=== PATIENT | female | born 1960 | race Caucasian/White ===

== ENCOUNTER → 2017-12-25 06:37 | Outpatient (CLI) | payer OTHER, SELFPAY ==
--- NOTE | 2017-12-25 06:41 | DI.MRI.S_ITS ---
PROCEDURE: MR SHOULDER LT WO CON INDICATIONS: LEFT SHOULDER PAIN TECHNIQUE: Noncontrast oblique coronal T2 fast spin echo with fat saturation, oblique sagittal T1 spin echo and T2 fast spin echo with fat saturation, axial T1 spin echo and T2 fast spin echo with fat saturation through the shoulder. COMPARISON: None. FINDINGS: Image quality: Excellent. Rotator cuff: There is tendinosis and moderate grade articular and bursal surface partial-thickness involving distal supraspinatus at its insertion the humeral head. Tendinosis high-grade bursal surface partial-thickness involving distal infraspinatus is seen at its insertion the humeral head extending to the musculotendinous junction. Subscapularis tendon is intact. Sagittal images demonstrate moderate supraspinatus muscle atrophy. Bones and bursae: No bone marrow contusions or fractures. There is moderate a.c. joint in the glenohumeral joint osteoarthritis. No fracture or dislocation. No acromioclavicular joint degeneration. The acromion demonstrates conventional anatomy, without an os acromiale. No pathologic subacromial-subdeltoid or subcoracoid bursal fluid is present. Capsule and soft tissues: In the absence of intra-articular contrast, there is suggestion of focal superior anterior labral tear at 1:00 to 2:00 position. Degenerative changes well inferior labrum is seen with possible inferior labral tear at 5 to 6:00 position. The long head of the biceps tendon demonstrates normal location and morphology. The rotator interval appears normal, without fibrosis. The coracohumeral ligament is normal in thickness. IMPRESSION: 1. Tendinosis and moderate grade articular and bursal surface partial-thickness involving distal supraspinatus at its insertion the humeral head. Moderate supraspinatus muscle atrophy. 2. Tendinosis and moderate to high-grade bursal surface partial-thickness involving distal infraspinatus extending to muscle or tendinous junction. 3. Suggestion of superior anterior labral tear at one to 2:00 position an anterior inferior labral tear at 5 to 6:00 position. 4. Moderate a.c. joint and glenohumeral joint osteoarthritis. Dictated by: Rob Mcdwoell M.D. on 12/25/2017 at 9:22 Approved by: Rob Mcdowell M.D. on 12/25/2017 at 9:52
== END ==
PROVIDERS: Visit Provider Orthopaedic Surgery
DX: M19.012 Primary osteoarthritis, left shoulder (principal); M62.512 Muscle wasting and atrophy, not elsewhere classified, left shoulder; M25.512 Pain in left shoulder
CPT/HCPCS: 73221

== ENCOUNTER → 2018-06-07 08:52 | Outpatient (CLI) | payer OTHER, SELFPAY ==
[2018-06-07 09:24] LABS: Add Manual Diff / Slide Review NO; Basophils Absolute Auto 100 /uL (0-100); Basophils Percent Auto 0.9 % (0-2); Eosinophils Absolute Auto 400 /uL (0-450); Eosinophils Percent Auto 6.7 % (2-4); Hematocrit 40.6 % (36-46); Hemoglobin 13.6 g/dL (12.0-16.0); Lymphocytes Absolute Auto 1500 /uL (1100-4500); Mean Corpuscular HGB Conc 33.4 % (30-36); Mean Corpuscular Hemoglobin 29.8 PG (26-34); Mean Corpuscular Volume 89.1 fL (80-100); Monocytes Absolute Auto 400 /uL (0-900); Monocytes Percent Auto 7.4 % (3-14); Neutrophils Absolute Auto 3400 /uL (1500-7000); Platelet Count 247 X10^3/uL (150-400); Red Blood Cell Count 4.56 X10^6/uL (4.0-5.2); Red Cell Distribution Width 14.4 % (11.6-14.8); White Blood Cell Count 5.7 X10^3/uL (4.5-11.0)
[2018-06-07 09:34] LABS: Alanine Aminotransferase 24 IU/L (9-52); Albumin 4.1 g/dL (3.5-5.0); Albumin Globulin Ratio 1.3 (1.0-2.8); Alkaline Phosphatase 70 U/L (38-126); Aspartate Aminotransferase 17 IU/L (14-36); BUN Creatinine Ratio 22.9 (6-22); Bilirubin Total 0.3 mg/dL (0.2-1.3); Blood Urea Nitrogen 16 mg/dL (7-17); Calcium 9.1 mg/dL (8.4-10.2); Carbon Dioxide 28 mmol/L (22-32); Chloride 108 mmol/L (98-107); Cholesterol 185 mg/dL (140-199); Estimated Glomerular Filt Rate > 60.0 mL/min (>60); Globulin 3.1 g/dL (1.7-4.1); Glucose 102 mg/dL (70-100); HDL Cholesterol 45 mg/dL (40-60); HEMOLYSIS < 15 (0-50); LDL Cholesterol Calculated 110 mg/dL (<100); Sodium 142 mmol/L (137-145); Total Protein 7.2 g/dL (6.3-8.2); Triglycerides 152 mg/dL (35-150)
[2018-06-07 10:04] LABS: Thyroid Stimulating Hormone 2.32 uIU/mL (0.47-4.68)
[2018-06-07 11:00] LABS: Appearance Urine UA CLEAR; Bilirubin Urine UA NEGATIVE (NEGATIVE); Color Urine UA YELLOW; Glucose Urine UA NEGATIVE (Negative); Ketones Urine UA NEGATIVE (NEGATIVE); Leukocyte Esterase Urine UA NEGATIVE (NEGATIVE); Nitrite Urine UA NEGATIVE (Negative); Occult Blood Urine UA 3+ (Negative); Protein Urine UA NEGATIVE (Negative); Specific Gravity Urine UA >=1.030 (1.000-1.035); Urobilinogen Urine UA 0.2 E.U./dL (0.2)
[2018-06-07 11:01] LABS: Bacteria Urine None Seen; WBC Urine None Seen (0-5/HPF)
[2018-06-07 11:06] LABS: Culture Indicated Urine Cult Not Indicated; RBC Urine 5-10/HPF (0-5/HPF)
== END ==
PROVIDERS: PCP Family Medicine; Visit Provider Family Medicine
DX: Z51.81 Encounter for therapeutic drug level monitoring (principal); Z13.220 Encounter for screening for lipoid disorders; Z13.29 Encounter for screening for other suspected endocrine disorder
CPT/HCPCS: 36415; 80053; 80061; 81003; 81015; 84443; 85025

== ENCOUNTER 2019-01-25 14:51 | Day surgery (SDC) | payer OTHER, SELFPAY ==
[2019-01-25] VITALS (7 sets, daily range): BP systolic 129–146; BP diastolic 80–89; PULSE 61–92; RESP 12–16; TEMP 36.2–36.9; O2SAT 97–100; BMI 21.3
--- NOTE | 2019-01-25 16:45 | PM.HP.1 ---
History of Present Illness History of Present Illness Date Patient Seen: 01/25/19 Time Patient Seen: 16:53 Chief complaint: [id number] Narrative: 58-year-old woman presents for 1st ever screening colonoscopy No family history of colon or rectal cancer, no family history of colon polyps No IBD No intestinal complaints Patient History Medical History (Updated 01/25/19 @ 15:20 by Kayla Johnson RN) Anxiety (Acute) Asthma (Acute) Pulmonary embolism (Acute) Surgical History Status post breast biopsy Social History household members: family Smoking Status: Former smoker (quit 1989) Tobacco: How many years used: 6 alcohol intake: never Family & Social History Social History: household members family Tobacco & Substance use: Smoking Status Former smoker alcohol intake never Meds Home Medications and Allergies Home Medications Medication Instructions Recorded Confirmed Type tizanidine 4 mg tablet 4 mg PO BID PRN #60 tab 05/31/18 01/25/19 Rx alprazolam 0.5 mg tablet 0.5 mg PO BID PRN #120 tab 12/08/18 01/25/19 Rx albuterol sulfate 90 mcg/actuation 2 puff INHALATION Q4HP PRN #1 inh 12/24/18 01/25/19 Rx aerosol inhaler Allergies Allergy/AdvReac Type Severity Reaction Status Date / Time clindamycin Allergy Severe SOB/THROAT Verified 07/07/18 10:23 SWELL levofloxacin Allergy Severe Difficulty Verified 01/25/19 15:16 Breathing moxifloxacin Allergy Severe Difficulty Verified 01/25/19 15:14 Breathing NSAIDS (Non-Steroidal Allergy Severe SOB/THROAT Verified 07/07/18 10:23 Anti-Inflamma SWELLS terbinafine Allergy Mild Nausea, Verified 09/03/18 12:48 diarrhea cefuroxime Allergy Unknown Verified 07/07/18 10:23 clarithromycin Allergy Unknown Verified 07/07/18 10:23 metronidazole Allergy Unknown Verified 07/07/18 10:23 nitrofurantoin Allergy Unknown Verified 07/07/18 10:23 omeprazole Allergy Unknown Verified 07/07/18 10:23 Quinolones Allergy Unknown Verified 07/07/18 10:23 Sulfa (Sulfonamide Allergy Unknown Verified 07/07/18 10:23 Antibiotics) tramadol Allergy Unknown Verified 07/07/18 10:23 sertraline AdvReac Mild DIZZY, Verified 07/07/18 10:23 FLOATING Review of Systems Constitutional Constitutional: Denies fever(s) Eyes Eyes: Denies bulging eyes ENT Ears, Nose, Mouth, and Throat: No lip swelling Cardiovascular Cardiovascular: Denies generalize swelling Respiratory Respiratory: Denies stridor Gastrointestinal Gastrointestinal: Denies coffee ground emesis Musculoskeletal Musculoskeletal: Denies loss of height Integumentary/Breasts Skin/Breast: Denies wounds Neurologic Neurologic: Denies abnormal speech and Denies confusion Psychiatric Psychiatric: Denies confusion and Denies tactile hallucinations Endocrine Endocrine: Denies deepening of the voice Hematologic/Lymphatic Hematologic/Lymphatic: Denies lymphadenopathy Allergic/Immunologic Allergic/Immunologic: Denies lip swelling Exam Vital Signs (past 8 hours): - 01/25/19 15:20 Temperature 98.5 F Pulse Rate 85 Respiratory Rate 14 Blood Pressure 133/86 Pulse Oximetry 97 Oxygen Delivery Method Room Air Const General: cooperative and healthy appearing Orientation: alert HENMT Head: normal to inspection Nose: nares normal Mouth: oral mucosae normal and lip normal Eyes Eyelids: eyelids normal Conjunctivae: conjunctivae normal Sclera: sclerae normal Neck Neck: supple and other (No thyromegally) Chest Chest: other (LCTAB , regular respiratory effort) Cardio Rhythm: regular rhythm Heart Sounds: S1 normal, S2 normal, no gallops, no murmurs and no rubs GI Other: Abdomen soft nontender nondistended Skin General: no rashes or lesions noted Neuro General: alert and awake Psych Appearance: grossly normal Affect: normal affect Assessment & Plan Assessment & Plan narrative: 58-year-old woman here for 1st ever screening colonoscopy Risks of procedure including bleeding, perforation, , hypoxia, missed lesions all discussed All questions answered Patient ready to proceed
--- NOTE | 2019-01-25 16:55 | PM.OP.ENDO ---
Operative Date/Time/Diagnoses Date of procedure: 01/25/19 Time of procedure: 17:43 Pre-op diagnosis: Colorectal cancer screening Post-op diagnosis: same Procedure & Clinicians Study performed: Screening colonoscopy - complete Same procedure as scheduled: Yes Indications: 58-year-old female presents for 1st ever screening colonoscopy Surgeon: Dewey Castellon Procedure Notes SCOAP/Timeout: COMPLETED Procedure in detail: Patient was brought to the endoscopy suite a time-out was completed, she was sedated with a total of 10 mg of midazolam and 225 micro g of fentanyl over the entire course of her procedure. A digital rectal exam was performed. This was without abnormality. The 160 cm colonoscope was then introduced into the anus and advanced through the folds of the rectum and colon to the cecum. The colorectal junction was quite tight requiring multiple maneuvers to negotiate past. Ultimately the cecum was identified via prominent ileocecal valve and Crows foot. There was a the near of adherent stool on much of the right colon and cecum that was cleared via irrigation. The scope was slowly withdrawn. There was transverse colon diverticula as well as substantial degree of sigmoid diverticula. Within the rectum the scope was retroflexed -there were sizable internal hemorrhoids. No additional lesions identified Prep was adequate Scope withdrawal time: 11 Sedation minutes: 41 Specimen(s): none sent Complications: none Impression: Significant diverticula of the sigmoid colon Mild amount of diverticula in the transverse colon Post-procedure Recommendations: Colonscopy in 10 years Plan for aftercare: As needed Follow up: as needed Disposition: PACU
[2019-01-25] MEDS: fentaNYL 250 MCG/5 ML INJ IV (17:42)
[2019-01-25] MEDS: MIDAZOLAM 5 MG/5 ML VIAL IV (17:45)
--- NOTE | 2019-01-25 18:09 | SUR.PHASEI ---
Assumed care at 1805. Pt dozing intermittently. Reported headache but denied abd pain. Abd soft.
== END 2019-01-25 18:43 | disposition home or self-care (01) ==
PROVIDERS: PCP Family Medicine; Visit Provider Surgery
PROC: 0DJD8ZZ Inspection of Lower Intestinal Tract, Via Natural or Artificial Opening Endoscopic (ICD-10-PCS; CPT 45378; principal; 2019-01-25 16:00)
DX: Z12.11 Encounter for screening for malignant neoplasm of colon (principal); K57.30 Diverticulosis of large intestine without perforation or abscess without bleeding; F41.9 Anxiety disorder, unspecified; J45.909 Unspecified asthma, uncomplicated; Z86.711 Personal history of pulmonary embolism
CPT/HCPCS: 45378; 99152; 99153; J2250; J3010

== ENCOUNTER → 2019-07-20 12:24 | Outpatient (CLI) | payer OTHER, SELFPAY ==
--- NOTE | 2019-07-20 12:25 | DI.MG.S_ITS ---
BILATERAL DIGITAL SCREENING MAMMOGRAM 3D/2D WITH CAD: 07/20/2019 CLINICAL: Routine screening. Family history of breast cancer. Comparison is made to exams dated: 05/08/2014 mammogram, 05/06/2013 mammogram, 05/05/2012 [facility], and 04/20/2012 stereotactic biopsy - [facility] [place] [place]. The tissue of both breasts is extremely dense, which lowers the sensitivity of mammography. Current study was also evaluated with a Computer Aided Detection (CAD) system. There is architectural distortion in the left breast at 12 o'clock middle depth. No other significant masses, calcifications, or other findings are seen in either breast. IMPRESSION: INCOMPLETE: NEEDS ADDITIONAL IMAGING EVALUATION The architectural distortion in the left breast is indeterminate. Additional views with possible ultrasound are recommended. This exam was interpreted at Station ID: [id number]. NOTE: For mammograms, a report in lay terms will be sent to the patient. Approximately 15% of breast malignancies will not be visualized mammographically. In the management of a palpable breast mass, a negative mammogram must not discourage biopsy of a clinically suspicious lesion. Electronically Signed By: Carie trivedi/:07/20/2019 17:07:46 letter sent: Additional Imaging Needed ACR BI-RADS Category 0: Incomplete [id number]
== END ==
PROVIDERS: PCP Internal Medicine; Referring Provider Internal Medicine; Visit Provider Family Medicine
DX: Z12.31 Encounter for screening mammogram for malignant neoplasm of breast (principal); Z80.3 Family history of malignant neoplasm of breast
CPT/HCPCS: 77063; 77067

== ENCOUNTER → 2019-08-04 14:08 | Outpatient (CLI) | payer OTHER, SELFPAY ==
--- NOTE | 2019-08-04 14:10 | DI.US.S_ITS ---
ULTRASOUND OF LEFT BREAST AND AXILLA: 08/04/2019 CLINICAL: Additional evaluation requested from prior study. Comparison is made to exams dated: 08/04/2019 mammogram, 07/20/2019 mammogram, 05/08/2014 mammogram, and 05/06/2013 mammogram - [facility]. Color flow and real-time ultrasound of the left breast axilla were performed. Bradford scale images of the real-time examination were reviewed. There is a 1 cm x 1.2 cm x 1 cm irregular mass with angular margins in the left breast at 2 o'clock middle depth 3 cm from the nipple. This irregular mass is hypoechoic with no posterior acoustic shadowing or enhancement. This correlates with mammography findings. Color flow imaging demonstrates that there is adjacent vascularity. No significant abnormalities were seen sonographically in the left axilla. IMPRESSION: HIGHLY SUGGESTIVE OF MALIGNANCY The 1 cm x 1.2 cm x 1 cm irregular mass in the left breast is highly suggestive of malignancy. An ultrasound guided biopsy is recommended. Findings and recommendations for biopsy were discussed with the patient by Dr. Nguyễn during today's visit. This exam was interpreted at Station ID: [id number]. Electronically Signed By: Leonid Villatoro M.D. aty/:08/04/2019 15:08:59 letter sent: Biopsy Required Ultrasound BI-RADS: 5 Highly suggestive of malignancy
--- NOTE | 2019-08-04 14:10 | DI.MG.S_ITS ---
UNILATERAL LEFT DIGITAL DIAGNOSTIC MAMMOGRAM 3D/2D WITH ADDITIONAL VIEWS: 08/04/2019 CLINICAL: Additional evaluation requested from prior study. Comparison is made to exams dated: 07/20/2019 mammogram, 05/08/2014 mammogram, and 05/06/2013 mammogram - [facility]. The tissue of left breast is extremely dense, which lowers the sensitivity of mammography. There is a 1.2 cm irregular equal density focal asymmetry in the left breast at 12 o'clock middle depth. There is architectural distortion associated with the focal asymmetry. No other significant masses or calcifications are seen in the breast. IMPRESSION: INCOMPLETE: NEEDS ADDITIONAL IMAGING EVALUATION The 1.2 cm irregular equal density focal asymmetry in the left breast is indeterminate. An ultrasound is recommended for further evaluation and is scheduled to immediately follow this study. This exam was interpreted at Station ID: [id number]. NOTE: For mammograms, a report in lay terms will be sent to the patient. Approximately 15% of breast malignancies will not be visualized mammographically. In the management of a palpable breast mass, a negative mammogram must not discourage biopsy of a clinically suspicious lesion. Electronically Signed By: Leonid Villatoro M.D. aty/:08/04/2019 14:51:47 ACR BI-RADS Category 0: Incomplete [id number]
== END ==
PROVIDERS: PCP Internal Medicine; Referring Provider Nurse Practitioner Family; Visit Provider Nurse Practitioner Family
DX: R92.8 Other abnormal and inconclusive findings on diagnostic imaging of breast (principal); N63.21 Unspecified lump in the left breast, upper outer quadrant
CPT/HCPCS: 76642; 77065; G0279

== ENCOUNTER → 2019-08-10 07:38 | Outpatient (CLI) | payer OTHER, SELFPAY ==
--- NOTE | 2019-08-10 | PATH_ITS ---
[facility] Accession Number: [id number] . 01 Material submitted: . breast - LEFT BREAST MASS . 01 Clinical history: . LEFT BREAST MASS . 01 Diagnosis: A. Left Breast, Mass, Biopsy: Invasive carcinoma, with ductal and lobular features, grade 2 of 3 ([place] combined histologic grade, total score 7/9) with the following features: 1. Tubular differentiation: Little or none. (3/3) 2. Nuclear pleomorphism: Intermediate. (2/3) 3. Mitotic rate: Intermediate. (2/3) 4. Size of invasive carcinoma: Present on multiple cores, single largest dimension of at least 13 mm in this sample. 5. Ductal carcinoma in situ and Lobular in situ neoplasia: Absent. 6. Calcifications: Absent. 7. Lymphatic space invasion: Multifocally present. 8. Prognostic markers: a. Estrogen receptor status: Positive (99%, Strong). b. Progesterone receptor status: Positive (More than 85%, Strong). c. HER2 status: Negative for protein overexpression by immunohistochemistry (0-1+). [facility] 08/12/2019 1244 Local . 01 Electronically signed: Bharathi Bardales MD, Pathologist NPI- [id number] . 01 Gross description: . Received one formalin-filled container, labeled with the patient's name and designated left breast mass. The specimen is received with a plastic filter in container, sample loose in container and consists of multiple yellow-rivas, rough, cylindrical-shaped portions of tissue which range in size from 1.2 x 0.2 x 0.2 cm to 1.7 x 0.3 x 0.2 cm. All fragments are entirely submitted in one cassette. Collection date: 3/25/20. Collection time per container: 8:42 a.m. Total fixation time: Approximately 12 hours. (DC:[id number]) /FRR 08/11/2019 0220 Local . 01 Microscopic: . D2-40 and p63 immunostains are performed on block A1 in order to assess areas suspicious for lymphovascular space invasion. The areas of interest demonstrate immunoreactivity for D2-40 and are negative for p63, in support of the diagnosis of lymphatic space invasion. Smooth muscle myosin is additionally negative in areas suspicious for in-situ neoplasia, in support of no evidence of in-situ neoplasia. . E-cadherin and beta-catenin immunostains are performed on block A1 in order to assess for lobular phenotype. For both markers, the invasive carcinoma has abnormal immunohistochemical staining pattern, with lost to attenuated membranous staining, focally punctate but also focally strong. These findings, along with the morphologic evidence of some glandular space formation, are best classified as invasive carcinoma with both ductal and lobular differentiation. . Poor preservation artifacts limit histologic assessment of this biopsy. . Predictive marker immunohistochemical studies are performed on block A1 with the invasive carcinoma showing the following results: . Estrogen receptor (SP1): Positive (99% of tumor cells staining, Staining intensity: Strong). Progesterone receptor (1E2): Positive (more than 85% of tumor cells staining, Staining intensity: Strong). Her2 (4B5): Negative for protein overexpression by immunohistochemistry (0-1+). . Internal controls for ER and MS are positive. Cold ischemic time is <5 minutes. The scoring criteria for breast biomarkers by immunohistochemistry is based on the ASCO/CAP guidelines (Toro AC et al, J Clin Oncol: 2017Nov 24;36(20):3289-4914 and Nithin CERVANTES et al, Arch Pathol Lab Med: 2009;134(6):907-22). Deparaffinized sections of formalin fixed tissue (along with appropriate positive controls) are incubated with the above antibody(s). Using the automated [place] stainer, tissue is incubated with the designated antibody which is then localized by a non-biotin, dual polymer detection system. The external controls are reviewed for appropriate reactivity and found to be adequate. Results on the target cell population are indicated above. These tests have not been validated on decalcified tissue. This test was developed and its performance characteristics determined by [facility]. It has not been cleared or approved by the U.S. Food and Drug Administration. The FDA has determined that such clearance or approval is not necessary. This test is used for clinical purposes. It should not be regarded as investigational or for research. . 01 Pathologist provided ICD-10: C50.912 . 01 CPT . 155710, F10713, U12078, 956342, 017746, 222580 Performed at: [address] [facility] [address], [place], [place] [id number] MD Magdi Verduzco MD Phone: [phone]
--- NOTE | 2019-08-10 | DI.MG.S_ITS ---
UNILATERAL LEFT DIGITAL DIAGNOSTIC MAMMOGRAM POST-NEEDLE BIOPSY: 08/10/2019 CLINICAL: Left breast mass. Comparison is made to exams dated: 08/04/2019 mammogram, 07/20/2019 mammogram, and 05/08/2014 mammogram - [facility]. The tissue of left breast is heterogeneously dense. This may lower the sensitivity of mammography. There is a marker clip in the appropriate position in the left breast at 1 o'clock middle depth. This marker clip placement is at the biopsy site. This correlates with ultrasound findings. IMPRESSION: POST PROCEDURE MAMMOGRAM FOR MARKER PLACEMENT There was a successful marker clip placement in the left breast middle depth. This exam was interpreted at Station ID: [id number]. NOTE: For mammograms, a report in lay terms will be sent to the patient. Approximately 15% of breast malignancies will not be visualized mammographically. In the management of a palpable breast mass, a negative mammogram must not discourage biopsy of a clinically suspicious lesion. Electronically Signed By: Clayton ortiz/corby:08/11/2019 14:54:41 ACR BI-RADS Category Post-procedure mammogram for marker placement
--- NOTE | 2019-08-10 07:40 | DI.US.S_ITS ---
ULTRASOUND GUIDED BIOPSY LEFT BREAST USING VACUUM DEVICE WITH MARKING DEVICE INSERTED AND POST MAMMOGRAPHIC IMAGIN08/10/2019 CLINICAL: Left breast mass. PATIENT CONSENT: Risks (minor bleeding, infection, vasovagal reaction and repeat procedure), benefits and alternatives were explained to the patient and written informed consent was obtained. Correlation is made to exams dated: 08/10/2019 mammogram, 08/04/2019 ultrasound, 08/04/2019 mammogram, 07/20/2019 mammogram, and 05/08/2014 mammogram - [facility]. An ultrasound guided biopsy using real-time ultrasound was performed for the concerning 0.8 cm x 0.7 cm x 0.8 cm indistinct irregular shaped solid mass located in the left breast at 1 o'clock middle depth. The skin was prepped in the usual manner. Local anesthetic was administered to the access site. A skin tito was made in the breast. The abnormality was approached from the lateral aspect. A 13 gauge biopsy needle was placed adjacent to the abnormality under ultrasound guidance. Once the needle was documented to be in the correct location, five specimens were obtained using the Mammotome biopsy system. The patient received additional local anesthetic during the procedure. A Vision marker clip was inserted into the biopsy cavity. A skin closure strip and a sterile dressing were applied to the access site. Post procedure mammographic imaging demonstrates the location device at the targeted area and partial removal of the abnormality. The specimens were sent to the laboratory for pathological analysis. IMPRESSION: ULTRASOUND GUIDED BIOPSY MALIGNANT Ultrasound guided biopsy of the 0.8 cm x 0.7 cm x 0.8 cm solid mass in the left breast at 1 o'clock middle depth was successful. 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 Pathology results are concordant with mammography and ultrasound findings. This exam was interpreted at Station ID: [id number]. Clayton Hinton M.D. [facility],ddp/:08/15/2019 11:04:09
--- NOTE | 2019-08-10 08:55 | DI.MG.S_ITS ---
Patient Name: CATHY PHILLIPS date: 1960 Sex: F Attending Physician: Gianfranco Indications: Date: 08/10/2019 08:09 At the request of: JUANA FLANNERY Procedure: MM diagnostic mammo [id number] UNILATERAL LEFT DIGITAL DIAGNOSTIC MAMMOGRAM POST-NEEDLE BIOPSY: 08/10/2019 CLINICAL: Left breast mass. Comparison is made to exams dated: 08/04/2019 mammogram, 07/20/2019 mammogram, and 05/08/2014 mammogram - [facility]. The tissue of left breast is heterogeneously dense. This may lower the sensitivity of mammography. There is a marker clip in the appropriate position in the left breast at 1 o'clock middle depth. This marker clip placement is at the biopsy site. This correlates with ultrasound findings. IMPRESSION: POST PROCEDURE MAMMOGRAM FOR MARKER PLACEMENT There was a successful marker clip placement in the left breast middle depth. This exam was interpreted at Station ID: [id number]. NOTE: For mammograms, a report in lay terms will be sent to the patient. Approximately 15% of breast malignancies will not be visualized mammographically. In the management of a palpable breast mass, a negative mammogram must not discourage biopsy of a clinically suspicious lesion. Electronically Signed By: Clayton ortiz/corby:08/11/2019 14:54:41 ACR BI-RADS Category Post-procedure mammogram for marker placement
--- NOTE | 2019-08-18 11:16 | ONC.MSW ---
Addendum entered and electronically signed by SHERRON Galeana 08/18/19 12:59: Called pt back and confirmed her initial appt. time for next , 08/22, 10:00am. Original Note: Description: T/C-Initial Referral Navigation Activity: Called pt to confirm that we've received her referral, and are waiting on the pending prior-auth from her insurance in order to get her scheduled. Discussed ongoing assistance, support and resources that are available here at [facility], as well as explained what to expect with her first visit/role of the Oncologist. 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 MANAGER SHOP will call her back to schedule once we've received the prior auth from insurance. No further immediate needs are identified at this time.
== END ==
PROVIDERS: PCP Internal Medicine; Referring Provider Nurse Practitioner Family; Visit Provider Nurse Practitioner Family
DX: C50.412 Malignant neoplasm of upper-outer quadrant of left female breast (principal); Z17.0 Estrogen receptor positive status [ER+]
CPT/HCPCS: 19083; 77065

== ENCOUNTER → 2019-08-29 11:48 | Outpatient (CLI) | payer OTHER, SELFPAY ==
[2019-08-29 19:49] LABS: COVID19 Sendout Not Detected
== END ==
PROVIDERS: PCP Internal Medicine; Visit Provider Registered Nurse
DX: Z20.828 Contact with and (suspected) exposure to other viral communicable diseases (principal)
CPT/HCPCS: 87635

== ENCOUNTER → 2019-09-12 08:55 | Outpatient (CLI) | payer OTHER, SELFPAY ==
--- NOTE | 2019-09-12 08:58 | DI.MRI.S_ITS ---
BREAST MRI OF BOTH BREASTS: 09/12/2019 CLINICAL: Left breast cancer. PROCEDURE: MR BREAST BI WO/W CON INDICATIONS: left breast cancer; surgical planning; eval lymph nodes TECHNIQUE: The patient was placed prone in a dedicated breast imaging coil. Precontrast axial STIR and 3D FLASH without fat saturation sequences were obtained. Both before and after bolus injection of contrast, sequential 1-minute axial 3D FLASH with fat saturation sequences for 3 time points, with subtraction images and maximum intensity projections (MIP's) generated. Delayed sagittal FLASH images with fat saturation were also obtained. Computer-aided detection, including computer algorithm analysis of MRI image data for lesion detection and characterization, pharmacokinetic analysis, with further physician review for interpretation, was performed. COMPARISON: None. FINDINGS: Image quality: Excellent. There is moderate background parenchymal enhancement. Right breast: Scattered foci of enhancement are present within the upper quadrants of the right breast. The largest region measures approximately 0.5 x 0.5 x 1.3 cm at 12:00 at a posterior depth (series 15/image 61 and series 6/image 82). This region demonstrates a combination of both rapid and medium initial kinetic analysis and predominantly persistent enhancement on the delayed phase kinetics. Similar subcentimeter lesions are present in this region (series 12/image 83). Left breast: There is a 1.2 x 1.7 x 1.9 cm spiculated mass in the left breast at 12:00 at a middle depth which corresponds with the ultrasound-guided, biopsy proven neoplasm. This region demonstrates a combination of both rapid and medium initial kinetic analysis and predominantly persistent enhancement on the delayed phase kinetics. This mass measured 1.0 x 1.2 x 1.0 cm on the comparison ultrasound dated 08/04/19. Surrounding this mass is a region of non-masslike enhancement which measures approximately 5.0 x 1.3 x 3.9 cm. This region of non-masslike enhancement is not characterized on the comparison ultrasound or mammogram. No other suspicious enhancement or mass lesions within the left breast. Miscellaneous: No axillary adenopathy. No intramammary adenopathy. Visualized portions of the mediastinum, lungs, and upper abdomen are unremarkable. IMPRESSION: INCOMPLETE: NEEDS ADDITIONAL IMAGING EVALUATION 1. Multiple small foci of enhancement at a posterior depth at 12:00 in the right breast. A second look ultrasound is recommended to further characterize these findings and evaluate for possible ultrasound-guided biopsy. Differential considerations include contralateral neoplasm versus enhancing fibroglandular tissue. 2. Spiculated mass in the left breast which corresponds with the biopsy proven neoplasm and is greater in size than on the comparison ultrasound dated 08/04/19. Additionally, there is a large region of non-masslike enhancement likely representing infiltrative tumor not characterized by ultrasound or mammogram. 3. No findings to suggest quinton metastasis. This exam was interpreted at Station ID: [id number]. Electronically Signed By: Carie Saleh M.D. lk/:09/12/2019 16:30:21 letter sent: Additional Imaging Needed ACR BI-RADS Category 0: Incomplete [id number]
== END ==
PROVIDERS: PCP Internal Medicine; Referring Provider Surgery; Visit Provider Surgery
DX: R92.8 Other abnormal and inconclusive findings on diagnostic imaging of breast (principal); C50.412 Malignant neoplasm of upper-outer quadrant of left female breast; N64.89 Other specified disorders of breast; Z17.0 Estrogen receptor positive status [ER+]
CPT/HCPCS: 77049; A9579

== ENCOUNTER → 2019-09-16 12:41 | Outpatient (CLI) | payer OTHER, SELFPAY ==
--- NOTE | 2019-09-16 12:42 | DI.US.S_ITS ---
ULTRASOUND OF RIGHT BREAST: 09/16/2019 CLINICAL: Additional evaluation requested from prior study. Comparison is made to exams dated: 09/12/2019 breast MRI, 07/20/2019 mammogram, and 05/08/2014 mammogram - [facility]. Real-time ultrasound of the right breast was performed on the areas of interest. Bradford scale images of the real-time examination were reviewed. IMPRESSION: SUSPICIOUS OF MALIGNANCY There is no abnormality seen in the right breast to correspond with the breast MRI finding at 12 o'clock. If further carachterization of the region of incresed enhancement in the right breast is warranted, MRI guided biopsy is recommended. This exam was interpreted at Station ID: [id number]. SUMMARY: This was discussed with the patient by the radiologist Dr. Hull at the time of the exam. This exam was interpreted at Station ID: [id number]. Electronically Signed By: Carie trivedi/:09/16/2019 16:13:57 letter sent: Biopsy Required Ultrasound BI-RADS: 4a Low suspicion for malignancy
== END ==
PROVIDERS: PCP Internal Medicine; Referring Provider Surgery; Visit Provider Surgery
DX: R92.8 Other abnormal and inconclusive findings on diagnostic imaging of breast (principal)
CPT/HCPCS: 76642

== ENCOUNTER → 2019-09-27 08:59 | Outpatient (CLI) | payer OTHER, SELFPAY ==
[2019-09-27 11:33] LABS: COVID19 -Nasal RAPID Negative (Negative)
== END ==
PROVIDERS: PCP Internal Medicine; Visit Provider Physician Assistant
DX: Z01.818 Encounter for other preprocedural examination (principal)
CPT/HCPCS: 87635

== ENCOUNTER → 2019-09-27 09:10 | Outpatient (CLI) | payer OTHER, SELFPAY ==
[2019-09-27 09:36] LABS: Add Manual Diff / Slide Review NO; Basophils Absolute Auto 100 /uL (0-100); Basophils Percent Auto 0.8 % (0-2); Eosinophils Absolute Auto 300 /uL (0-450); Eosinophils Percent Auto 4.4 % (2-4); Hemoglobin 13.9 g/dL (12.0-16.0); Lymphocytes Absolute Auto 1600 /uL (1100-4500); Lymphocytes Percent Auto 21.2 % (25-40); Mean Corpuscular Hemoglobin 31.1 PG (26-34); Mean Corpuscular Volume 91.4 fL (80-100); Monocytes Absolute Auto 600 /uL (0-900); Monocytes Percent Auto 7.4 % (3-14); Neutrophils Absolute Auto 5000 /uL (1500-7000); Neutrophils Percent Auto 66.2 % (50-75); Platelet Count 271 X10^3/uL (150-400); Red Blood Cell Count 4.49 X10^6/uL (4.0-5.2); Red Cell Distribution Width 14.4 % (11.6-14.8); White Blood Cell Count 7.6 X10^3/uL (4.5-11.0)
[2019-09-27 09:49] LABS: Alanine Aminotransferase 19 IU/L (<35); Albumin 4.2 g/dL (3.5-5.0); Albumin Globulin Ratio 1.4 (1.0-2.8); Alkaline Phosphatase 65 U/L (38-126); Aspartate Aminotransferase 25 IU/L (14-36); BUN Creatinine Ratio 34.4 (6-22); Bilirubin Total 0.4 mg/dL (0.2-1.3); Blood Urea Nitrogen 21 mg/dL (7-17); Calcium 9.4 mg/dL (8.4-10.2); Carbon Dioxide 25 mmol/L (22-32); Chloride 106 mmol/L (98-107); Estimated Glomerular Filt Rate > 60.0 mL/min (>60); Globulin 3.1 g/dL (1.7-4.1); Glucose 114 mg/dL (80-110); HEMOLYSIS 22 (0-50); Potassium 3.7 mmol/L (3.4-5.1); Sodium 140 mmol/L (137-145); Total Protein 7.3 g/dL (6.3-8.2)
== END ==
PROVIDERS: PCP Internal Medicine; Referring Provider Internal Medicine Hematology & Oncology; Visit Provider Internal Medicine Hematology & Oncology
DX: Z11.59 Encounter for screening for other viral diseases (principal); Z01.818 Encounter for other preprocedural examination; C50.412 Malignant neoplasm of upper-outer quadrant of left female breast; Z17.0 Estrogen receptor positive status [ER+]
CPT/HCPCS: 36415; 80053; 85025; 87635

== ENCOUNTER 2019-09-30 08:29 | Day surgery (SDC) | payer OTHER, SELFPAY ==
[2019-09-21 11:43] VITALS: BMI 22.3
[2019-09-30] VITALS (13 sets, daily range): BP systolic 92–123; BP diastolic 45–75; PULSE 67–102; RESP 11–21; TEMP 36.3–36.8; O2SAT 94–99; BMI 22.3
--- NOTE | 2019-09-30 | PATH_ITS ---
[facility] Accession Number: [id number] . 01 Material submitted: . PART A: lymph node - LEFT SENTINAL AXILLARY NODE PART B: breast - LEFT BREAST . 01 Clinical history: . LEFT BREAST MASTECTOMY AND LEFT SENT NODE BX . 02 Diagnosis: A. Left [place] Axillary Nodes, Excision: 2 of 5 sentinel nodes positive for micrometastatic carcionma. Please see CAP summary data below. . B. Left Breast, Mastectomy: Invasive carcinoma with mixed lobular and ductal features. Please see CAP summary data below. . SURGICAL PATHOLOGY CANCER CASE SUMMARY INVASIVE CARCINOMA OF THE BREAST . Procedure: Total mastectomy. Specimen Laterality: Left. Tumor site: Central. Tumor size: Size of largest invasive focus: 5.6 cm, see comment. Histologic type: Invasive carcinoma with mixed lobular and ductal features. Histologic grade (Anastacio Histologic Score): Glandular/Tubular differentiation: Score 3. Nuclear Pleomorphism: Score 2. Mitotic Rate: Score 3. Overall Grade: Grade 3. Tumor focality: Single focus of invasive carcinoma. Ductal carcinoma in situ: Not identified. Lobular carcinoma in situ: Present. Tumor Extension: Skin is present and uninvolved. Skeletal muscle: No skeletal muscle present. . Margins Invasive Carcinoma Margins: Positive at the posterior lateral margin (2 foci, 0.1 cm total extent). Distance from other margins: Anterior Superior: 6 mm. . Regional Lymph nodes: Involved by tumor cells. Lymph Node Examination: Number of lymph nodes with macrometastases (greater than 2 mm): 0. Number of lymph nodes with micrometastases (greater than 0.2 mm to 2 mm and/or greater than 200 cells): 2. Number of lymph nodes with isolated tumor cells: 0. Size of Largest Metastatic Deposit: 2 mm. Extranodal Extension: Not identified. Total Number of Lymph Nodes Examined: 5. Number of [place] Lymph Nodes Examined: 5. Treatment Effect in the Breast: No known presurgical therapy. Treatment Effect in the Lymph Nodes: Not applicable. . Lymphovascular invasion: Present and extensive. Dermal Lymphovascular Invasion: Not identified. . Pathologic Stage Classification (pTNM, AJCC 8th Edition) Primary Tumor: pT3. Regional Lymph Nodes: pN1mi(sn). Additional Pathologic Findings: Patchy adenosis and usual ductal hyperplasia. Fibrotic stroma also present; please see comment. . Breast Biomarker Testing Performed On Previous Biopsy ([id number]): Estrogen Receptor: Positive, 99%, strong. Progesterone Receptor: Positive, greater than 85%, strong. HER2 By Immunohistochemistry: Negative (score 1+). . Microcalcifications: Present in invasive carcinoma and in non-neoplastic tissue. . . [facility] 10/04/2019 1641 Local . 02 Comment: The main tumor mass as measured on a single slide (B36) is 21 mm. However, based on the presence of lobular carcinoma extending through 14 contiguous slices of breast, each measuring 0.4 cm in thickness, the final medial to lateral size of the carcinoma is 5.6 cm. In addition, there is extensive stromal fibrosis and amorphous stromal changes which may represent reactive changes or scar. However, a Congo red stain will be performed to evaluate for the possibility of amyloid, and the results reported as an addendum. . . . . . . 02 Electronically signed: . Kayla Dooley MD, Pathologist NPI- [id number] . 01 Gross description: . (A) Received in formalin, labeled left sentinel nodes (axillary), are multiple pieces of adipose tissue (6.3 x 3.0 x 1.0 cm in aggregate) containing multiple possible lymph nodes (0.2 x 0.2 x 0.1 cm to 1.2 x 1.0 x 0.8 cm). Section code: (A1) multiple intact lymph nodes; (A2, A3) one serially sectioned lymph node in each cassette. . (B) Received: In formalin, labeled left breast short stitch superior, long lateral. Specimen: Left skin sparing simple mastectomy. Weight: 192 grams. Measurement: 3.2 cm anterior to posterior, 11.2 cm medial to lateral, and 10.0 cm superior to inferior. Skin Ellipse: Present, paulson-white smooth and shiny, measuring 4.5 x 3.7 cm. Nipple/Areola: 1.0 x 0.9 cm diameter everted nipple within a 2.9 x 2.7 cm diameter areola. No obvious scar is identified. Axillary Tail: Absent. Margins: The specimen is oriented by surgeon with short superior and long lateral sutures. The posterior surface is smooth and covered by fascia and is inked black. The anterior soft tissue margins are unremarkable, adjacent to the skin, are inked blue for anterior superior and green for anterior inferior. Slices: Serially sectioned medial to lateral into 24 slices. Lesion: One definitive mass is identified located in slices 15-19. Description: Bradford-white, ill defined, firm, and contains a broad shaped biopsy marker within slice 17. Size: Approximately 1.8 x 1.6 x 1.5 cm. It is difficult to measure the exact extension of the mass due to the surrounding fibrous tissue. Slices Involved: Slices 14-18 within the upper outer quadrant. Distance To Margins: 0.6 cm from the posterior margin, 1.5 cm from the superior-anterior margin, and 2.8 cm from the inferior-anterior margin, 3.5 cm from the skin, and 3.8 cm from the nipple and areolar complex. Other: The remaining parenchyma is diffusely fibrous with dispersed irregularly firm areas. No other definitive lesions are identified. Fixation: The specimen was placed in formalin on 09/30/2019 with no time given. The approximate total fixation time is calculated to be 46 hours 30 minutes. Sections: B1: Nipple, bisected and entirely submitted. B2: Skin, energy conservation representative. B3: Slice 4, fibrous tissue, energy conservation representative. B4: Slice 5, fibrous tissue, energy conservation representative. B5, B6: Slice 6, fibrous tissue, energy conservation representative. B7, B8: Slice 7, fibrous tissue, energy conservation representative. B9, B10: Slice 8, fibrous tissue, energy conservation representative. B11, B12: Slice 9, fibrous tissue, energy conservation representative. B13, B14: Slice 10, fibrous tissue, energy conservation representative. B15, B16: Slice 11, fibrous tissue, energy conservation representative. B17-B19: Slice 12, fibrous tissue, energy conservation representative adjacent tissue, submitted superior to inferior. B20-B22: Slice 13, fibrous tissue, energy conservation representative adjacent tissue submitted superior to inferior. B23-B24, B25: Slice 14, slice directly medially adjacent to mass, fibrous tissue is identified, no definitive mass is identified within this tissue and is not included in the mass measurement. B26-B31: Slice 15, mass identified, energy conservation representative submitted superior to inferior and anterior to posterior. B32-B35: Slice 16, mass identified, energy conservation representative submitted superior to inferior and anterior to posterior. B36, B37, B38: Slice 17, mass identified, location of biopsy clip. B39-B42: Slice 18, mass identified, energy conservation representative submitted superior to inferior and anterior to posterior. B43-B44: Slice 19, mass identified, energy conservation representative submitted superior to inferior. B45-B47: Slice 20, slice directly lateral to mass, densely fibrous tissue, no definitive mass is identified and is not included in the measurement of the mass, submitted superior to inferior and anterior to posterior. B48-B49: Slice 21, fibrous tissue, energy conservation representative submitted superior to inferior. B50: Slice 22, fibrous tissue, energy conservation representative. ([id number]) B51-52: Slice 23, energy conservation representative sections. B53-55: Slice 25, perpendicularly sectioned, energy conservation representative. /MRV 10/04/2019 1641 Local . 02 Microscopic: . A. Immunohistochemical stains for cytokeratin LEVI were performed on blocks A1 through A3 to evaluate for metastatic carcinoma. Groups of cells in 2 of 4 lymph nodes in block A1 are positive. The control stain showed appropriate reactivity. . B. An immunohistochemical stain for D240 was performed on block B7 in order to evaluate for lymphovascular invasion. D240 highlights endothelial cells around the areas of interest consistent with lymphovascular invasion. The control stain showed appropriate reactivity. . * This test was developed and its performance characteristics determined by [employer]. It has not been cleared or approved by the U.S. Food and Drug Administration. The FDA has determined that such clearance or approval is not necessary. This test is used for clinical purposes. It should not be regarded as investigational or for research. . 02 Pathologist provided ICD-10: C50.912 . 02 CPT . 025818, 842719, [id number] Performed at: 01 [facility] [address] [facility] [place], [place], [place] [id number] MD Magdi Verduzco MD Phone: [phone] Performed at: 02 [facility] [address] [facility] [place], [place] [id number] MD Kayla Dooley MD Phone: [phone]
--- NOTE | 2019-09-30 09:05 | DI.NM.S_ITS ---
PROCEDURE: NM SENTINEL NODE W IMAGING RADIOPHARMACEUTICAL: 1.0 mCi Millipore filtered Tc-99m sulfur colloid. INDICATIONS: left breast cancer, Tech-99 subareaolar injection + mapping TECHNIQUE: The area around the nipple was prepped and draped in a sterile fashion. Tc-99m sulfur colloid was injected intra-dermally in the outer edge of the areola in the left breast. Images were obtained subsequently. A body contour outline was obtained. FINDINGS: There is a single lymph node in the ipsilateral axilla, which is marked on the skin and the images for referring physician. IMPRESSION: Administration of radiotracer into the left breast periareolar region for intra-operative sentinel lymph node localization. Single sentinel lymph node identified and discussed with the breast surgeon specialist prior to surgery. Dictated by: Clayton Cruz M.D. on 09/30/2019 at 10:25 Approved by: Clayton Cruz M.D. on 09/30/2019 at 10:27
[2019-09-30] MEDS: LACTATED RINGERS 1,000 ML 42 ML IV ×3 (10:32→14:20)
[2019-09-30] MEDS: VANCOMYCIN 1,000 MG/200 ML PIGGYBACK 200 MG IV (10:40)
--- NOTE | 2019-09-30 10:49 | PM.PREOP ---
Pre-operative Note COVID-19 COVID-19 status: Negative Result date/Date tested (Pos, Neg/Pending): 09/27/19 Interval Note History & Physical reviewed/Exam performed by Physician: Yes Changes to H&P: No
[2019-09-30] MEDS: BUPIVACAINE 0.25% W/ EPI 30 ML VIAL INJ (11:27)
--- NOTE | 2019-09-30 11:29 | SUR.OPER ---
Supine on padded OR bed, head on pillow, arms secured on padded arm boards at <90 degrees abduction, legs uncrossed, safety belt at thigh, tape over blanket over lower legs.
[2019-09-30] MEDS: BUPIVACAINE LIPOSOME 266 MG/20 ML VIAL INJ (11:44)
[2019-09-30] MEDS: fentaNYL 100 MCG/2 ML INJ IV ×2 (13:26→13:39)
[2019-09-30] MEDS: MEPERIDINE 50 MG/ML INJ 25 MG IV (13:27)
--- NOTE | 2019-09-30 13:44 | PM.OP.1 ---
Operative Date/Time/Diagnoses Date of procedure: 09/30/19 Time of procedure: 13:44 Pre-op diagnosis: left breast cancer Post-op diagnosis: same Procedure & Clinicians Procedure: Left skin sparing mastectomy; left axillary sentinel node biopsy Same procedure as scheduled: Yes Indications: Left breast cancer, invasive with ductal and lobular features; 5cm in size on breast MRI Surgeon: Maryse Turner Yes if Unassisted: Yes Anesthesia Type: General Operative Notes Findings: Large left breast mass; hot sentinel nodes with appropriate gamma counts Closure Type: primary Specimen(s): other (Left breast, left axillary hot sentinel lymp nodes) Applied: drain(s) (ALEXANDR drain) Estimated Blood Loss (mL): 5 Blood products transfused: none Procedure in detail: The patient was brought into the OR and placed supine on the OR table. Sequential compression devices were placed on both legs and turned on. General anesthesia was induced and the patient was intubated with an LMA. Appropriate perioperative antibiotics were given. The left chest and axilla were prepped and draped in sterile fashion. Surgical time out was performed. The gamma probe was then used to identify a hot spot in the axilla. Local anesthetic was infiltrated in the skin in an appropriate skin crease at the border of the axilla. A 15 blade was then used to make a 4cm curvilinear incision in the skin at this site. Dissection was carried down to through subcutaneous fat using cautery. The clavipectoral fascia was identified and opened. A small lymph node was identified using the gamma probe, and was removed. Gamma count was 772 in this node. Gamma count of the axilla after removal of the node was 216. Dissection was undertaken again in the direction of the count. A group of two nodes was found. These nodes were dissected free and removed from the axilla. Count in these nodes was 776. The nodes were passed off the table for pathology. The remaining count in the axilla was then 72. Hemostasis was achieved in the axilla with cautery. I then tucked a Raytec in the axilla and attention was then turned to the breast. Local anesthetic was infiltrated into the skin in the area of the planned periareaolar modified eliptical incision. A 10 cm transverse modified eliptical incision was made at that site for skin sparing mastectomy. Dissection was carried along the junction of the breast tissue and the subcutaneous fat up to the clavical superiorly, the inframammary fold inferiorly, the sternal midline medially. I then dissected the breast tissue off of the pectoral muscle, taking the pectoral fascia from medial to lateral. Once we reached the lateral border of the pectoral muscle, the tail of José Luis was dissected superiorly until the entire breast was free. It was then delivered from the wound and marked with short stitch superior and long stitch lateral. The nipple areolar complex identifies the anterior surface, and the pectoral fascia identifies the deep surface. Hemostasis was achieved using cautery. There was no active bleeding and the wound was clean. Local anesthetic was infiltrated in both wounds using the remaining 0.25% Marcaine with epi for a total of 60mL, and Exparel for a total of 20 mL. A 10French flat drain was placed in the wound across the pectoral muscle, exiting the left lateral border of the wound at the inframammary fold. The drain was secured in place with a 3-0 Nylon suture in the skin. 2-0 Vicryl was used to close the deep subcutaneous and dermis. Then 3-0Vicryl was used to close the dermis of the breast incision and the axillary incision after removing the Raytec from the axilla. 4-0 Monocryl was used to close the skin with a subcuticular running suture. The skin of the axilla was then sealed with dermabond. The breast incision was covered with steri strips, and a 10cm Telfa secured in place with two Tegaderms. The ALEXANDR drain was dressed with 4x4 gauze and secured with Tegaderm. A surgical support was placed on the patient. The patient was then awakened from anesthesia and extubated. Needle sponge and instrument counts were correct x 2. The patient was transferred to the PACU in stable condition. Complications: none Post-operative Condition: stable Disposition: PACU
--- NOTE | 2019-09-30 14:45 | SUR.PHASEII ---
Discharged patient in stable condition via wheelchair to meet family member, Malik. All instructions given to patient and explained to family member. Patient ambulated to bathroom to void without difficulty prior to d/c.
== END 2019-09-30 14:47 | disposition home or self-care (01) ==
PROVIDERS: PCP Internal Medicine; Referring Provider Surgery; Visit Provider Surgery
PROC: 0HTU0ZZ Resection of Left Breast, Open Approach (ICD-10-PCS; CPT 19303; principal; 2019-09-30 10:45)
DX: C50.912 Malignant neoplasm of unspecified site of left female breast (principal); Z17.0 Estrogen receptor positive status [ER+]; F17.210 Nicotine dependence, cigarettes, uncomplicated; Z86.711 Personal history of pulmonary embolism; F41.9 Anxiety disorder, unspecified; C77.3 Secondary and unspecified malignant neoplasm of axilla and upper limb lymph nodes
CPT/HCPCS: 19303; 38525; 78195; A9541; C9290; J1100; J2175; J2405; J2704; J3010

== ENCOUNTER → 2019-10-30 09:28 | Outpatient (CLI) | payer OTHER, SELFPAY ==
[2019-10-31 02:45] LABS: COVID19 Sendout Not Detected (Not Detect)
== END ==
PROVIDERS: PCP Internal Medicine; Visit Provider Physician Assistant
DX: Z01.812 Encounter for preprocedural laboratory examination (principal)
CPT/HCPCS: 87635

== ENCOUNTER 2019-11-03 07:53 | Observation (INO) | payer OTHER, SELFPAY ==
[2019-10-26 14:36] VITALS: BMI 22.3
[2019-11-02] VITALS (16 sets, daily range): BP systolic 106–150; BP diastolic 60–85; PULSE 75–96; RESP 12–20; TEMP 35.8–37.2; O2SAT 94–99; BMI 20.8; BMI 21.4
--- NOTE | 2019-11-02 | DI.RAD.S_ITS ---
PROCEDURE: XR CHEST 1V INDICATIONS: PORT A CATH PLACEMENT TECHNIQUE: One view of the chest was acquired. COMPARISON: [facility], , CHEST 2 VIEW, 01/15/2015, 18:15. FINDINGS: Surgical changes and devices: Right-sided port with the catheter tip at the cavoatrial junction. Surgical drain overlying the right chest. Left axillary and left breast clips. Lungs and pleura: Lungs are clear. No pleural effusions or pneumothorax. Mediastinum: Mediastinal contours appear normal. Heart size is normal. Bones and chest wall: No suspicious bony lesions. Overlying soft tissues appear unremarkable. IMPRESSION: Right Port-A-Cath with the tip at the cavoatrial junction. No pneumothorax. Dictated by: Mariusz Fong M.D. on 11/02/2019 at 14:20 Approved by: Mariusz Fong M.D. on 11/02/2019 at 14:22
--- NOTE | 2019-11-02 | PATH_ITS ---
[facility] Accession Number: [id number] . 01 Material submitted: . PART A: chest - LEFT CHEST WALL MARGIN PART B: lymph node - RIGHT AXILLARY SENTINEL NODE PART C: breast - RIGHT BREAST . 01 Clinical history: . C. SHORT STITCH SUPERIOR, LONG STITCH LATERAL . 02 Diagnosis: A. Left Chest Wall Margin: Fibroadipose tissue and scant skeletal muscle; negative for malignancy. . B. Right Axillary Pioneer Node: Three lymph nodes negative for metastatic carcinoma by histomorphology (0/3). Immunohistochemistry studies pending; results will be reported as an addendum. . C. Right Breast, Skin Sparing Mastectomy (Weight 172 grams): Benign breast parenchyma with fibroadenomatous and fibrocystic change including cystic dilatation of terminal ductules, ductal hyperplasia without atypia, stromal fibrosis, adenosis, and apocrine metaplasia, and a 4 mm focus of papillomatosis with associated micro- calcifications. Changes consistent with previous instrumentation/biopsy site are present. No epithelial atypia or tumor identified. Skin and nipple with no significant histomorphologic abnormality. [facility] 11/07/2019 1626 Local . 02 Electronically signed: . Elke Pizano MD, Pathologist NPI- [id number] . 01 Gross description: . Specimen A is received in formalin, labeled with patient identification and left chest wall margin. It consists of an unoriented yellow-paulson and lobulated fibroadipose tissue piece measuring 2.5 x 1.2 x 0.6 cm. Sectioning reveals homogenously yellow-paulson cut surfaces without any grossly identified discrete masses or lesions. The entire specimen is submitted in three cassettes. . Summary of Sections: A1 - #1, perpendicular, four pieces. A2 - Sections of the specimen, four pieces. A3 - #2, perpendicular, three pieces. . Specimen B is received in formalin, labeled with patient identification and right axillary sentinel node. It consists of brown to yellow-paulson tissue pieces measuring 5.0 x 1.8 x 0.7 cm. There are two lymph node candidates ranging from 0.3 to 4.0 cm in greatest dimension. The entire specimen is submitted in four cassettes. . Summary of Sections: B1-B2 - One sectioned lymph node candidate, together, four pieces each. B3 - One intact lymph node candidate, one piece. B4 - The remaining adipose tissue, one piece. . Specimen C is received in formalin, labeled with patient identification and right breast and long stitch lateral, short stitch superior. . Specimen: Skin bearing mastectomy. Weight: 172.0 grams. Measurement: 4.2 cm anterior to posterior, 7.7 cm from lateral to medial, and 10.5 cm from superior to inferior. Skin Ellipse: Present with nipple; the everted nipple is 1.2 cm in diameter, the areola is 2.7 cm in diameter, the skin is 5.2 x 2.7 cm without any grossly identified skin lesion. Wire: Absent. Margins: Oriented with short superior suture, long lateral suture, and inked as follows: posterior = black; superior/anterior = blue; inferior/anterior = green; medial = yellow; lateral = orange. The posterior margin has a glistening surface without any attached muscle. Axillary Tail: Absent. Slices: Serial coronal sectioning of the specimen is consecutively numbered #1 to #15, from superior to inferior. Lesions: Description: Uncapsulated white-paulson enduration with associated hemorrhagic biopsy cavity. Size: 2.2 cm from superior to inferior, 1.8 cm from lateral to medial, 1.0 cm from anterior to posterior. Slice Involved: Slice 3 through slice 6, outer upper quadrant. Distance to Margins: 0.2 cm to posterior, 0.2 cm to lateral, 1.0 cm to the superior anterior, 2.3 cm to the inferior anterior, and 3.0 cm to the nipple/skin. Other: The uninvolved breast parenchyma has a fatty to fibrous tissue ratio of approximately 50:50. No additional lesions are present. . Placement Director sections are submitted as follows: Sample Cassette Code: C1 - Entirely trisected nipple and sales representative wire rope sections of skin, four pieces. C2 - Placement Director sections of areolar complex, perpendicular, four pieces. C3 - Slice 2, sales representative wire rope, no tumor, superior to lesion, one piece. C4 - Slice 3, lesion to close posterior, lateral and superior/anterior margins, one piece. C5 - Slice 4, lesion to close posterior and lateral margins, one piece. C6 - Slice 5, lesion to the closest posterior and lateral margins, one piece. C7 - Slice 6, lesion to the close superior/anterior margin, one piece. C8 - Slice 6, lesion to the close posterior margin, mirror image of slice in cassette C7, one piece. C9 - Slice 7, sales representative wire rope, no tumor, inferior to lesion, one piece. C10 - Lower outer quadrant, two pieces. C11 - Lower inner quadrant, two pieces. C12 - Upper inner quadrant, two pieces. . Fixation time: The specimen was placed in formalin at 2:30 p.m. on 11/02/2019 for a total fixation time of 33 hours and 30 minutes. ([id number]) ([id number]) /[facility] 11/04/2019 1705 Local . 02 Microscopic: . . . 02 Pathologist provided ICD-10: C50.912 . 02 CPT . 456221, 178235, [id number], [id number] Performed at: 01 [facility] [address] [facility], [place], [place] [id number] MD Magdi Verduzco MD Phone: [phone] Performed at: 02 [facility] [place] [facility] [address] [place] [id number] MD Kayla Dooley MD Phone: [phone]
--- NOTE | 2019-11-02 07:55 | DI.NM.S_ITS ---
PROCEDURE: NM SENTINEL NODE W IMAGING RADIOPHARMACEUTICAL: 0.5-1.0 mCi Millipore filtered Tc-99m sulfur colloid. INDICATIONS: right breast/axilla sentinel node mapping TECHNIQUE: The area around the nipple was prepped and draped in a sterile fashion. Tc-99m sulfur colloid was injected intra-dermally in the outer edge of the areola in the right breast. Images were obtained subsequently. A body contour outline was obtained. FINDINGS: There is a single sentinel lymph node in the ipsilateral axilla is identified. IMPRESSION: Administration of radiotracer into the right breast periareolar region for intra-operative sentinel lymph node localization. Dictated by: Mariusz Fong M.D. on 11/02/2019 at 10:24 Approved by: Mariusz Fong M.D. on 11/02/2019 at 10:29
[2019-11-02] MEDS: LACTATED RINGERS 1,000 ML 42 ML IV ×2 (08:33→12:08)
--- NOTE | 2019-11-02 10:07 | PM.PREOP ---
Pre-operative Note COVID-19 COVID-19 status: Negative Result date/Date tested (Pos, Neg/Pending): 10/30/19 Interval Note History & Physical reviewed/Exam performed by Physician: Yes Changes to H&P: No
[2019-11-02] MEDS: VANCOMYCIN 1,500 MG/300 ML FROZ.PIGGY 200 MG IV (10:25)
--- NOTE | 2019-11-02 10:57 | SUR.OPER ---
Supine on padded OR bed, head on pillow, arms secured on padded arm boards at <90 degrees abduction, legs uncrossed, safety belt at thigh, tape over blanket over lower legs.
[2019-11-02] MEDS: BUPIVACAINE 0.25% W/ EPI 30 ML VIAL INJ (11:22)
[2019-11-02] MEDS: HEPARIN 5,000 UNIT, SODIUM CHLORIDE 0.9% 50 ML IV (11:23)
[2019-11-02] MEDS: BUPIVACAINE LIPOSOME 266 MG/20 ML VIAL INJ (12:38)
--- NOTE | 2019-11-02 13:42 | P.OP_ITS ---
Operative Date/Time/Diagnoses Date of procedure: 11/02/19 Time of procedure: 13:42 Pre-op diagnosis: left breast cancer s/p mastectomy, right breast ductal hyperplasia Post-op diagnosis: same Procedure & Clinicians Procedure: Left breast re-excision of mastectomy for margin; right skin sparing mastectomy, right axillary sentinel node biopsy, Right portacath IJ approach Same procedure as scheduled: Yes Surgeon: Maryse Sarah Anesthesia Type: General (with LMA) Operative Notes Findings: Normal appearing fat tissue in left lateral chest wall. Normal appearing breast tissue in right breast. Elongated abnormal appearing lymph node from right axilla. Good position of portacath at cavoatrial junction with good blood return. Specimen(s): other (left chest wall mastectomy margin, right mastectomy, right axillary sentinel node ) Prosthetic devices, grafts, tissues, transplants, or devices: ALEXANDR drain right breast Estimated Blood Loss (mL): 5 Blood products transfused: none Procedure in detail: The patient was brought into the OR and placed supine on the OR table. Sequential compression devices were placed on both legs and turned on. General anesthesia was induced and the patient was intubated with an LMA. Appropriate perioperative antibiotics were given. The left and right chest and axilla were prepped and draped in sterile fashion. Surgical time out was performed. Local anesthetic was infiltrated into the skin in the area of the prior left mastectomy incision. A 4 cm transverse incision was made in the prior mastectomy incisional scar. Dissection was carried down to the posterior lateral aspect of the mastectomy wound. A 1cm x 2cm section of fat tissue was dissected out of the posterior lateral margin of the prior mastectomy site. The specimen was passed off the field and labeled as posterior lateral margin. Hemostasis was achieved using cautery. There was no active bleeding and the wound was clean. The skin and subcutnaeous tissue were closed with 3-0 Vicryl and 4-0 Monocryl, and sealed with dermabond. Attention was then turned to the right chest and axilla. The gamma probe was then used to identify a hot spot in the right axilla. Local anesthetic was infiltrated in the skin in an appropriate skin crease at the border of the axilla. A 15 blade was then used to make a 4cm curvilinear incision in the skin at this site. Dissection was carried down to through subcutaneous fat using cautery. The clavipectoral fascia was identified and opened. A small lymph node was identified using the gamma probe, and was removed. Gamma count for the node was 1708. Gamma count of the axilla after removal of the node was 125. It appeared abnormal and elongated. The removed node was bilvalved on the new effington stand to confirm it was a lymph node. The appearance of the specimen was consistent with lymph node tissue. The specimen was passed off the table for pathology. Hemostasis was achieved in the axilla with cautery. I then tucked a Raytec in the axilla and attention was then turned to the breast. Local anesthetic was infiltrated into the skin of the right breast in the area of the planned periareaolar modified eliptical incision. A 10 cm transverse modified eliptical incision was made at that site for skin sparing mastectomy. Dissection was carried along the junction of the breast tissue and the subcutaneous fat up to the clavical superiorly, the inframammary fold inferiorly, the sternal midline medially. I then dissected the breast tissue off of the pectoral muscle, taking the pectoral fascia from medial to lateral. Once we reached the lateral border of the pectoral muscle, the tail of Ordonez was dissected superiorly until the entire breast was free. It was then delivered from the wound and marked with short stitch superior and long stitch lateral. The nipple areolar complex identifies the anterior surface, and the pectoral fascia identifies the deep surface. Hemostasis was achieved using cautery. There was no active bleeding and the wound was clean. A 10French flat drain was placed in the wound across the pectoral muscle, exiting the left lateral border of the wound at the inframammary fold. Local anesthetic was infiltrated in both wounds using the remaining 0.25% Marcaine with epi for a total of 60mL, and Exparel for a total of 20 mL. The drain was secured in place with a 3-0 Nylon suture in the skin. 3-0 Vicryl suture was used to close the dermis of the breast incision and the axillary incision after removing the Raytec from the axilla. 4-0 Monocryl was used to close the skin with a subcuticular running suture. The skin of the axilla was then sealed with dermabond. The breast incision was covered with steri strips, and a 10cm Telfa secured in place with two Tegaderms. The ALEXANDR drain was dressed with 4x4 gauze and secured with Tegaderm. The patient was then positioned for portacath placement. The arms were tucked at his sides. A roll was placed between her shoulders. The neck and chest were prepped and draped in the usual fashion. The patient was positioned in Trendelenburg, and local anesthetic was infiltrated beneath the skin overlying the right IJ. The right neck was examined with ultrasound, and an appropriate position on the internal jugular vein was identified. The right IJ was accessed with a large-bore needle and syringe using simultaneous ultrasound guidance. Dark blood returned indicating venous access, and the guidewire was passed through the needle. Fluoroscopy was used to identify the position of the guidewire, which appeared appropriate. A 3 cm transverse incision was then made in the skin on the right chest wall and a 2 cm x 2 cm pocket was created inferior to the incision. The port was put together and flushed with heparinized saline. It was positioned in the pocket, and the tunneler was used to tunnel the catheter up to the jugular vein. A skin incision was made over top of the guide wire, and the dilator and introducer sheath were passed over the wire using fluoro guidance. The wire and dilator were then removed and the sheath was left in place. The catheter was cut to the appropriate length after evaluating its length using fluoro with the catheter position on the patient's chest. Once it was tapered to appropriate length the catheter was passed through the introducer and then the sheath was peeled away. Again using fluoro guidance, the catheter tip appeared to be in good position within the superior vena cava at the cavoatrial junction. The port was fixed to the chest wall using 3 0 vicryl suture. The skin was closed with 3 0 Vicryl and 4 0 Monocryl, and the skin incisions were sealed with Dermabond. The Port-A-Cath was accessed through the skin using a Saini needle and was found to flush well and draw back blood. It was flushed with 5cc of heparinized saline. This concluded the procedure and the patient was awakened from anesthesia and transferred to the postanesthesia care unit in stable condition. Needle sponge and instrument counts were correct x2 at the end of the case. The patient tolerated the procedure well and was transferred to the PACU in stable condition. In the PACU a follow-up chest x-ray was done which showed no pneumothorax and good positioning of the catheter. Complications: none Post-operative Condition: stable Disposition: PACU Plan for aftercare: Transfer to acute care for observation and pain management after post op recovery.
[2019-11-02] MEDS: fentaNYL 100 MCG/2 ML INJ IV ×3 (14:01→14:20)
--- NOTE | 2019-11-02 15:18 | PC.NURSE ---
Postop Note Pt arrived to rm 226 at 1505. Pt alert and oriented x3. Reports pain to right chest 5/10, ice pack in place. Oriented to room and to call light/bed/tv controls. 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 Skin glue to left chest is intact, dressing to right chest C/D/I, ALEXANDR drain compressed and patent. Skin glue to upper right chest intact. Up to BSC to void, 1 person assist, slightly unsteady on feet, mild dizziness reported with standing. Call light within reach, bed alarm on.
[2019-11-02] MEDS: HYDROMORPHONE 0.5 MG INJ IV ×2 (15:36→20:02)
[2019-11-02] MEDS: DOCUSATE 100 MG CAPSULE PO (21:14)
[2019-11-02] MEDS: HYDROCODONE/ACET 10/325 TABLET 1 TAB PO (21:14)
[2019-11-03] VITALS: BP 103/55; PULSE 76; RESP 16; TEMP 36.3; O2SAT 93
[2019-11-03] MEDS: HYDROCODONE/ACET 10/325 TABLET 1 TAB PO ×2 (02:54→09:19)
[2019-11-03 04:49] VITALS: BP 108/60; PULSE 76; RESP 16; TEMP 37; O2SAT 95
[2019-11-03 07:25] VITALS: BP 112/58; PULSE 66; RESP 16; TEMP 36.5; O2SAT 96
--- NOTE | 2019-11-03 10:57 | PC.NURSE ---
Pt dc'd to home per MD order. Pt given d/c packet and educational material. Coordinator RN performed d/c teaching with pt. Pt requested to shower before leaving. Incision was covered and pt was able to perform her own hygiene and dress herself. PIV was removed by coordinator with cath tip intact. Pt states she feels comfortably with her ALEXANDR drain as she has prior experience after a left mastectomy. Pt reports pain being well controlled with rx. Pt stood, walked to w/c independently with all belongings for d/c home. TUBE KNITTER escorted pt at 1055 to exit in no distress.
--- NOTE | 2019-11-03 14:03 | CM.IDA ---
Initial DCP Assessment Note: Patient is a 58 yo female, resident of [place]. Patient was post operative day one from a left masectomy, discharged home w/friends and family today No SW needs identified, cleared by Dr Sarah and RN for safe DC home w/close outpt f/u JW
== END 2019-11-03 10:55 | disposition home or self-care (01) ==
LOC: OR 12:13 → ICU 12:13
PROVIDERS: Admitting Provider Surgery; PCP Internal Medicine; Referring Provider Surgery; Visit Provider Surgery
PROC: (CPT 19303; principal; 2019-11-02 10:45)
PROC: (CPT 19303; 2019-11-02 10:45)
DX: C50.412 Malignant neoplasm of upper-outer quadrant of left female breast (principal); Z17.0 Estrogen receptor positive status [ER+]; Z45.2 Encounter for adjustment and management of vascular access device; F17.210 Nicotine dependence, cigarettes, uncomplicated
CPT/HCPCS: 19303; 36561; 38525; 19301; 71045; 76000; 78195; 87797; A9541; C1788; G0378; C9290; J1100; J1170; J1644; J2405; J2704; J3010

== ENCOUNTER → 2019-11-28 15:10 | Outpatient (CLI) | payer OTHER, SELFPAY ==
[2019-11-02 15:09] VITALS: BMI 21.4
== END ==
PROVIDERS: PCP Internal Medicine; Referring Provider Internal Medicine; Visit Provider Internal Medicine
DX: M81.0 Age-related osteoporosis without current pathological fracture (principal); C50.412 Malignant neoplasm of upper-outer quadrant of left female breast; Z17.0 Estrogen receptor positive status [ER+]
CPT/HCPCS: 77080

== ENCOUNTER → 2020-05-15 08:57 | Outpatient (CLI) | payer OTHER, MEDICAID, SELFPAY ==
[2019-11-02 15:09] VITALS: BMI 21.4
[2020-05-15 10:55] LABS: COVID19 -Nasal RAPID Negative (Negative)
== END ==
PROVIDERS: PCP Internal Medicine; Visit Provider Surgery
DX: Z20.828 Contact with and (suspected) exposure to other viral communicable diseases (principal)
CPT/HCPCS: 87635; C9803

== ENCOUNTER 2020-05-15 10:30 | Outpatient (RCR) | payer OTHER, MEDICAID, SELFPAY ==
[2019-11-02 15:09] VITALS: BMI 21.4
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
--- NOTE | 2020-04-18 13:17 | PT.OPPOC ---
Physical, Occupational & Speech Therapy At [facility] Current Diagnoses Malignant neoplasm of upper-outer quadrant of left female breast (04/18/20) Estrogen receptor positive status [ER+] (04/18/20) Visit Care Team Role Provider Type Jose Ann MD Primary Care Provider Physician Specialty: Internal Medicine Address: [address] [place] [address], [address], [place], [address] Email: [email or web address] Dae Rojas MD Attending Provider Physician Referring Provider Specialty: Oncology Address: [facility] [place] [address], [place], [address] Email: Plan Of Care PT-OP-T Assessment and Plan Start: 04/17/20 12:50 Freq: Status: Active Protocol: Document 04/18/20 08:11 [facility] (Rec: 04/18/20 10:57 [facility] [id number]) Physical Therapy Assessment Rehab Potential Rehabilitation Potential Good Evaluation Complexity Number of Personal Factors/Comorbidities 1-2 Number of Body Systems Impaired 3 Clinical Presentation at Evaluation Evolving Impairments Impairments Functional Activities,Posture, ROM,Strength Goals Three Impairment postural dysfunction, signs and symptoms of impingment right shoulder Short Term Goal (STG) educate in neutral postural alignment and postural correction exercises STG Duration 05/16/20 Eastern Philosophy Professor Goal (LTG) Patient able to demonstrate neutral postural alignment and negative impingment tests and no impingment with usual UE tasks. LTG Duration 07/18/19 Two Impairment weakness bilateral UE's Short Term Goal (STG) Patient will tolerate gently progressive strengthening program for bilateral UE's STG Duration 05/16/20 Prison Goal (LTG) Patient will demonstrate 5/5 muscle strength bilateral UE's and be able to perform all usual activities in the home and at work. LTG Duration 07/18/19 One Impairment decreased shoulder ROM Short Term Goal (STG) Patient will be instructed in HEP for ROM bilateral shoulders STG Duration 05/16/20 Prison Goal (LTG) Patient will improve bilateral shoulder ROM to allow her to reach fully overhead and behind her back for purposes of ADL's and all usual activities in the home and at work. LTG Duration 3/2/20 Assessment Summary Assessment Patient presents to PT with function-limiting pain, soft tissue tightness and weakness bilateral shoulders. She is right-hand dominant and her right shoulder has signs and symptoms consistent with impingement with rotator cuff irritation with significant strength limitations right. She has soft tissue tightness throughout her left subaxillary area and lateral thorax. No signs or symptoms of lymphedema but she was educated in precautions and issued educational information regarding lymphedema prevention and precautions. She was also instructed in a gentle therapeutic exercise program and issued written instructions. 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 Physical Therapy Plan Frequency and Duration Frequency of Treatment 2x/Week Duration of Treatment 12 weeks Plan of Care Start Date 04/18/20 Plan of Care End Date 07/17/20 Therapeutic Interventions Therapeutic Interventions Home Exercise Program,Manual Therapy,Patient/Caregiver Education,Self-Care/Home Management,Soft Tissue Mobilization,Taping, Therapeutic Activities, Therapeutic Exercises Next Visit Focus/Plan Next Note Type Treatment Note Next Visit Plan Review HEP, gentle ther ex progression as tolerated for UE flexibility and strengthening, postural correction, deep breathing. Plan of Care Dates Plan of Care Start Date 04/18/20 Plan of Care End Date 07/17/20 Electronically Signed by: Rose Christian, PT 04/18/20 9054 Please Sign and Return: I have reviewed this Plan of Care and certify that the skilled therapy services above are required to meet the patient?s needs. Physician Signature Date Printed Name and Credentials Clinical Instructor Signature Printed Name and Credentials
--- NOTE | 2020-04-24 15:12 | PT.OTN ---
Current Diagnoses Malignant neoplasm of upper-outer quadrant of left female breast (04/24/20) Estrogen receptor positive status [ER+] (04/24/20) Physical Therapy Treatment Note PT-OP-A Visit Information Start: 04/17/20 12:50 Freq: Status: Active Protocol: Document 04/24/20 08:14 [facility] (Rec: 04/24/20 08:42 [facility] [id number]) Out-Patient Physical Therapy Visit Information Visit Information Visit Type Treatment Note Visit Note Rough day yesterday due to medications, better today. Compliant to HEP. Visit Start Time 08:15 Visit Stop Time 09:00 Total Visit Minutes 45 Visit Number 2 Number of RETAIL AND RESTAURANT ASSOCIATE Visits 0 PT-OP-B Current Condition Start: 04/17/20 12:50 Freq: Status: Active Protocol: Document 04/18/20 08:11 [facility]AK (Rec: 04/18/20 08:39 [facility] [id number]) Current Condition History of Current Condition Onset Date 09/30/19 Current Complaints pain and weakness History of Current Condition On 09/30/2019,she underwent bilateral skin sparing mastectomy and left axillary sentinel node biopsy due to diagnosis of breast cancer, followed by chemotherapy, 30 treatments of radiation. She received adjuvant radiation therapy from 02/14/2020 to 03/26. At this time is c/o pain bilateral pain bilateral shoulders right greater than left and chest left greater than right. Also c/o stiffness and weakness throughout especially in bilateral UE's. Continues with oral medication, Hydrocodone for pain. 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 Wants to improve ROM and strength, return to prior level of function. Trying to walk 1 mile per day when possible. Energy level low but some improved. Has plans for reconstruction 1 year out from radiation. 5 lymph nodes removed left, 2 right. Unable to reach overhead, and behind her back without pain. Future Testing and Treatments Planned Next appointment with Dr. Hull July 12. 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 Functional Limitations- Work/School unable to work PT-OP-C Subjective Start: 04/17/20 12:50 Freq: Status: Active Protocol: Document 04/18/20 08:11 [facility] (Rec: 04/18/20 10:28 [facility] [id number]) OP-PT Pain Assessment Pain Assessment Grid Paper Pain Assessment Grid Completed Yes Location bilateral shoulders Pain Location Details RC insertion right shoulder, subaxillary region left shoulder Intensity 4 Description Aching,Pressure,Stabbing Frequency Frequent Pain Aggravating Factors Activity Pain Alleviating Factors Inactivity,Lying Supine PT-OP-J Posture/Palpation/Skin Start: 04/17/20 12:50 Freq: Status: Active Protocol: Document 04/18/20 08:11 [facility] (Rec: 04/18/20 10:28 [facility] [id number]) Posture Evaluation Position Sitting Head/C-Spine Posture C-Spine Flattened T-Spine Posture Increased Kyphosis Shoulder Posture (L) Rounded,(R) Rounded Scapula Posture (L) Protracted,(R) Protracted Palpation Assessment Location subaxillary Palpation Details no palpable axillary cording Skin Assessment Incisional Assessment Incision Appearance/Comments well healed incisions, no warmth Other Assessments Skin Assessment Comments No edema noted. Mild skin changes from radiation left lateral chest and breast, skin dry and with decreased mobility. PT-OP-K Range of Motion Start: 04/17/20 12:50 Freq: Status: Active Protocol: Document 04/18/20 08:11 [facility] (Rec: 04/18/20 10:28 [facility] [id number]) Cervical Spine Range of Motion Cervical Spine Active ROM Limitations Soft Tissue Tightness Comments mild decrease all motions. Shoulder Goniometric Range of Motion Shoulder Left Flexion 150 Extension 30 Abduction 140 Internal Rotation Behind Back (text) L4 Right Flexion 150 Extension 25 Abduction 145 Internal Rotation Behind Back (text) superior buttock Shoulder ROM Limitations Shoulder ROM Limitations Soft Tissue Tightness,Pain PT-OP-L Special Tests Start: 04/17/20 12:50 Freq: Status: Active Protocol: Document 04/18/20 08:11 [facility] (Rec: 04/18/20 10:28 [facility] [id number]) Special Tests Shoulder Special Tests Elevation Impingement Test Results positive right PT-OP-M Strength Start: 04/17/20 12:50 Freq: Status: Active Protocol: Document 04/18/20 08:11 [facility] (Rec: 04/18/20 10:28 [facility] [id number]) Shoulder Strength Shoulder Manual Muscle Testing Right Flexion 3+ Fair+ Extension 4- Good- Abduction (C5) 3+ Fair+ External Rotation 3 Fair Internal Rotation 3+ Fair+ Left Flexion 4- Good- Extension 4- Good- Abduction (C5) 4- Good- External Rotation 4- Good- Internal Rotation 4- Good- PT-OP-N Lymphedema Start: 04/17/20 12:50 Freq: Status: Active Protocol: Document 04/18/20 08:11 [facility] (Rec: 04/18/20 10:28 [facility] [id number]) Lymphedema Measurements Upper Extremity Circumference Measurements left UE - no signs or symptoms of lymphedema right UE - no signs or symptoms of lymphedema PT-OP-Q Treatments Start: 04/17/20 12:50 Freq: Status: Active Protocol: Document 04/24/20 08:14 [facility] (Rec: 04/24/20 08:42 [facility] [id number]) Therapeutic Exercises Supine Exercises abdominal breathing Reps/Minutes 5x pec stretch Reps/Minutes 2x30 shoulder flfex Reps/Minutes 10x Comments end-range stretch chest press Reps/Minutes 10x Sidelying Exercises shoulder abduction Reps/Minutes 5x Comments end range stretch with deep breath open book Reps/Minutes 5x Comments gentle, segmental, end-range stretch with deep breath Sitting Exercises pulleys Sitting Exercise Name flex and abduction Reps/Minutes 10 ea Comments end range stretches with deep breathing Standing Exercises row Resistance L1 TB Reps/Minutes 10x Manual Therapy Treatment Soft Tissue Mobilization 1 Body Location upper traps, levator scap Mobilization Type Myofascial Release,Strumming Intensity/Depth gentle Body Position Supine Comments also rhomboids sidelying Joint Mobilizations scapular mob Direction med, lat, sup, inf Grade II Self-Care/Home Management Treatment Education Patient Education Home Exercise Program Other Education updaged HEP PT-OP-T Assessment and Plan Start: 04/17/20 12:50 Freq: Status: Active Protocol: Document 04/24/20 08:14 [facility] (Rec: 04/24/20 08:42 [facility] [id number]) Physical Therapy Assessment Goals Three Impairment postural dysfunction, signs and symptoms of impingment right shoulder Short Term Goal (STG) educate in neutral postural alignment and postural correction exercises STG Duration 05/16/20 Care Home Goal (LTG) Patient able to demonstrate neutral postural alignment and negative impingment tests and no impingment with usual UE tasks. LTG Duration 07/18/19 Two Impairment weakness bilateral UE's Short Term Goal (STG) Patient will tolerate gently progressive strengthening program for bilateral UE's STG Duration 05/16/20 Care Home Goal (LTG) Patient will demonstrate 5/5 muscle strength bilateral UE's and be able to perform all usual activities in the home and at work. LTG Duration 07/18/19 One Impairment decreased shoulder ROM Short Term Goal (STG) Patient will be instructed in HEP for ROM bilateral shoulders STG Duration 05/16/20 Progressive Care Unit Registered Nurse Goal (LTG) Patient will improve bilateral shoulder ROM to allow her to reach fully overhead and behind her back for purposes of ADL's and all usual activities in the home and at work. LTG Duration 07/18/19 Assessment Summary Assessment verbal and manual cues required for all ther ex to slow down, perform deep breaths at end-range of stretches, perform open book segmentally. Tolerated all well without c/o pain, only stretch. Demonstrated good understanding of HEP. Able to add row with L1 TB. Physical Therapy Plan Frequency and Duration Frequency of Treatment 2x/Week Duration of Treatment 12 weeks Plan of Care Start Date 04/18/20 Plan of Care End Date 07/17/20 Therapeutic Interventions Therapeutic Interventions Home Exercise Program,Manual Therapy,Patient/Caregiver Education,Self-Care/Home Management,Soft Tissue Mobilization,Taping, Therapeutic Activities, Therapeutic Exercises Next Visit Focus/Plan Next Note Type Treatment Note Next Visit Plan Continue gentle ther ex progression as tolerated for UE flexibility and strengthening, postural correction, deep breathing.
--- NOTE | 2020-04-26 13:08 | PT-OP ANOTE ---
cancelled due to adverse drug reaction
--- NOTE | 2020-04-30 14:00 | PT-OP ANOTE ---
cancelled due to inability to leave her mother alone (is mother's caregiver). Brother not feeling well enough to spell her.
--- NOTE | 2020-05-02 15:25 | PT.OTN ---
Current Diagnoses Malignant neoplasm of upper-outer quadrant of left female breast (05/02/20) Estrogen receptor positive status [ER+] (05/02/20) Physical Therapy Treatment Note PT-OP-A Visit Information Start: 04/17/20 12:50 Freq: Status: Active Protocol: Document 05/02/20 14:31 SAK (Rec: 05/02/20 15:25 SAK [id number]) Out-Patient Physical Therapy Visit Information Visit Information Visit Type Treatment Note Visit Start Time 14:30 Visit Stop Time 15:13 Total Visit Minutes 43 Visit Number 3 Number of WILDLIFE CONSERVATION OFFICER Visits 0 Evaluation Information Evaluation Date 04/18/20 PT-OP-B Current Condition Start: 04/17/20 12:50 Freq: Status: Active Protocol: Document 04/18/20 08:11 SAK (Rec: 04/18/20 08:39 SAK [id number]) Current Condition History of Current Condition Onset Date 09/30/19 Current Complaints pain and weakness History of Current Condition On 09/30/2019,she underwent bilateral skin sparing mastectomy and left axillary sentinel node biopsy due to diagnosis of breast cancer, followed by chemotherapy, 30 treatments of radiation. She received adjuvant radiation therapy from 02/14/2020 to 03/26. At this time is c/o pain bilateral pain bilateral shoulders right greater than left and chest left greater than right. Also c/o stiffness and weakness throughout especially in bilateral UE's. Continues with oral medication, Hydrocodone for pain. 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 Wants to improve ROM and strength, return to prior level of function. Trying to walk 1 mile per day when possible. Energy level low but some improved. Has plans for reconstruction 1 year out from radiation. 5 lymph nodes removed left, 2 right. Unable to reach overhead, and behind her back without pain. Future Testing and Treatments Planned Next appointment with Dr. Hull July 12. 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 Functional Limitations- Work/School unable to work PT-OP-C Subjective Start: 04/17/20 12:50 Freq: Status: Active Protocol: Document 05/02/20 14:31 SAK (Rec: 05/02/20 15:25 [facility] [id number]) OP-PT Subjective Patient Comments Patient Comments Some soreness with exercises: I can't believe how tight I am. Having port removed . PT-OP-J Posture/Palpation/Skin Start: 04/17/20 12:50 Freq: Status: Active Protocol: Document 04/18/20 08:11 [facility] (Rec: 04/18/20 10:28 [facility] [id number]) Posture Evaluation Position Sitting Head/C-Spine Posture C-Spine Flattened T-Spine Posture Increased Kyphosis Shoulder Posture (L) Rounded,(R) Rounded Scapula Posture (L) Protracted,(R) Protracted Palpation Assessment Location subaxillary Palpation Details no palpable axillary cording Skin Assessment Incisional Assessment Incision Appearance/Comments well healed incisions, no warmth Other Assessments Skin Assessment Comments No edema noted. Mild skin changes from radiation left lateral chest and breast, skin dry and with decreased mobility. PT-OP-K Range of Motion Start: 04/17/20 12:50 Freq: Status: Active Protocol: Document 04/18/20 08:11 [facility] (Rec: 04/18/20 10:28 [facility] [id number]) Cervical Spine Range of Motion Cervical Spine Active ROM Limitations Soft Tissue Tightness Comments mild decrease all motions. Shoulder Goniometric Range of Motion Shoulder Left Flexion 150 Extension 30 Abduction 140 Internal Rotation Behind Back (text) L4 Right Flexion 150 Extension 25 Abduction 145 Internal Rotation Behind Back (text) superior buttock Shoulder ROM Limitations Shoulder ROM Limitations Soft Tissue Tightness,Pain PT-OP-L Special Tests Start: 04/17/20 12:50 Freq: Status: Active Protocol: Document 04/18/20 08:11 SAK (Rec: 04/18/20 10:28 [facility] [id number]) Special Tests Shoulder Special Tests Elevation Impingement Test Results positive right PT-OP-M Strength Start: 04/17/20 12:50 Freq: Status: Active Protocol: Document 04/18/20 08:11 SAK (Rec: 04/18/20 10:28 [facility] [id number]) Shoulder Strength Shoulder Manual Muscle Testing Right Flexion 3+ Fair+ Extension 4- Good- Abduction (C5) 3+ Fair+ External Rotation 3 Fair Internal Rotation 3+ Fair+ Left Flexion 4- Good- Extension 4- Good- Abduction (C5) 4- Good- External Rotation 4- Good- Internal Rotation 4- Good- PT-OP-N Lymphedema Start: 04/17/20 12:50 Freq: Status: Active Protocol: Document 04/18/20 08:11 SAK (Rec: 04/18/20 10:28 [facility] [id number]) Lymphedema Measurements Upper Extremity Circumference Measurements left UE - no signs or symptoms of lymphedema right UE - no signs or symptoms of lymphedema PT-OP-Q Treatments Start: 04/17/20 12:50 Freq: Status: Active Protocol: Document 05/02/20 14:31 [facility] (Rec: 05/02/20 15:25 [facility] [id number]) Therapeutic Exercises Supine Exercises pec stretch Reps/Minutes 2x30 Comments passive Sidelying Exercises shoulder abduction Reps/Minutes 5x Comments upward rotation open book Reps/Minutes 5x Comments gentle, segmental, end-range stretch with deep breath Sitting Exercises UT stretch Sitting Exercise Name 2x30 Comments hand under bottom pulleys Sitting Exercise Name flex and abduction Reps/Minutes 10 ea Comments end range stretches with deep breathing Standing Exercises ER Resistance L1 Reps/Minutes 10x shoulder ext Resistance L1 Reps/Minutes 10x row Resistance L1 TB Reps/Minutes 10x Manual Therapy Treatment Soft Tissue Mobilization 1 Body Location upper traps, levator scap, pec Mobilization Type Myofascial Release,Strumming Intensity/Depth gentle Body Position Supine Comments also rhomboids sidelying Joint Mobilizations scapular mob Direction med, lat, sup, inf Grade II Self-Care/Home Management Treatment Education Other Education avoid impingement symtoms PT-OP-T Assessment and Plan Start: 04/17/20 12:50 Freq: Status: Active Protocol: Document 05/02/20 14:31 [facility] (Rec: 05/02/20 15:25 [facility] [id number]) Physical Therapy Assessment Goals Three Impairment postural dysfunction, signs and symptoms of impingment right shoulder Short Term Goal (STG) educate in neutral postural alignment and postural correction exercises STG Duration 05/16/20 Mcfp Goal (LTG) Patient able to demonstrate neutral postural alignment and negative impingment tests and no impingment with usual UE tasks. LTG Duration 07/18/19 Two Impairment weakness bilateral UE's Short Term Goal (STG) Patient will tolerate gently progressive strengthening program for bilateral UE's STG Duration 05/16/20 Mcfp Goal (LTG) Patient will demonstrate 5/5 muscle strength bilateral UE's and be able to perform all usual activities in the home and at work. LTG Duration 07/18/19 One Impairment decreased shoulder ROM Short Term Goal (STG) Patient will be instructed in HEP for ROM bilateral shoulders STG Duration 05/16/20 Erosion Control Coordinator Goal (LTG) Patient will improve bilateral shoulder ROM to allow her to reach fully overhead and behind her back for purposes of ADL's and all usual activities in the home and at work. LTG Duration 07/18/19 Assessment Summary Assessment Patient ROM improving, compliant to HEP. Cautioned to not push too hard, avoid impingement symptoms. Patient had prior RCR surgery so demonstrated good understanding of need to avoid impingment. Physical Therapy Plan Frequency and Duration Frequency of Treatment 2x/Week Duration of Treatment 12 weeks Plan of Care Start Date 04/18/20 Plan of Care End Date 07/17/20 Therapeutic Interventions Therapeutic Interventions Home Exercise Program,Manual Therapy,Patient/Caregiver Education,Self-Care/Home Management,Soft Tissue Mobilization,Taping, Therapeutic Activities, Therapeutic Exercises Next Visit Focus/Plan Next Note Type Treatment Note Next Visit Plan Continue gentle ther ex progression as tolerated for UE flexibility and strengthening, postural correction, deep breathing. Continue gentle MFR. Avoid signs or symptoms of impingement.
--- NOTE | 2020-05-08 16:35 | PT.OTN ---
Current Diagnoses Malignant neoplasm of upper-outer quadrant of left female breast (05/08/20) Estrogen receptor positive status [ER+] (05/08/20) Physical Therapy Treatment Note PT-OP-A Visit Information Start: 04/17/20 12:50 Freq: Status: Active Protocol: Document 05/08/20 14:33 SAK (Rec: 05/08/20 15:16 SAK [id number]) Out-Patient Physical Therapy Visit Information Visit Information Visit Type Treatment Note Visit Start Time 14:32 Visit Stop Time 15:15 Total Visit Minutes 43 Visit Number 4 Number of FIELD ASSISTANT Visits 0 PT-OP-B Current Condition Start: 04/17/20 12:50 Freq: Status: Active Protocol: Document 04/18/20 08:11 SAK (Rec: 04/18/20 08:39 SAK [id number]) Current Condition History of Current Condition Onset Date 09/30/19 Current Complaints pain and weakness History of Current Condition On 09/30/2019,she underwent bilateral skin sparing mastectomy and left axillary sentinel node biopsy due to diagnosis of breast cancer, followed by chemotherapy, 30 treatments of radiation. She received adjuvant radiation therapy from 02/14/2020 to 03/26. At this time is c/o pain bilateral pain bilateral shoulders right greater than left and chest left greater than right. Also c/o stiffness and weakness throughout especially in bilateral UE's. Continues with oral medication, Hydrocodone for pain. 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 Wants to improve ROM and strength, return to prior level of function. Trying to walk 1 mile per day when possible. Energy level low but some improved. Has plans for reconstruction 1 year out from radiation. 5 lymph nodes removed left, 2 right. Unable to reach overhead, and behind her back without pain. Future Testing and Treatments Planned Next appointment with Dr. Hull July 12. 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 Functional Limitations- Work/School unable to work PT-OP-C Subjective Start: 04/17/20 12:50 Freq: Status: Active Protocol: Document 05/08/20 14:33 [facility] (Rec: 05/08/20 15:16 SAK [id number]) OP-PT Subjective Patient Comments Patient Comments Worst pain is 6/10. Compliant to HEP. PT-OP-J Posture/Palpation/Skin Start: 04/17/20 12:50 Freq: Status: Active Protocol: Document 04/18/20 08:11 [facility] (Rec: 04/18/20 10:28 [facility] [id number]) Posture Evaluation Position Sitting Head/C-Spine Posture C-Spine Flattened T-Spine Posture Increased Kyphosis Shoulder Posture (L) Rounded,(R) Rounded Scapula Posture (L) Protracted,(R) Protracted Palpation Assessment Location subaxillary Palpation Details no palpable axillary cording Skin Assessment Incisional Assessment Incision Appearance/Comments well healed incisions, no warmth Other Assessments Skin Assessment Comments No edema noted. Mild skin changes from radiation left lateral chest and breast, skin dry and with decreased mobility. PT-OP-K Range of Motion Start: 04/17/20 12:50 Freq: Status: Active Protocol: Document 04/18/20 08:11 [facility] (Rec: 04/18/20 10:28 [facility] [id number]) Cervical Spine Range of Motion Cervical Spine Active ROM Limitations Soft Tissue Tightness Comments mild decrease all motions. Shoulder Goniometric Range of Motion Shoulder Left Flexion 150 Extension 30 Abduction 140 Internal Rotation Behind Back (text) L4 Right Flexion 150 Extension 25 Abduction 145 Internal Rotation Behind Back (text) superior buttock Shoulder ROM Limitations Shoulder ROM Limitations Soft Tissue Tightness,Pain PT-OP-L Special Tests Start: 04/17/20 12:50 Freq: Status: Active Protocol: Document 04/18/20 08:11 [facility] (Rec: 04/18/20 10:28 [facility] [id number]) Special Tests Shoulder Special Tests Elevation Impingement Test Results positive right PT-OP-M Strength Start: 04/17/20 12:50 Freq: Status: Active Protocol: Document 04/18/20 08:11 [facility] (Rec: 04/18/20 10:28 [facility] [id number]) Shoulder Strength Shoulder Manual Muscle Testing Right Flexion 3+ Fair+ Extension 4- Good- Abduction (C5) 3+ Fair+ External Rotation 3 Fair Internal Rotation 3+ Fair+ Left Flexion 4- Good- Extension 4- Good- Abduction (C5) 4- Good- External Rotation 4- Good- Internal Rotation 4- Good- PT-OP-N Lymphedema Start: 04/17/20 12:50 Freq: Status: Active Protocol: Document 04/18/20 08:11 SAK (Rec: 04/18/20 10:28 SAK [id number]) Lymphedema Measurements Upper Extremity Circumference Measurements left UE - no signs or symptoms of lymphedema right UE - no signs or symptoms of lymphedema PT-OP-Q Treatments Start: 04/17/20 12:50 Freq: Status: Active Protocol: Document 05/08/20 14:33 SAK (Rec: 05/08/20 15:16 SAK [id number]) Therapeutic Exercises Supine Exercises serratus punch Resistance 2# Reps/Minutes 10x pec stretch Reps/Minutes 2x30 Comments passive shoulder flfex Resistance 2# Reps/Minutes 10x Comments end-range stretch chest press Resistance 2# Reps/Minutes 10x Sidelying Exercises shoulder abduction Reps/Minutes 5x Comments upward rotation open book Reps/Minutes 5x Comments gentle, segmental, end-range stretch with deep breath Sitting Exercises UT stretch Sitting Exercise Name 2x30 Comments hand under bottom pulleys Sitting Exercise Name flex and abduction Reps/Minutes 10 ea Comments end range stretches with deep breathing Standing Exercises ER Resistance L1 Reps/Minutes 10x shoulder ext Resistance L1 Reps/Minutes 10x row Resistance L1 TB Reps/Minutes 10x Manual Therapy Treatment Soft Tissue Mobilization 1 Body Location upper traps, levator scap, pec Mobilization Type Myofascial Release,Strumming Intensity/Depth gentle Body Position Supine Comments also rhomboids sidelying Joint Mobilizations scapular mob Direction med, lat, sup, inf Grade II Self-Care/Home Management Treatment Education Other Education avoid impingement symtoms PT-OP-T Assessment and Plan Start: 04/17/20 12:50 Freq: Status: Active Protocol: Document 05/08/20 14:33 [facility] (Rec: 05/08/20 15:16 SAK [id number]) Physical Therapy Assessment Goals Three Impairment postural dysfunction, signs and symptoms of impingment right shoulder Short Term Goal (STG) educate in neutral postural alignment and postural correction exercises STG Duration 05/16/20 Starch And Prosize Mixer Goal (LTG) Patient able to demonstrate neutral postural alignment and negative impingment tests and no impingment with usual UE tasks. LTG Duration 07/18/19 Two Impairment weakness bilateral UE's Short Term Goal (STG) Patient will tolerate gently progressive strengthening program for bilateral UE's STG Duration 05/16/20 Senior Care Goal (LTG) Patient will demonstrate 5/5 muscle strength bilateral UE's and be able to perform all usual activities in the home and at work. LTG Duration 07/18/19 One Impairment decreased shoulder ROM Short Term Goal (STG) Patient will be instructed in HEP for ROM bilateral shoulders STG Duration 05/16/20 Senior Care Goal (LTG) Patient will improve bilateral shoulder ROM to allow her to reach fully overhead and behind her back for purposes of ADL's and all usual activities in the home and at work. LTG Duration 07/18/19 Assessment Summary Assessment Continues to improve with improvement in ROM, better recognizing impingment symptoms. Complian to HEP. Cues for neutral postural alignment and correct form with ther ex for preveneting impingment symptoms with her exercises and activities. Physical Therapy Plan Frequency and Duration Frequency of Treatment 2x/Week Duration of Treatment 12 weeks Plan of Care Start Date 04/18/20 Plan of Care End Date 07/17/20 Therapeutic Interventions Therapeutic Interventions Home Exercise Program,Manual Therapy,Patient/Caregiver Education,Self-Care/Home Management,Soft Tissue Mobilization,Taping, Therapeutic Activities, Therapeutic Exercises Next Visit Focus/Plan Next Note Type Treatment Note Next Visit Plan Continue gentle ther ex progression as tolerated for UE flexibility and strengthening, postural correction, deep breathing. Continue gentle MFR. Avoid signs or symptoms of impingement.
--- NOTE | 2020-05-15 16:22 | PT.OTN ---
Current Diagnoses Malignant neoplasm of upper-outer quadrant of left female breast (05/15/20) Estrogen receptor positive status [ER+] (05/15/20) Physical Therapy Treatment Note PT-OP-A Visit Information Start: 04/17/20 12:50 Freq: Status: Active Protocol: Document 05/15/20 10:33 SAK (Rec: 05/15/20 10:56 SAK [id number]) Out-Patient Physical Therapy Visit Information Visit Information Visit Type Treatment Note Visit Start Time 10:35 Visit Stop Time 11:20 Total Visit Minutes 45 Visit Number 5 PT-OP-B Current Condition Start: 04/17/20 12:50 Freq: Status: Active Protocol: Document 04/18/20 08:11 SAK (Rec: 04/18/20 08:39 SAK [id number]) Current Condition History of Current Condition Onset Date 09/30/19 Current Complaints pain and weakness History of Current Condition On 09/30/2019,she underwent bilateral skin sparing mastectomy and left axillary sentinel node biopsy due to diagnosis of breast cancer, followed by chemotherapy, 30 treatments of radiation. She received adjuvant radiation therapy from 02/14/2020 to 03/26. At this time is c/o pain bilateral pain bilateral shoulders right greater than left and chest left greater than right. Also c/o stiffness and weakness throughout especially in bilateral UE's. Continues with oral medication, Hydrocodone for pain. 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 Wants to improve ROM and strength, return to prior level of function. Trying to walk 1 mile per day when possible. Energy level low but some improved. Has plans for reconstruction 1 year out from radiation. 5 lymph nodes removed left, 2 right. Unable to reach overhead, and behind her back without pain. Future Testing and Treatments Planned Next appointment with Dr. Hull July 12. Port out on 05/16/20 Treatment Goals Patient/Caregiver Goals Improve ROM and strength and return to prior level of function Prior Functional Status Baseline Function- ADL's Independent Baseline Function- Work/School [employer] at [employer] Baseline Function- Recreation/Hobbies no limitations Current Functional Impairments (Reported) Functional Limitations- ADL's difficulty reaching overhead and behind her back. Functional Limitations- Work/School unable to work PT-OP-C Subjective Start: 04/17/20 12:50 Freq: Status: Active Protocol: Document 05/15/20 10:33 [facility] (Rec: 05/15/20 10:56 [facility] [id number]) OP-PT Subjective Patient Comments Patient Comments Increased pain and spasms on left side over the past few days, no known reason. Hannah was low-bey, minimal stress. Having port removed tomorrow. PT-OP-J Posture/Palpation/Skin Start: 04/17/20 12:50 Freq: Status: Active Protocol: Document 04/18/20 08:11 [facility] (Rec: 04/18/20 10:28 [facility] [id number]) Posture Evaluation Position Sitting Head/C-Spine Posture C-Spine Flattened T-Spine Posture Increased Kyphosis Shoulder Posture (L) Rounded,(R) Rounded Scapula Posture (L) Protracted,(R) Protracted Palpation Assessment Location subaxillary Palpation Details no palpable axillary cording Skin Assessment Incisional Assessment Incision Appearance/Comments well healed incisions, no warmth Other Assessments Skin Assessment Comments No edema noted. Mild skin changes from radiation left lateral chest and breast, skin dry and with decreased mobility. PT-OP-K Range of Motion Start: 04/17/20 12:50 Freq: Status: Active Protocol: Document 04/18/20 08:11 [facility] (Rec: 04/18/20 10:28 [facility] [id number]) Cervical Spine Range of Motion Cervical Spine Active ROM Limitations Soft Tissue Tightness Comments mild decrease all motions. Shoulder Goniometric Range of Motion Shoulder Left Flexion 150 Extension 30 Abduction 140 Internal Rotation Behind Back (text) L4 Right Flexion 150 Extension 25 Abduction 145 Internal Rotation Behind Back (text) superior buttock Shoulder ROM Limitations Shoulder ROM Limitations Soft Tissue Tightness,Pain PT-OP-L Special Tests Start: 04/17/20 12:50 Freq: Status: Active Protocol: Document 04/18/20 08:11 [facility] (Rec: 04/18/20 10:28 [facility] [id number]) Special Tests Shoulder Special Tests Elevation Impingement Test Results positive right PT-OP-M Strength Start: 04/17/20 12:50 Freq: Status: Active Protocol: Document 04/18/20 08:11 [facility]AK (Rec: 04/18/20 10:28 [facility] [id number]) Shoulder Strength Shoulder Manual Muscle Testing Right Flexion 3+ Fair+ Extension 4- Good- Abduction (C5) 3+ Fair+ External Rotation 3 Fair Internal Rotation 3+ Fair+ Left Flexion 4- Good- Extension 4- Good- Abduction (C5) 4- Good- External Rotation 4- Good- Internal Rotation 4- Good- PT-OP-N Lymphedema Start: 04/17/20 12:50 Freq: Status: Active Protocol: Document 04/18/20 08:11 SAK (Rec: 04/18/20 10:28 SAK [id number]) Lymphedema Measurements Upper Extremity Circumference Measurements left UE - no signs or symptoms of lymphedema right UE - no signs or symptoms of lymphedema PT-OP-Q Treatments Start: 04/17/20 12:50 Freq: Status: Active Protocol: Document 05/15/20 10:33 SAK (Rec: 05/15/20 16:22 SAK [id number]) Therapeutic Exercises Supine Exercises UT stretch Reps/Minutes 2x30 Comments passive pec stretch Reps/Minutes 2x30 Comments passive Sitting Exercises UT stretch Sitting Exercise Name 2x30 Comments hand under bottom pulleys Sitting Exercise Name flex and abduction Reps/Minutes 10 ea Comments end range stretches with deep breathing Standing Exercises shoulder extension Equipment Used wand Reps/Minutes 10x5 Manual Therapy Treatment Soft Tissue Mobilization suboccipital release Intensity/Depth Moderate Body Position Hooklying 1 Body Location upper traps, levator scap, pec Mobilization Type Myofascial Release,Strumming Intensity/Depth gentle Body Position Supine Comments also rhomboids sidelying PT-OP-T Assessment and Plan Start: 04/17/20 12:50 Freq: Status: Active Protocol: Document 05/15/20 10:33 [facility] (Rec: 05/15/20 10:56 SAK [id number]) Physical Therapy Assessment Goals Three Impairment postural dysfunction, signs and symptoms of impingment right shoulder Short Term Goal (STG) educate in neutral postural alignment and postural correction exercises STG Duration 05/16/20 Jail Goal (LTG) Patient able to demonstrate neutral postural alignment and negative impingment tests and no impingment with usual UE tasks. LTG Duration 07/18/19 Two Impairment weakness bilateral UE's Short Term Goal (STG) Patient will tolerate gently progressive strengthening program for bilateral UE's STG Duration 05/16/20 Jail Goal (LTG) Patient will demonstrate 5/5 muscle strength bilateral UE's and be able to perform all usual activities in the home and at work. LTG Duration 07/18/19 One Impairment decreased shoulder ROM Short Term Goal (STG) Patient will be instructed in HEP for ROM bilateral shoulders STG Duration 05/16/20 Jail Goal (LTG) Patient will improve bilateral shoulder ROM to allow her to reach fully overhead and behind her back for purposes of ADL's and all usual activities in the home and at work. LTG Duration 07/18/19 Assessment Summary Assessment Increased time spent on manual treatment due to increased pain, some muscle spasms. Patient having port removed tomorrow. Physical Therapy Plan Frequency and Duration Frequency of Treatment 2x/Week Duration of Treatment 12 weeks Plan of Care Start Date 04/18/20 Plan of Care End Date 07/17/20 Therapeutic Interventions Therapeutic Interventions Home Exercise Program,Manual Therapy,Patient/Caregiver Education,Self-Care/Home Management,Soft Tissue Mobilization,Taping, Therapeutic Activities, Therapeutic Exercises Next Visit Focus/Plan Next Note Type Treatment Note Next Visit Plan ASsess response to last treatment as well as port removal. Continue gentle ther ex progression as tolerated for UE flexibility and strengthening, postural correction, deep breathing. Continue gentle MFR. Avoid signs or symptoms of impingement.
--- NOTE | 2020-07-09 10:42 | PT.OPDS ---
Current Diagnoses Malignant neoplasm of upper-outer quadrant of left female breast (05/15/20) Estrogen receptor positive status [ER+] (05/15/20) Visit Care Team Role Provider Type Jose Ann MD Primary Care Provider Physician Specialty: Internal Medicine Address: [address] [place] [address], [address], [address] Email: [email or web address] Rojas MD Attending Provider Physician Referring Provider Specialty: Oncology Address: [address] [place] [address], [id number] Email: Visit Number Visit Number 5 Discharge Summary PT-OP-B Current Condition Start: 04/17/20 12:50 Freq: Status: Active Protocol: Document 04/18/20 08:11 SAK (Rec: 04/18/20 08:39 SAK [id number]) Current Condition History of Current Condition Onset Date 09/30/19 Current Complaints pain and weakness History of Current Condition On 09/30/2019,she underwent bilateral skin sparing mastectomy and left axillary sentinel node biopsy due to diagnosis of breast cancer, followed by chemotherapy, 30 treatments of radiation. She received adjuvant radiation therapy from 02/14/2020 to 03/26. At this time is c/o pain bilateral pain bilateral shoulders right greater than left and chest left greater than right. Also c/o stiffness and weakness throughout especially in bilateral UE's. Continues with oral medication, Hydrocodone for pain. 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 Wants to improve ROM and strength, return to prior level of function. Trying to walk 1 mile per day when possible. Energy level low but some improved. Has plans for reconstruction 1 year out from radiation. 5 lymph nodes removed left, 2 right. Unable to reach overhead, and behind her back without pain. Future Testing and Treatments Planned Next appointment with Dr. Hull July 12. 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 Functional Limitations- Work/School unable to work PT-OP-C Subjective Start: 04/17/20 12:50 Freq: Status: Active Protocol: Document 05/15/20 10:33 SAK (Rec: 05/15/20 10:56 SAK [id number]) OP-PT Subjective Patient Comments Patient Comments Increased pain and spasms on left side over the past few days, no known reason. Anthony was low-bey, minimal stress. Having port removed tomorrow. PT-OP-J Posture/Palpation/Skin Start: 04/17/20 12:50 Freq: Status: Active Protocol: Document 04/18/20 08:11 SAK (Rec: 04/18/20 10:28 [facility] [id number]) Posture Evaluation Position Sitting Head/C-Spine Posture C-Spine Flattened T-Spine Posture Increased Kyphosis Shoulder Posture (L) Rounded,(R) Rounded Scapula Posture (L) Protracted,(R) Protracted Palpation Assessment Location subaxillary Palpation Details no palpable axillary cording Skin Assessment Incisional Assessment Incision Appearance/Comments well healed incisions, no warmth Other Assessments Skin Assessment Comments No edema noted. Mild skin changes from radiation left lateral chest and breast, skin dry and with decreased mobility. PT-OP-K Range of Motion Start: 04/17/20 12:50 Freq: Status: Active Protocol: Document 04/18/20 08:11 SAK (Rec: 04/18/20 10:28 [facility] [id number]) Cervical Spine Range of Motion Cervical Spine Active ROM Limitations Soft Tissue Tightness Comments mild decrease all motions. Shoulder Goniometric Range of Motion Shoulder Left Flexion 150 Extension 30 Abduction 140 Internal Rotation Behind Back (text) L4 Right Flexion 150 Extension 25 Abduction 145 Internal Rotation Behind Back (text) superior buttock Shoulder ROM Limitations Shoulder ROM Limitations Soft Tissue Tightness,Pain PT-OP-L Special Tests Start: 04/17/20 12:50 Freq: Status: Active Protocol: Document 04/18/20 08:11 SAK (Rec: 04/18/20 10:28 [facility] [id number]) Special Tests Shoulder Special Tests Elevation Impingement Test Results positive right PT-OP-M Strength Start: 04/17/20 12:50 Freq: Status: Active Protocol: Document 04/18/20 08:11 SAK (Rec: 04/18/20 10:28 [facility] [id number]) Shoulder Strength Shoulder Manual Muscle Testing Right Flexion 3+ Fair+ Extension 4- Good- Abduction (C5) 3+ Fair+ External Rotation 3 Fair Internal Rotation 3+ Fair+ Left Flexion 4- Good- Extension 4- Good- Abduction (C5) 4- Good- External Rotation 4- Good- Internal Rotation 4- Good- PT-OP-N Lymphedema Start: 04/17/20 12:50 Freq: Status: Active Protocol: Document 04/18/20 08:11 [facility] (Rec: 04/18/20 10:28 [facility] [id number]) Lymphedema Measurements Upper Extremity Circumference Measurements left UE - no signs or symptoms of lymphedema right UE - no signs or symptoms of lymphedema PT-OP-T Assessment and Plan Start: 04/17/20 12:50 Freq: Status: Active Protocol: Document 07/09/20 10:41 [facility] (Rec: 07/09/20 10:42 [facility] [id number]) Physical Therapy Plan Discharge Physical Therapy Discharge Reasons Patient Request Discharge Comments Patient discontinued treatment after 05/15/20 visit duet to pandemic. Spoke with her by phone, states she is doing ok, requests discharge from PT.
== END 2020-07-11 08:19 ==
LOC: PHYS 10:30
PROVIDERS: PCP Internal Medicine; Referring Provider Internal Medicine Hematology & Oncology; Visit Provider Internal Medicine Hematology & Oncology
DX: C50.412 Malignant neoplasm of upper-outer quadrant of left female breast (principal); Z17.0 Estrogen receptor positive status [ER+]
CPT/HCPCS: 97110; 97140; 97162; 97535

== ENCOUNTER 2020-05-16 08:38 | Day surgery (SDC) | payer OTHER, MEDICAID, SELFPAY ==
[2019-11-02 15:09] VITALS: BMI 21.4
--- NOTE | 2020-05-16 | PATH_ITS ---
[facility] Accession Number: [id number] . 01 Material submitted: . OTHER - PORTACATH FOR GROSS EXAMINATION . 01 Clinical history: . PORTACATH FOR GROSS EXAMINATION . 02 Diagnosis: Port-A-Cath, Removal: Catheter; see Gross Description. Benign fibroadipose tissue. No evidence of neoplasm. MRV 05/21/2020 1454 Local . 02 Electronically signed: . Cash Huang MD, PhD, Pathologist NPI- [id number] . 01 Gross description: . Received fresh, labeled Port-A-Cath consists of a 2.7 x 2.1 x 1.2 cm white plastic Port-A-Cath device with the inscription BARD [id number] and attached plastic white tubing measuring 33 cm in length by 0.2 cm in diameter. There is a 2.5 x 1.0 x 0.3 cm aggregate of attached paulson-pink soft tissue. The soft tissue is entirely submitted in cassette A1. (EA:[id number]) /MRV 05/17/2020 0954 Local . 02 Pathologist provided ICD-10: Z45.2, Z85.3 . 02 CPT . 161436 Performed at: 01 [facility] [address], [place], [place] [id number] MD Magdi Verduzco MD Phone: [phone] Performed at: 02 [facility] [address] [place], [place] [id number] MD Kayla Dooley MD Phone: [phone]
[2020-05-16 09:03] VITALS: BP 133/76; PULSE 87; RESP 16; TEMP 36.4; O2SAT 97; BMI 22.8
[2020-05-16] MEDS: LACTATED RINGERS 1,000 ML 100 ML IV (09:13)
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
[2020-05-16] MEDS: VANCOMYCIN 1,000 MG/200 ML PIGGYBACK 200 MG IV (11:00)
--- NOTE | 2020-05-16 11:17 | SUR.OPER ---
Supine on padded OR bed, head on pillow, arms secured on padded arm boards at <90 degrees abduction, legs uncrossed, safety belt at thigh, tape over blanket over lower legs.
[2020-05-16] MEDS: BUPIVACAINE 0.25% W/ EPI (PF) 10 ML VIAL 20 ML INJ (11:20)
[2020-05-16 11:36] VITALS: BP 85/47; PULSE 83; RESP 12; TEMP 36.4; O2SAT 96
[2020-05-16 11:40] VITALS: BP 95/49; PULSE 80; RESP 14; O2SAT 97
[2020-05-16 11:46] VITALS: BP 105/61; PULSE 78; RESP 16; O2SAT 98
[2020-05-16 11:47] VITALS: BP 129/76; PULSE 80; RESP 14; TEMP 36.8; O2SAT 97
--- NOTE | 2020-05-16 11:47 | PM.OP.1 ---
Operative Date/Time/Diagnoses Date of procedure: 05/16/20 Time of procedure: 11:47 Pre-op diagnosis: Breast cancer patient. Portacath in place, no longer needed. Post-op diagnosis: same Procedure & Clinicians Procedure: Portacath removal Same procedure as scheduled: Yes Indications: Breast cancer patient who has completed adjuvant therapy and would like to have port removed. Surgeon: Maryse Sarah Click Yes if Unassisted: Yes Anesthesia Type: General Operative Notes Findings: Intact port and catheter removed without complication Closure Type: primary Specimen(s): other (port and catheter intact for gross only) Estimated Blood Loss (mL): 1 Procedure in detail: Patient was placed supine on the operating room table and underwent general LMA anesthesia. Sequential compression devices were placed on the patient and turned on. The neck and chest were prepped and draped in the usual fashion. Appropriate pre operative antibiotic was given. Surgical time out was conducted. The patient was positioned in Trendelenburg, and local anesthetic was infiltrated beneath the skin at the site of the patient's portacath. A 3 cm transverse incision was then made in the skin at the site of the prior skin incision. Dissection was carried down through the subcutaneous tissue until the portacath was encountered. With the patient in Trendelenberg position, the catheter was withdrawn from the IJ into the wound, while gentle pressure was held on the IJ. The entire catheter came out whole and intact, without any difficulty. Pressure was held on the IJ for five minutes. The port was then dissected out, and the scar tissue surrounding it was dissected out and removed to reduce seroma formation. The skin was then closed with 3 0 Vicryl and 4 0 Monocryl, and the skin incisions were sealed with Dermabond. The port and catheter were passed off the table for gross pathology. This concluded the procedure and the patient was awakened from anesthesia and transferred to the postanesthesia care unit in stable condition. Needle sponge and instrument counts were correct x2 at the end of the case. The patient tolerated the procedure well and was transferred to the PACU in stable condition. Complications: none Post-operative Condition: stable Disposition: PACU
--- NOTE | 2020-05-16 11:57 | SUR.PHASEII ---
Patient brought to OPD, desires to rest before being discharged. Warm blankets and hot chocolate given. Surgical site CDI. Pt oriented and comfortable.
[2020-05-16 12:10] VITALS: BP 102/65; PULSE 72; RESP 16; TEMP 36.8; O2SAT 96
== END 2020-05-16 12:24 | disposition home or self-care (01) ==
LOC: OR 08:41
PROVIDERS: PCP Internal Medicine; Referring Provider Internal Medicine; Visit Provider Surgery
PROC: (CPT 36590; principal; 2020-05-16 10:15)
DX: Z45.2 Encounter for adjustment and management of vascular access device (principal); Z85.3 Personal history of malignant neoplasm of breast
CPT/HCPCS: 36590; J1100; J2250; J2405; J2704; J3010

== ENCOUNTER → 2020-07-12 09:05 | Outpatient (CLI) | payer OTHER, MEDICAID, SELFPAY ==
[2019-11-02 15:09] VITALS: BMI 21.4
[2020-07-12 09:49] LABS: Add Manual Diff / Slide Review NO; Basophils Absolute Auto 100 /uL (0-100); Eosinophils Absolute Auto 600 /uL (0-450); Eosinophils Percent Auto 10.6 % (2-4); Hematocrit 40.8 % (36-46); Hemoglobin 13.4 g/dL (12.0-16.0); Lymphocytes Absolute Auto 1400 /uL (1100-4500); Lymphocytes Percent Auto 24.9 % (25-40); Mean Corpuscular HGB Conc 32.9 % (30-36); Mean Corpuscular Hemoglobin 30.1 PG (26-34); Mean Corpuscular Volume 91.6 fL (80-100); Monocytes Absolute Auto 500 /uL (0-900); Monocytes Percent Auto 8.4 % (3-14); Neutrophils Absolute Auto 3200 /uL (1500-7000); Neutrophils Percent Auto 55.1 % (50-75); Platelet Count 221 X10^3/uL (150-400); Red Blood Cell Count 4.45 X10^6/uL (4.0-5.2); Red Cell Distribution Width 14.1 % (11.6-14.8); White Blood Cell Count 5.8 X10^3/uL (4.5-11.0)
[2020-07-12 09:56] LABS: Alanine Aminotransferase 16 IU/L (<35); Albumin 3.9 g/dL (3.5-5.0); Albumin Globulin Ratio 1.4 (1.0-2.8); Alkaline Phosphatase 78 U/L (38-126); Aspartate Aminotransferase 19 IU/L (14-36); Bilirubin Total 0.1 mg/dL (0.2-1.3); Blood Urea Nitrogen 18 mg/dL (7-17); Calcium 9.3 mg/dL (8.4-10.2); Carbon Dioxide 26 mmol/L (22-32); Chloride 106 mmol/L (98-107); Estimated Glomerular Filt Rate > 60.0 mL/min (>60); Globulin 2.8 g/dL (1.7-4.1); Glucose 142 mg/dL (80-110); HEMOLYSIS < 15 (0-50); Potassium 3.6 mmol/L (3.4-5.1); Sodium 138 mmol/L (137-145); Total Protein 6.7 g/dL (6.3-8.2)
== END ==
PROVIDERS: PCP Internal Medicine; Referring Provider Internal Medicine; Visit Provider Internal Medicine Hematology & Oncology
DX: C50.412 Malignant neoplasm of upper-outer quadrant of left female breast (principal); Z17.0 Estrogen receptor positive status [ER+]
CPT/HCPCS: 36415; 80053; 85025

== ENCOUNTER → 2020-09-26 14:53 | Outpatient (CLI) | payer OTHER, MEDICAID, SELFPAY ==
[2019-11-02 15:09] VITALS: BMI 21.4
[2020-09-26 16:50] LABS: Alanine Aminotransferase 17 IU/L (<35); Albumin 3.9 g/dL (3.5-5.0); Albumin Globulin Ratio 1.4 (1.0-2.8); Alkaline Phosphatase 85 U/L (38-126); Aspartate Aminotransferase 22 IU/L (14-36); BUN Creatinine Ratio 21.9 (6-22); Blood Urea Nitrogen 14 mg/dL (7-17); Calcium 9.2 mg/dL (8.4-10.2); Carbon Dioxide 27 mmol/L (22-32); Chloride 105 mmol/L (98-107); Estimated Glomerular Filt Rate > 60.0 mL/min (>60); Globulin 2.7 g/dL (1.7-4.1); Glucose 141 mg/dL (80-110); HEMOLYSIS < 15 (0-50); Potassium 3.4 mmol/L (3.4-5.1); Sodium 140 mmol/L (137-145); Total Protein 6.6 g/dL (6.3-8.2)
[2020-09-26 16:51] LABS: Bilirubin Total < 0.1 mg/dL (0.2-1.3)
== END ==
PROVIDERS: PCP Internal Medicine
DX: Z42.1 Encounter for breast reconstruction following mastectomy (principal); Z01.810 Encounter for preprocedural cardiovascular examination; Z85.3 Personal history of malignant neoplasm of breast
CPT/HCPCS: 36415; 80053; 93005; 93010

== ENCOUNTER → 2022-01-24 10:17 | Outpatient (CLI) | payer OTHER, MEDICAID, SELFPAY ==
[2019-11-02 15:09] VITALS: BMI 21.4
== END ==
PROVIDERS: PCP Internal Medicine; Referring Provider Internal Medicine Hematology & Oncology; Visit Provider Internal Medicine Hematology & Oncology
DX: M81.0 Age-related osteoporosis without current pathological fracture (principal); C50.912 Malignant neoplasm of unspecified site of left female breast; M85.89 Other specified disorders of bone density and structure, multiple sites
CPT/HCPCS: 77080

== ENCOUNTER → 2022-07-29 13:50 | Outpatient (CLI) | payer OTHER, MEDICAID, SELFPAY ==
[2019-11-02 15:09] VITALS: BMI 21.4
[2022-07-29 14:04] LABS: Add Manual Diff / Slide Review NO; Basophils Absolute Auto 0 /uL (0-100); Basophils Percent Auto 0.6 % (0-2); Eosinophils Absolute Auto 200 /uL (0-450); Eosinophils Percent Auto 2.3 % (2-4); Hematocrit 39.4 % (36-46); Hemoglobin 13.3 g/dL (12.0-16.0); Lymphocytes Absolute Auto 1400 /uL (1100-4500); Lymphocytes Percent Auto 20.6 % (25-40); Mean Corpuscular HGB Conc 33.6 % (30-36); Mean Corpuscular Volume 89.3 fL (80-100); Monocytes Absolute Auto 900 /uL (0-900); Monocytes Percent Auto 13.1 % (3-14); Neutrophils Absolute Auto 4200 /uL (1500-7000); Neutrophils Percent Auto 63.4 % (50-75); Platelet Count 224 X10^3/uL (150-400); Red Blood Cell Count 4.41 X10^6/uL (4.0-5.2); Red Cell Distribution Width 14.5 % (11.6-14.8); White Blood Cell Count 6.7 X10^3/uL (4.5-11.0)
[2022-07-29 14:20] LABS: Alanine Aminotransferase 21 IU/L (<35); Albumin 3.9 g/dL (3.5-5.0); Albumin Globulin Ratio 1.1 (1.0-2.8); Alkaline Phosphatase 87 U/L (38-126); Aspartate Aminotransferase 24 IU/L (14-36); BUN Creatinine Ratio 21.5 (6-22); Bilirubin Total 0.3 mg/dL (0.2-1.3); Blood Urea Nitrogen 23 mg/dL (7-17); Calcium 8.9 mg/dL (8.4-10.2); Carbon Dioxide 31 mmol/L (22-32); Chloride 103 mmol/L (98-107); Estimated Glomerular Filt Rate 58 mL/min (>60); Globulin 3.4 g/dL (1.7-4.1); Glucose 99 mg/dL (80-110); HEMOLYSIS < 15 (0-50); Potassium 3.7 mmol/L (3.4-5.1); Sodium 140 mmol/L (137-145); Total Protein 7.3 g/dL (6.3-8.2)
== END ==
PROVIDERS: Internal Medicine Hematology & Oncology; PCP Internal Medicine; Referring Provider Internal Medicine; Visit Provider Internal Medicine
DX: C50.912 Malignant neoplasm of unspecified site of left female breast (principal)
CPT/HCPCS: 36415; 80053; 85025

== ENCOUNTER 2023-02-03 16:00 | Outpatient (RCR) | payer OTHER, MEDICAID, SELFPAY ==
[2019-11-02 15:09] VITALS: BMI 21.4
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
--- NOTE | 2022-10-07 15:19 | PT.OPPOC ---
Physical, Occupational & Speech Therapy At [facility] Current Diagnoses Other chronic pain (10/07/22) Pain in right shoulder (10/07/22) Visit Care Team Role Provider Type Dae Rojas MD Other Providers Physician Specialty: Oncology Address: [address] [place] [address], [address] Email: [email or web address] Jose Ann MD Attending Provider Physician Family Provider Primary Care Provider Referring Provider Specialty: Internal Medicine Address: [address] [place] [address], [address], [place], [address] Email: [email or web address] Plan Of Care PT-OP-T Assessment and Plan Start: 10/07/22 13:25 Freq: Status: Active Protocol: Document 10/07/22 13:26 ES (Rec: 10/07/22 15:17 ES [id number]) Physical Therapy Assessment Rehab Potential Rehabilitation Potential Good Evaluation Complexity Number of Personal Factors/Comorbidities 1-2 Number of Body Systems Impaired 1-2 Clinical Presentation at Evaluation Stable Impairments Impairments Functional Activities,Pain,ROM ,Soft Tissue Mobility,Strength Goals Four Impairment ROM/strength/function [facility] Goal (LTG) Patient will be independent with HEP for ROM and strength. LTG Duration 8 weeks (12/02/22) Three Impairment Function Meeting Manager Goal (LTG) Patient will have a reduction in QuickDASH score to 38.5 or less indicating clinically significant improvement in function. LTG Duration 8 weeks (12/02/22) Two Impairment Weakness Short Term Goal (STG) Patient will demonstrate increased R shoulder IR/ER strength to 4+/5 without increased pain to improve ability to use dominant RUE for ADL's. STG Duration 4 weeks (11/04/22) One Impairment ROM Short Term Goal (STG) Patient will demonstrate increased R shoulder functional ER ROM to T3 and functional IR ROM to L3 to improve ability to get dressed and bathe. STG Duration 4 weeks (11/04/22) Assessment Summary Assessment Patient is a 61 year old female with a hx of multiple R upper quarter surgeries including RCR who presents now with 1.5 year duration of R shoulder pain. She demonstrated decreased ROM R vs L with pain at end ranges, decreased R shoulder strength specifically in RC, and had positive tests for GHJ impingement. She is functionally limited in her ability to use her R dominant arm for ADL's, especially ones that involve reaching overhead, out to the side, and lifting/carrying. She will benefit from skilled PT to address these problems in order to improve functional use of RUE with decreased pain . Physical Therapy Plan Frequency and Duration Frequency of Treatment 1-2x/week Duration of treatment (weeks) 8 Plan of Care Start Date 10/07/22 Plan of Care End Date 12/02/22 Therapeutic Interventions Therapeutic Interventions Home Exercise Program,Joint Mobilizations,Manual Therapy, Neuromuscular Re-education, Patient/Caregiver Education, Self-Care/Home Management,Soft Tissue Mobilization,Taping, Therapeutic Activities, Therapeutic Exercises Modalities Cold Pack/Ice Massage,Electric Stimulation,Hot Packs, Ultrasound Next Visit Focus/Plan Next Note Type Treatment Note Next Visit Plan Manual therapy for inferior glide, assess lat length and consider stretching, progress RC strengthening as indicated. Consider kinesiotaping, US. Plan of Care Dates Plan of Care Start Date 10/07/22 Plan of Care End Date 12/02/22 Electronically Signed by: Cathie Shah, PT 10/07/22 [id number] If you are in agreement with this Plan of Care, please return a signed and dated copy. I have reviewed this Plan of Care and certify that the skilled therapy services above are required to meet the patient?s needs. Physician Signature Date Printed Name and Credentials Clinical Instructor Signature Printed Name and Credentials
--- NOTE | 2022-10-21 10:30 | PT.OTN ---
Current Diagnoses Other chronic pain (10/21/22) Pain in right shoulder (10/21/22) Physical Therapy Treatment Note PT-OP-A Visit Information Start: 10/07/22 13:25 Freq: Status: Active Protocol: Document 10/21/22 09:36 ES (Rec: 10/21/22 10:06 ES [id number]) Out-Patient Physical Therapy Visit Information Visit Information Visit Type Treatment Note Visit Note Patient arrived late; thought her appt was at 9:30 Visit Start Time 09:37 Visit Stop Time 10:00 Total Visit Minutes 23 Visit Number 07/11 PT-OP-B Current Condition Start: 10/07/22 13:25 Freq: Status: Active Protocol: Document 10/07/22 13:26 ES (Rec: 10/07/22 15:17 ES [id number]) Current Condition History of Current Condition Onset Date April 2021 Current Complaints R shoulder and arm pain History of Current Condition Patient has a hx of multiple surgeries in the past 3 years, including axillary lymph node removal B, B mastectomy and reconstruction surgery. Ever since having her portacath removed from R chest, she has been having pain in the R shoulder. Has had x-ray and her surgeon has done some tests and has been told that her RC is fine. Patient has a hx of RCR R side several years ago. 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 Prior Treatments and Tests X-rays were negative. Has had some short massage sessions which helped temporarily. Treatment Goals Patient/Caregiver Goals To be able to do her ADL's with less pain. PT-OP-C Subjective Start: 10/07/22 13:25 Freq: Status: Active Protocol: Document 10/21/22 09:36 ES (Rec: 10/21/22 10:06 ES [id number]) OP-PT Subjective Patient Comments Patient Comments Patient reported that she did the isometric exercises and had pain with pushing out (ER) but not with pushing in. Shoulder feels overall about the same. Pain at start of tx 09/24. PT-OP-F Manual Assessment Start: 10/07/22 13:25 Freq: Status: Active Protocol: Document 10/07/22 13:26 ES (Rec: 10/07/22 15:17 ES [id number]) Manual Assessments Soft Tissue Assessment Soft Tissue Mobility Assessment Scarring noted in chest, axilla, top of shoulder all with good mobility, non-tender . Increased muscle tension noted in R upper trap, pec major. Joint Mobility Assessment Joint Mobility Assessment Decreased inferior glide R GHJ . PT-OP-J Posture/Palpation/Skin Start: 10/07/22 13:25 Freq: Status: Active Protocol: Document 10/07/22 13:26 ES (Rec: 10/07/22 15:17 ES [id number]) Posture Evaluation Position Standing Head/C-Spine Posture Side Bent Left Shoulder Posture Neutral Scapula Posture (R) Depressed Arm Posture (L) Neutral,(R) Neutral PT-OP-K Range of Motion Start: 10/07/22 13:25 Freq: Status: Active Protocol: Document 10/07/22 13:26 ES (Rec: 10/07/22 15:17 ES [id number]) Shoulder Goniometric Range of Motion Shoulder Left Active Shoulder ROM WFL Yes Testing Position Standing Internal Rotation Behind Back (text) L1 Comments ER behind head to T3 Right Active Testing Position Standing Internal Rotation Behind Back (text) L5 Comments ER hand behind head to T1 Flexion and abduction AROM = 90% of R L side other than IR Pain with flexion, abduction, ER, and IR; decreased pain with flexion and abduction with manual GHJ caudal glide applied. PT-OP-L Special Tests Start: 10/07/22 13:25 Freq: Status: Active Protocol: Document 10/07/22 13:26 ES (Rec: 10/07/22 15:17 ES [id number]) Special Tests Shoulder Special Tests Neer Impingement Test Results Positive R Rivera Dominguez Impingement Test Results Positive R Empty Can Test Results Positive R Drop Arm Rotator Cuff Test Results Positive for pain R PT-OP-M Strength Start: 10/07/22 13:25 Freq: Status: Active Protocol: Document 10/07/22 13:26 ES (Rec: 10/07/22 15:17 ES [id number]) Shoulder Strength Shoulder Manual Muscle Testing Left External Rotation 5 Normal Internal Rotation 5 Normal Right External Rotation 4- Good- Internal Rotation 4- Good- Comments Pain with RC strength testing; decreased pain when GHJ caudal glide applied manually. PT-OP-Q Treatments Start: 10/07/22 13:25 Freq: Status: Active Protocol: Document 10/21/22 09:36 ES (Rec: 10/21/22 10:06 ES [id number]) Therapeutic Exercises Standing Exercises 2 Standing Exercise Name Cross body stretch Side right Reps/Minutes 3x30s Comments Instructed for home 1 Standing Exercise Name Isometric ER/IR Side right Resistance Light/moderate Reps/Minutes [id number] Comments Instructed to use towel between elbow and side at home Manual Therapy Treatment Soft Tissue Mobilization 1 Body Location R pec major, lat, scap-hum mm' s, UT Mobilization Type Myofascial Release,Trigger Point Release Intensity/Depth Light to moderate Body Position Supine Joint Mobilizations 1 Joint GHJ Direction Caudal Grade III Body Position Supine Comments at 90 degrees abduction, 90 degrees flexion PT-OP-T Assessment and Plan Start: 10/07/22 13:25 Freq: Status: Active Protocol: Document 10/21/22 09:36 ES (Rec: 10/21/22 10:06 ES [id number]) Physical Therapy Assessment Assessment Summary Assessment Patient had decreased pain with shoulder flexion following today's treatment. She had tightness and tenderness in scapulohumeral mm's and had decreased length R posterior capsule vs L with associated early scapular abduction. Physical Therapy Plan Next Visit Focus/Plan Next Note Type Treatment Note Next Visit Plan ASsess response to manual therapy, review new stretch. Progress scapular and RC strengthening. Consider kinesiotaping.
--- NOTE | 2022-11-11 17:00 | PT.OTN ---
Current Diagnoses Other chronic pain (11/11/22) Pain in right shoulder (11/11/22) Physical Therapy Treatment Note PT-OP-A Visit Information Start: 10/07/22 13:25 Freq: Status: Active Protocol: Document 11/11/22 13:05 ES (Rec: 11/11/22 13:50 ES [id number]) Out-Patient Physical Therapy Visit Information Visit Information Visit Type Treatment Note Visit Start Time 13:07 Visit Stop Time 13:50 Total Visit Minutes 43 Visit Number 08/08 Evaluation Information Evaluation Date 10/07/22 PT-OP-B Current Condition Start: 10/07/22 13:25 Freq: Status: Active Protocol: Document 10/07/22 13:26 ES (Rec: 10/07/22 15:17 ES [id number]) Current Condition History of Current Condition Onset Date April 2021 Current Complaints R shoulder and arm pain History of Current Condition Patient has a hx of multiple surgeries in the past 3 years, including axillary lymph node removal B, B mastectomy and reconstruction surgery. Ever since having her portacath removed from R chest, she has been having pain in the R shoulder. Has had x-ray and her surgeon has done some tests and has been told that her RC is fine. Patient has a hx of RCR R side several years ago. 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 Prior Treatments and Tests X-rays were negative. Has had some short massage sessions which helped temporarily. Treatment Goals Patient/Caregiver Goals To be able to do her ADL's with less pain. PT-OP-C Subjective Start: 10/07/22 13:25 Freq: Status: Active Protocol: Document 11/11/22 13:05 ES (Rec: 11/11/22 13:50 ES [id number]) OP-PT Subjective Patient Comments Patient Comments Patient reported that her shoulder has been sore, thinks it might be because of the exercises. Has been using the L arm more for helping her mom . Some days are better than others. Seems to change with the weather. Reported that she had some relief after the last visit for a couple days. Has been having some soreness into her neck. PT-OP-F Manual Assessment Start: 10/07/22 13:25 Freq: Status: Active Protocol: Document 10/07/22 13:26 ES (Rec: 10/07/22 15:17 ES [id number]) Manual Assessments Soft Tissue Assessment Soft Tissue Mobility Assessment Scarring noted in chest, axilla, top of shoulder all with good mobility, non-tender . Increased muscle tension noted in R upper trap, pec major. Joint Mobility Assessment Joint Mobility Assessment Decreased inferior glide R GHJ . PT-OP-J Posture/Palpation/Skin Start: 10/07/22 13:25 Freq: Status: Active Protocol: Document 10/07/22 13:26 ES (Rec: 10/07/22 15:17 ES [id number]) Posture Evaluation Position Standing Head/C-Spine Posture Side Bent Left Shoulder Posture Neutral Scapula Posture (R) Depressed Arm Posture (L) Neutral,(R) Neutral PT-OP-K Range of Motion Start: 10/07/22 13:25 Freq: Status: Active Protocol: Document 10/07/22 13:26 ES (Rec: 10/07/22 15:17 ES [id number]) Shoulder Goniometric Range of Motion Shoulder Left Active Shoulder ROM WFL Yes Testing Position Standing Internal Rotation Behind Back (text) L1 Comments ER behind head to T3 Right Active Testing Position Standing Internal Rotation Behind Back (text) L5 Comments ER hand behind head to T1 Flexion and abduction AROM = 90% of R L side other than IR Pain with flexion, abduction, ER, and IR; decreased pain with flexion and abduction with manual GHJ caudal glide applied. PT-OP-L Special Tests Start: 10/07/22 13:25 Freq: Status: Active Protocol: Document 10/07/22 13:26 ES (Rec: 10/07/22 15:17 ES [id number]) Special Tests Shoulder Special Tests Neer Impingement Test Results Positive R Rivera Dominguez Impingement Test Results Positive R Empty Can Test Results Positive R Drop Arm Rotator Cuff Test Results Positive for pain R PT-OP-M Strength Start: 10/07/22 13:25 Freq: Status: Active Protocol: Document 10/07/22 13:26 ES (Rec: 10/07/22 15:17 ES [id number]) Shoulder Strength Shoulder Manual Muscle Testing Left External Rotation 5 Normal Internal Rotation 5 Normal Right External Rotation 4- Good- Internal Rotation 4- Good- Comments Pain with RC strength testing; decreased pain when GHJ caudal glide applied manually. PT-OP-Q Treatments Start: 10/07/22 13:25 Freq: Status: Active Protocol: Document 11/11/22 13:05 ES (Rec: 11/11/22 16:56 ES [id number]) Therapeutic Exercises Supine Exercises Shoulder IR/ER Side right Reps/Minutes 2x10 Comments AROM, then RROM 1lb weight, cued for scap/hum control, in 45 degrees abd Standing Exercises SA push-ups Side bilateral Reps/Minutes 2x10 Comments Modified at wall (HEP) Manual Therapy Treatment Soft Tissue Mobilization 1 Body Location R pec major, lat, scap-hum mm' s, UT Mobilization Type Myofascial Release,Trigger Point Release Intensity/Depth Light to moderate Body Position Supine Joint Mobilizations 1 Joint GHJ Direction Posterior, inferior Grade III Body Position Supine Comments In 90 degrees abduction. Sustained posterior glide during manual IR stretch in 90 degrees abduction. PT-OP-T Assessment and Plan Start: 10/07/22 13:25 Freq: Status: Active Protocol: Document 11/11/22 13:05 ES (Rec: 11/11/22 13:50 ES [id number]) Physical Therapy Assessment Goals Four Impairment ROM/strength/function Group Home Goal (LTG) Patient will be independent with [facility] for ROM and strength. LTG Duration 8 weeks (12/02/22) Three Impairment Function [employer] Buyer Goal (LTG) Patient will have a reduction in QuickDASH score to 38.5 or less indicating clinically significant improvement in function. LTG Duration 8 weeks (12/02/22) Two Impairment Weakness Short Term Goal (STG) Patient will demonstrate increased R shoulder IR/ER strength to 4+/5 without increased pain to improve ability to use dominant RUE for ADL's. STG Duration 4 weeks (11/04/22) One Impairment ROM Short Term Goal (STG) Patient will demonstrate increased R shoulder functional ER ROM to T3 and functional IR ROM to L3 to improve ability to get dressed and bathe. STG Duration 4 weeks (11/04/22) Assessment Summary Assessment Patient able to tolerate RC strengthening in supine without increased pain in limited range. She demonstrated scapular winging with attempt at wall slides, able to do SA push-up modified at wall without increased pain. Instructed her to stop with cross-body stretch as this produced increased pain when she demonstrated during session. Physical Therapy Plan Frequency and Duration Frequency of Treatment 1-2x/week Duration of treatment (weeks) 8 Plan of Care Start Date 10/07/22 Plan of Care End Date 12/02/22 Therapeutic Interventions Therapeutic Interventions Home Exercise Program,Joint Mobilizations,Manual Therapy, Neuromuscular Re-education, Patient/Caregiver Education, Self-Care/Home Management,Soft Tissue Mobilization,Taping, Therapeutic Activities, Therapeutic Exercises Modalities Cold Pack/Ice Massage,Electric Stimulation,Hot Packs, Ultrasound Next Visit Focus/Plan Next Note Type Treatment Note Next Visit Plan Progress RC strength, continue working on IR ROM/posterior capsule length.
--- NOTE | 2022-11-25 16:52 | PT.OTN ---
Current Diagnoses Other chronic pain (11/25/22) Pain in right shoulder (11/25/22) Physical Therapy Treatment Note PT-OP-A Visit Information Start: 10/07/22 13:25 Freq: Status: Active Protocol: Document 11/25/22 14:48 ES (Rec: 11/25/22 16:52 ES [id number]) Out-Patient Physical Therapy Visit Information Visit Information Visit Type Treatment Note Visit Start Time 14:49 Visit Stop Time 15:40 Total Visit Minutes 51 Visit Number 09/08 Evaluation Information Evaluation Date 10/07/22 PT-OP-B Current Condition Start: 10/07/22 13:25 Freq: Status: Active Protocol: Document 10/07/22 13:26 ES (Rec: 10/07/22 15:17 ES [id number]) Current Condition History of Current Condition Onset Date April 2021 Current Complaints R shoulder and arm pain History of Current Condition Patient has a hx of multiple surgeries in the past 3 years, including axillary lymph node removal B, B mastectomy and reconstruction surgery. Ever since having her portacath removed from R chest, she has been having pain in the R shoulder. Has had x-ray and her surgeon has done some tests and has been told that her RC is fine. Patient has a hx of RCR R side several years ago. 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 Prior Treatments and Tests X-rays were negative. Has had some short massage sessions which helped temporarily. Treatment Goals Patient/Caregiver Goals To be able to do her ADL's with less pain. PT-OP-C Subjective Start: 10/07/22 13:25 Freq: Status: Active Protocol: Document 11/25/22 14:48 ES (Rec: 11/25/22 16:52 ES [id number]) OP-PT Subjective Patient Comments Patient Comments Patient reported sometimes she feels like she's doing better , sometimes not. Has been keeping up with exercises daily, not having any problems with them. Throws the ball to her dog multiple times a day, doesn't have problems doing that. PT-OP-F Manual Assessment Start: 10/07/22 13:25 Freq: Status: Active Protocol: Document 10/07/22 13:26 ES (Rec: 10/07/22 15:17 ES [id number]) Manual Assessments Soft Tissue Assessment Soft Tissue Mobility Assessment Scarring noted in chest, axilla, top of shoulder all with good mobility, non-tender . Increased muscle tension noted in R upper trap, pec major. Joint Mobility Assessment Joint Mobility Assessment Decreased inferior glide R GHJ . PT-OP-J Posture/Palpation/Skin Start: 10/07/22 13:25 Freq: Status: Active Protocol: Document 10/07/22 13:26 ES (Rec: 10/07/22 15:17 ES [id number]) Posture Evaluation Position Standing Head/C-Spine Posture Side Bent Left Shoulder Posture Neutral Scapula Posture (R) Depressed Arm Posture (L) Neutral,(R) Neutral PT-OP-K Range of Motion Start: 10/07/22 13:25 Freq: Status: Active Protocol: Document 10/07/22 13:26 ES (Rec: 10/07/22 15:17 ES [id number]) Shoulder Goniometric Range of Motion Shoulder Left Active Shoulder ROM WFL Yes Testing Position Standing Internal Rotation Behind Back (text) L1 Comments ER behind head to T3 Right Active Testing Position Standing Internal Rotation Behind Back (text) L5 Comments ER hand behind head to T1 Flexion and abduction AROM = 90% of R L side other than IR Pain with flexion, abduction, ER, and IR; decreased pain with flexion and abduction with manual GHJ caudal glide applied. PT-OP-L Special Tests Start: 10/07/22 13:25 Freq: Status: Active Protocol: Document 10/07/22 13:26 ES (Rec: 10/07/22 15:17 ES [id number]) Special Tests Shoulder Special Tests Neer Impingement Test Results Positive R Rivera Dominguez Impingement Test Results Positive R Empty Can Test Results Positive R Drop Arm Rotator Cuff Test Results Positive for pain R PT-OP-M Strength Start: 10/07/22 13:25 Freq: Status: Active Protocol: Document 10/07/22 13:26 ES (Rec: 10/07/22 15:17 ES [id number]) Shoulder Strength Shoulder Manual Muscle Testing Left External Rotation 5 Normal Internal Rotation 5 Normal Right External Rotation 4- Good- Internal Rotation 4- Good- Comments Pain with RC strength testing; decreased pain when GHJ caudal glide applied manually. PT-OP-Q Treatments Start: 10/07/22 13:25 Freq: Status: Active Protocol: Document 11/25/22 14:48 ES (Rec: 11/25/22 16:52 ES [id number]) Therapeutic Exercises Sitting Exercises Shoulder IR Side right Resistance L1 band Reps/Minutes 2x15 Comments 90 degrees humeral elevation, elbow supported on pillows Shoulder ER Side right Resistance 2lb Reps/Minutes 2x15 Comments 90 degrees humeral elevation, supported on pillows Standing Exercises Towel IR stretch Side right Reps/Minutes 3x30s Horiz abd Standing Exercise Name (bent over chicken wing) Side right Reps/Minutes 2x15 SA hug Side right Resistance L3 band Reps/Minutes 2x15 Manual Therapy Treatment Soft Tissue Mobilization 1 Body Location R scap-hum mm's, post deltoid Mobilization Type Myofascial Release,Strumming, Sustained Pressure,Trigger Point Release Intensity/Depth Moderate Body Position Supine, sidelying Joint Mobilizations 1 Joint GHJ Direction Posterior, inferior Grade III Body Position Supine Comments In 90 degrees abduction. Sustained posterior glide during manual IR stretch in 90 degrees abduction. PT-OP-T Assessment and Plan Start: 10/07/22 13:25 Freq: Status: Active Protocol: Document 11/25/22 14:48 ES (Rec: 11/25/22 16:52 ES [id number]) Physical Therapy Assessment Goals Four Impairment ROM/strength/function [employer] Maker Goal (LTG) Patient will be independent with [facility] for ROM and strength. LTG Duration 8 weeks (12/02/22) Three Impairment Function [facility] Goal (LTG) Patient will have a reduction in QuickDASH score to 38.5 or less indicating clinically significant improvement in function. LTG Duration 8 weeks (12/02/22) Two Impairment Weakness Short Term Goal (STG) Patient will demonstrate increased R shoulder IR/ER strength to 4+/5 without increased pain to improve ability to use dominant RUE for ADL's. STG Duration 4 weeks (11/04/22) One Impairment ROM Short Term Goal (STG) Patient will demonstrate increased R shoulder functional ER ROM to T3 and functional IR ROM to L3 to improve ability to get dressed and bathe. STG Duration 4 weeks (11/04/22) Assessment Summary Assessment Patient demonstrated improved R shoulder IR behind back following today's treatment. Still having pain with forward flexion, also improved with today's ex's. She will benefit from further therapy to improve ROM and strength to reduce pain with functional use of RUE. Physical Therapy Plan Frequency and Duration Frequency of Treatment 1-2x/week Duration of treatment (weeks) 8 Plan of Care Start Date 10/07/22 Plan of Care End Date 12/02/22 Therapeutic Interventions Therapeutic Interventions Home Exercise Program,Joint Mobilizations,Manual Therapy, Neuromuscular Re-education, Patient/Caregiver Education, Self-Care/Home Management,Soft Tissue Mobilization,Taping, Therapeutic Activities, Therapeutic Exercises Modalities Cold Pack/Ice Massage,Electric Stimulation,Hot Packs, Ultrasound Next Visit Focus/Plan Next Note Type Progress Note Next Visit Plan [facility] next visit. Assess response to new ex's.
--- NOTE | 2022-12-02 14:00 | PT.OTN ---
Current Diagnoses Other chronic pain (12/02/22) Pain in right shoulder (12/02/22) Physical Therapy Treatment Note PT-OP-A Visit Information Start: 10/07/22 13:25 Freq: Status: Active Protocol: Document 12/02/22 14:48 AMB (Rec: 12/02/22 16:16 AMB [id number]) Out-Patient Physical Therapy Visit Information Visit Information Visit Type Treatment Note Visit Note pt arrived 15 min late Visit Start Time 14:45 Visit Stop Time 15:15 Total Visit Minutes 30 Visit Number 10/08 PT-OP-B Current Condition Start: 10/07/22 13:25 Freq: Status: Active Protocol: Document 10/07/22 13:26 ES (Rec: 10/07/22 15:17 ES [id number]) Current Condition History of Current Condition Onset Date April 2021 Current Complaints R shoulder and arm pain History of Current Condition Patient has a hx of multiple surgeries in the past 3 years, including axillary lymph node removal B, B mastectomy and reconstruction surgery. Ever since having her portacath removed from R chest, she has been having pain in the R shoulder. Has had x-ray and her surgeon has done some tests and has been told that her RC is fine. Patient has a hx of RCR R side several years ago. 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 Prior Treatments and Tests X-rays were negative. Has had some short massage sessions which helped temporarily. Treatment Goals Patient/Caregiver Goals To be able to do her ADL's with less pain. PT-OP-C Subjective Start: 10/07/22 13:25 Freq: Status: Active Protocol: Document 12/02/22 14:48 AMB (Rec: 12/02/22 16:16 AMB [id number]) OP-PT Subjective Patient Comments Patient Comments Patient reports continued pain with hair care, is doing exercises, IR stretch painful. PT-OP-F Manual Assessment Start: 10/07/22 13:25 Freq: Status: Active Protocol: Document 10/07/22 13:26 ES (Rec: 10/07/22 15:17 ES [id number]) Manual Assessments Soft Tissue Assessment Soft Tissue Mobility Assessment Scarring noted in chest, axilla, top of shoulder all with good mobility, non-tender . Increased muscle tension noted in R upper trap, pec major. Joint Mobility Assessment Joint Mobility Assessment Decreased inferior glide R GHJ . PT-OP-J Posture/Palpation/Skin Start: 10/07/22 13:25 Freq: Status: Active Protocol: Document 10/07/22 13:26 ES (Rec: 10/07/22 15:17 ES [id number]) Posture Evaluation Position Standing Head/C-Spine Posture Side Bent Left Shoulder Posture Neutral Scapula Posture (R) Depressed Arm Posture (L) Neutral,(R) Neutral PT-OP-K Range of Motion Start: 10/07/22 13:25 Freq: Status: Active Protocol: Document 10/07/22 13:26 ES (Rec: 10/07/22 15:17 ES [id number]) Shoulder Goniometric Range of Motion Shoulder Left Active Shoulder ROM WFL Yes Testing Position Standing Internal Rotation Behind Back (text) L1 Comments ER behind head to T3 Right Active Testing Position Standing Internal Rotation Behind Back (text) L5 Comments ER hand behind head to T1 Flexion and abduction AROM = 90% of R L side other than IR Pain with flexion, abduction, ER, and IR; decreased pain with flexion and abduction with manual GHJ caudal glide applied. PT-OP-L Special Tests Start: 10/07/22 13:25 Freq: Status: Active Protocol: Document 10/07/22 13:26 ES (Rec: 10/07/22 15:17 ES [id number]) Special Tests Shoulder Special Tests Neer Impingement Test Results Positive R Rivera Dominguez Impingement Test Results Positive R Empty Can Test Results Positive R Drop Arm Rotator Cuff Test Results Positive for pain R PT-OP-M Strength Start: 10/07/22 13:25 Freq: Status: Active Protocol: Document 10/07/22 13:26 ES (Rec: 10/07/22 15:17 ES [id number]) Shoulder Strength Shoulder Manual Muscle Testing Left External Rotation 5 Normal Internal Rotation 5 Normal Right External Rotation 4- Good- Internal Rotation 4- Good- Comments Pain with RC strength testing; decreased pain when GHJ caudal glide applied manually. PT-OP-Q Treatments Start: 10/07/22 13:25 Freq: Status: Active Protocol: Document 12/02/22 14:48 AMB (Rec: 12/02/22 16:16 AMB [id number]) Therapeutic Exercises Standing Exercises Towel IR stretch Side right Reps/Minutes 3x30s Comments encouraged pt not not force into pain, ease into stretch 1 Standing Exercise Name pec stretch Reps/Minutes 30x2 Comments gentle Manual Therapy Treatment Soft Tissue Mobilization 1 Body Location R scap-hum mm's, post deltoid Mobilization Type Myofascial Release,Strumming, Sustained Pressure,Trigger Point Release Intensity/Depth Moderate Body Position Supine, sidelying PT-OP-R Modalities Start: 10/07/22 13:25 Freq: Status: Active Protocol: Document 12/02/22 16:25 AMB (Rec: 12/02/22 16:25 AMB [id number]) Ultrasound Therapy Treatment R shoulder Treatment Duration (minutes) 8 Patient Position Supine Coupling Medium Ultrasound Gel PT-OP-T Assessment and Plan Start: 10/07/22 13:25 Freq: Status: Active Protocol: Document 12/02/22 14:48 AMB (Rec: 12/02/22 16:16 AMB [id number]) Physical Therapy Assessment Goals Four Impairment ROM/strength/function [employer] Goal (LTG) Patient will be independent with HEP for ROM and strength. LTG Duration 8 weeks 01/20 Three Impairment Function Jail Goal (LTG) Patient will have a reduction in QuickDASH score to 38.5 or less indicating clinically significant improvement in function. LTG Duration 8 weeks 01/20 Two Impairment Weakness Short Term Goal (STG) Patient will demonstrate increased R shoulder IR/ER strength to 4+/5 without increased pain to improve ability to use dominant RUE for ADL's. 7:18: pain with hair care, walking the dog, STG Duration 4 weeks 12/23 One Impairment ROM Short Term Goal (STG) Patient will demonstrate increased R shoulder functional ER ROM to T3 and functional IR ROM to L3 to improve ability to get dressed and bathe. Progressing: pain with hair care, bathing improving STG Duration 4 weeks Assessment Summary Assessment Bharati has completed 5 visits of physical therapy, ROM is improving, but continues to have pain wiht ADLs including hair care. 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 Does report mother needs help with transfers, but pt is unable to assist when mother falls, needs to call paramedics. Discussed continuing with HEP, will need to continue to progress strengthening, would recommend re-evaluating stretching exercises at next visit, but due to pt being late and meeting new therapist , not done at this session. Would benefit from continued physical therapy for progression of exercises and strengthening. Physical Therapy Plan Frequency and Duration Frequency of Treatment 1x/Week Duration of treatment (weeks) 8 Plan of Care Start Date 12/02/22 Plan of Care End Date 01/27/23 Therapeutic Interventions Therapeutic Interventions Home Exercise Program,Joint Mobilizations,Manual Therapy, Neuromuscular Re-education, Patient/Caregiver Education, Self-Care/Home Management,Soft Tissue Mobilization,Taping, Therapeutic Activities, Therapeutic Exercises Modalities Cold Pack/Ice Massage,Electric Stimulation,Hot Packs, Ultrasound Next Visit Focus/Plan Next Note Type Treatment Note Next Visit Plan Progress RC strength, continue working on IR ROM/posterior capsule length.
--- NOTE | 2022-12-02 14:00 | PT.OPPOC ---
Physical, Occupational & Speech Therapy At [facility] Current Diagnoses Other chronic pain (12/02/22) Pain in right shoulder (12/02/22) Visit Care Team Role Provider Type Dae Rojas MD Other Providers Physician Specialty: Oncology Address: [address] [place] [address], [id number] Email: [email or web address] Jose Ann MD Attending Provider Physician Family Provider Primary Care Provider Referring Provider Specialty: Internal Medicine Address: [address] [place] [address], [address], [place], [address] Email: [email or web address] Plan Of Care PT-OP-T Assessment and Plan Start: 10/07/22 13:25 Freq: Status: Active Protocol: Document 12/02/22 14:48 AMB (Rec: 12/02/22 16:16 AMB [id number]) Physical Therapy Assessment Goals Four Impairment ROM/strength/function Education Manager Goal (LTG) Patient will be independent with HEP for ROM and strength. LTG Duration 8 weeks 01/20 Three Impairment Function Education Manager Goal (LTG) Patient will have a reduction in QuickDASH score to 38.5 or less indicating clinically significant improvement in function. LTG Duration 8 weeks 01/20 Two Impairment Weakness Short Term Goal (STG) Patient will demonstrate increased R shoulder IR/ER strength to 4+/5 without increased pain to improve ability to use dominant RUE for ADL's. 7:18: pain with hair care, walking the dog, STG Duration 4 weeks 12/23 One Impairment ROM Short Term Goal (STG) Patient will demonstrate increased R shoulder functional ER ROM to T3 and functional IR ROM to L3 to improve ability to get dressed and bathe. Progressing: pain with hair care, bathing improving STG Duration 4 weeks Assessment Summary Assessment Bharati has completed 5 visits of physical therapy, ROM is improving, but continues to have pain wiht ADLs including hair care. 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 Does report mother needs help with transfers, but pt is unable to assist when mother falls, needs to call paramedics. Discussed continuing with HEP, will need to continue to progress strengthening, would recommend re-evaluating stretching exercises at next visit, but due to pt being late and meeting new therapist , not done at this session. Would benefit from continued physical therapy for progression of exercises and strengthening. Physical Therapy Plan Frequency and Duration Frequency of Treatment 1x/Week Duration of treatment (weeks) 8 Plan of Care Start Date 12/02/22 Plan of Care End Date 01/27/23 Therapeutic Interventions Therapeutic Interventions Home Exercise Program,Joint Mobilizations,Manual Therapy, Neuromuscular Re-education, Patient/Caregiver Education, Self-Care/Home Management,Soft Tissue Mobilization,Taping, Therapeutic Activities, Therapeutic Exercises Modalities Cold Pack/Ice Massage,Electric Stimulation,Hot Packs, Ultrasound Next Visit Focus/Plan Next Note Type Treatment Note Next Visit Plan Progress RC strength, continue working on IR ROM/posterior capsule length. Plan of Care Dates Plan of Care Start Date 12/02/22 Plan of Care End Date 01/27/23 Electronically Signed by: Barbara Lino, PT 12/08/22 0738 If you are in agreement with this Plan of Care, please return a signed and dated copy. I have reviewed this Plan of Care and certify that the skilled therapy services above are required to meet the patient?s needs. Physician Signature Date Printed Name and Credentials Clinical Instructor Signature Printed Name and Credentials
--- NOTE | 2022-12-02 14:53 | PT.OTN ---
Current Diagnoses Other chronic pain (12/02/22) Pain in right shoulder (12/02/22) Physical Therapy Treatment Note PT-OP-A Visit Information Start: 10/07/22 13:25 Freq: Status: Active Protocol: Document 12/02/22 14:48 AMB (Rec: 12/02/22 16:16 AMB [id number]) Out-Patient Physical Therapy Visit Information Visit Information Visit Type Treatment Note Visit Note pt arrived 15 min late Visit Start Time 14:45 Visit Stop Time 15:15 Total Visit Minutes 30 Visit Number 10/08 PT-OP-B Current Condition Start: 10/07/22 13:25 Freq: Status: Active Protocol: Document 10/07/22 13:26 ES (Rec: 10/07/22 15:17 ES [id number]) Current Condition History of Current Condition Onset Date April 2021 Current Complaints R shoulder and arm pain History of Current Condition Patient has a hx of multiple surgeries in the past 3 years, including axillary lymph node removal B, B mastectomy and reconstruction surgery. Ever since having her portacath removed from R chest, she has been having pain in the R shoulder. Has had x-ray and her surgeon has done some tests and has been told that her RC is fine. Patient has a hx of RCR R side several years ago. 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 Prior Treatments and Tests X-rays were negative. Has had some short massage sessions which helped temporarily. Treatment Goals Patient/Caregiver Goals To be able to do her ADL's with less pain. PT-OP-C Subjective Start: 10/07/22 13:25 Freq: Status: Active Protocol: Document 12/02/22 14:48 AMB (Rec: 12/02/22 16:16 AMB [id number]) OP-PT Subjective Patient Comments Patient Comments Patient reports continued pain with hair care, is doing exercises, IR stretch painful. PT-OP-F Manual Assessment Start: 10/07/22 13:25 Freq: Status: Active Protocol: Document 10/07/22 13:26 ES (Rec: 10/07/22 15:17 ES [id number]) Manual Assessments Soft Tissue Assessment Soft Tissue Mobility Assessment Scarring noted in chest, axilla, top of shoulder all with good mobility, non-tender . Increased muscle tension noted in R upper trap, pec major. Joint Mobility Assessment Joint Mobility Assessment Decreased inferior glide R GHJ . PT-OP-J Posture/Palpation/Skin Start: 10/07/22 13:25 Freq: Status: Active Protocol: Document 10/07/22 13:26 ES (Rec: 10/07/22 15:17 ES [id number]) Posture Evaluation Position Standing Head/C-Spine Posture Side Bent Left Shoulder Posture Neutral Scapula Posture (R) Depressed Arm Posture (L) Neutral,(R) Neutral PT-OP-K Range of Motion Start: 10/07/22 13:25 Freq: Status: Active Protocol: Document 10/07/22 13:26 ES (Rec: 10/07/22 15:17 ES [id number]) Shoulder Goniometric Range of Motion Shoulder Left Active Shoulder ROM WFL Yes Testing Position Standing Internal Rotation Behind Back (text) L1 Comments ER behind head to T3 Right Active Testing Position Standing Internal Rotation Behind Back (text) L5 Comments ER hand behind head to T1 Flexion and abduction AROM = 90% of R L side other than IR Pain with flexion, abduction, ER, and IR; decreased pain with flexion and abduction with manual GHJ caudal glide applied. PT-OP-L Special Tests Start: 10/07/22 13:25 Freq: Status: Active Protocol: Document 10/07/22 13:26 ES (Rec: 10/07/22 15:17 ES [id number]) Special Tests Shoulder Special Tests Neer Impingement Test Results Positive R Rivera Dominguez Impingement Test Results Positive R Empty Can Test Results Positive R Drop Arm Rotator Cuff Test Results Positive for pain R PT-OP-M Strength Start: 10/07/22 13:25 Freq: Status: Active Protocol: Document 10/07/22 13:26 ES (Rec: 10/07/22 15:17 ES [id number]) Shoulder Strength Shoulder Manual Muscle Testing Left External Rotation 5 Normal Internal Rotation 5 Normal Right External Rotation 4- Good- Internal Rotation 4- Good- Comments Pain with RC strength testing; decreased pain when GHJ caudal glide applied manually. PT-OP-Q Treatments Start: 10/07/22 13:25 Freq: Status: Active Protocol: Document 12/02/22 14:48 AMB (Rec: 12/02/22 16:16 AMB [id number]) Therapeutic Exercises Standing Exercises Towel IR stretch Side right Reps/Minutes 3x30s Comments encouraged pt not not force into pain, ease into stretch 1 Standing Exercise Name pec stretch Reps/Minutes 30x2 Comments gentle Manual Therapy Treatment Soft Tissue Mobilization 1 Body Location R scap-hum mm's, post deltoid Mobilization Type Myofascial Release,Strumming, Sustained Pressure,Trigger Point Release Intensity/Depth Moderate Body Position Supine, sidelying PT-OP-R Modalities Start: 10/07/22 13:25 Freq: Status: Active Protocol: Document 12/02/22 16:25 AMB (Rec: 12/02/22 16:25 AMB [id number]) Ultrasound Therapy Treatment R shoulder Treatment Duration (minutes) 8 Patient Position Supine Coupling Medium Ultrasound Gel PT-OP-T Assessment and Plan Start: 10/07/22 13:25 Freq: Status: Active Protocol: Document 12/02/22 14:48 AMB (Rec: 12/02/22 16:16 AMB [id number]) Physical Therapy Assessment Goals Four Impairment ROM/strength/function General Engineering Teacher Goal (LTG) Patient will be independent with HEP for ROM and strength. LTG Duration 8 weeks 01/20 Three Impairment Function Assisted Goal (LTG) Patient will have a reduction in QuickDASH score to 38.5 or less indicating clinically significant improvement in function. LTG Duration 8 weeks 01/20 Two Impairment Weakness Short Term Goal (STG) Patient will demonstrate increased R shoulder IR/ER strength to 4+/5 without increased pain to improve ability to use dominant RUE for ADL's. 7:18: pain with hair care, walking the dog, STG Duration 4 weeks 12/23 One Impairment ROM Short Term Goal (STG) Patient will demonstrate increased R shoulder functional ER ROM to T3 and functional IR ROM to L3 to improve ability to get dressed and bathe. Progressing: pain with hair care, bathing improving STG Duration 4 weeks Assessment Summary Assessment Bharati has completed 5 visits of physical therapy, ROM is improving, but continues to have pain wiht ADLs including hair care. 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 Does report mother needs help with transfers, but pt is unable to assist when mother falls, needs to call paramedics. Discussed continuing with HEP, will need to continue to progress strengthening, would recommend re-evaluating stretching exercises at next visit, but due to pt being late and meeting new therapist , not done at this session. Would benefit from continued physical therapy for progression of exercises and strengthening. Physical Therapy Plan Frequency and Duration Frequency of Treatment 1x/Week Duration of treatment (weeks) 8 Plan of Care Start Date 12/02/22 Plan of Care End Date 01/27/23 Therapeutic Interventions Therapeutic Interventions Home Exercise Program,Joint Mobilizations,Manual Therapy, Neuromuscular Re-education, Patient/Caregiver Education, Self-Care/Home Management,Soft Tissue Mobilization,Taping, Therapeutic Activities, Therapeutic Exercises Modalities Cold Pack/Ice Massage,Electric Stimulation,Hot Packs, Ultrasound Next Visit Focus/Plan Next Note Type Treatment Note Next Visit Plan Progress RC strength, continue working on IR ROM/posterior capsule length.
--- NOTE | 2022-12-30 11:23 | PT.OTN ---
Current Diagnoses Other chronic pain (12/30/22) Pain in right shoulder (12/30/22) Physical Therapy Treatment Note PT-OP-A Visit Information Start: 10/07/22 13:25 Freq: Status: Active Protocol: Document 12/30/22 11:16 ED (Rec: 12/30/22 11:23 ED [id number]) Out-Patient Physical Therapy Visit Information Visit Information Visit Type Treatment Note Visit Start Time 10:45 Visit Stop Time 11:15 Total Visit Minutes 30 Visit Number 11/08 PT-OP-B Current Condition Start: 10/07/22 13:25 Freq: Status: Active Protocol: Document 10/07/22 13:26 ES (Rec: 10/07/22 15:17 ES [id number]) Current Condition History of Current Condition Onset Date April 2021 Current Complaints R shoulder and arm pain History of Current Condition Patient has a hx of multiple surgeries in the past 3 years, including axillary lymph node removal B, B mastectomy and reconstruction surgery. Ever since having her portacath removed from R chest, she has been having pain in the R shoulder. Has had x-ray and her surgeon has done some tests and has been told that her RC is fine. Patient has a hx of RCR R side several years ago. 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 Prior Treatments and Tests X-rays were negative. Has had some short massage sessions which helped temporarily. Treatment Goals Patient/Caregiver Goals To be able to do her ADL's with less pain. PT-OP-C Subjective Start: 10/07/22 13:25 Freq: Status: Active Protocol: Document 12/30/22 11:16 ED (Rec: 12/30/22 11:23 ED [id number]) OP-PT Subjective Patient Comments Patient Comments Pt states that her mother so now she will be able to come to PT more frequently. States her R shoulder always hurts but she played pickleball a few weeks ago and that seemed to help it . PT-OP-F Manual Assessment Start: 10/07/22 13:25 Freq: Status: Active Protocol: Document 10/07/22 13:26 ES (Rec: 10/07/22 15:17 ES [id number]) Manual Assessments Soft Tissue Assessment Soft Tissue Mobility Assessment Scarring noted in chest, axilla, top of shoulder all with good mobility, non-tender . Increased muscle tension noted in R upper trap, pec major. Joint Mobility Assessment Joint Mobility Assessment Decreased inferior glide R GHJ . PT-OP-J Posture/Palpation/Skin Start: 10/07/22 13:25 Freq: Status: Active Protocol: Document 10/07/22 13:26 ES (Rec: 10/07/22 15:17 ES [id number]) Posture Evaluation Position Standing Head/C-Spine Posture Side Bent Left Shoulder Posture Neutral Scapula Posture (R) Depressed Arm Posture (L) Neutral,(R) Neutral PT-OP-K Range of Motion Start: 10/07/22 13:25 Freq: Status: Active Protocol: Document 10/07/22 13:26 ES (Rec: 10/07/22 15:17 ES [id number]) Shoulder Goniometric Range of Motion Shoulder Left Active Shoulder ROM WFL Yes Testing Position Standing Internal Rotation Behind Back (text) L1 Comments ER behind head to T3 Right Active Testing Position Standing Internal Rotation Behind Back (text) L5 Comments ER hand behind head to T1 Flexion and abduction AROM = 90% of R L side other than IR Pain with flexion, abduction, ER, and IR; decreased pain with flexion and abduction with manual GHJ caudal glide applied. PT-OP-L Special Tests Start: 10/07/22 13:25 Freq: Status: Active Protocol: Document 10/07/22 13:26 ES (Rec: 10/07/22 15:17 ES [id number]) Special Tests Shoulder Special Tests Neer Impingement Test Results Positive R Rivera Dominguez Impingement Test Results Positive R Empty Can Test Results Positive R Drop Arm Rotator Cuff Test Results Positive for pain R PT-OP-M Strength Start: 10/07/22 13:25 Freq: Status: Active Protocol: Document 10/07/22 13:26 ES (Rec: 10/07/22 15:17 ES [id number]) Shoulder Strength Shoulder Manual Muscle Testing Left External Rotation 5 Normal Internal Rotation 5 Normal Right External Rotation 4- Good- Internal Rotation 4- Good- Comments Pain with RC strength testing; decreased pain when GHJ caudal glide applied manually. PT-OP-Q Treatments Start: 10/07/22 13:25 Freq: Status: Active Protocol: Document 12/30/22 11:16 ED (Rec: 12/30/22 11:23 ED [id number]) Therapeutic Exercises Supine Exercises Shoulder IR/ER Resistance peach Reps/Minutes 2x20 Sitting Exercises pulleys Reps/Minutes x20 flex/abd Standing Exercises bicep curl Standing Exercise Name GH extended Resistance 2# Reps/Minutes 1x20 row Standing Exercise Name cable row Resistance L2 Reps/Minutes [id number] lateral/fwd raises Resistance 2# Reps/Minutes [id number] Other Exercises plank Other Exercise Name shoulder tapping Reps/Minutes 1x10/arm Comments on plinth c/ shoulder taps PT-OP-R Modalities Start: 10/07/22 13:25 Freq: Status: Active Protocol: Document 12/02/22 16:25 AMB (Rec: 12/02/22 16:25 AMB [id number]) Ultrasound Therapy Treatment R shoulder Treatment Duration (minutes) 8 Patient Position Supine Coupling Medium Ultrasound Gel PT-OP-T Assessment and Plan Start: 10/07/22 13:25 Freq: Status: Active Protocol: Document 12/30/22 11:16 ED (Rec: 12/30/22 11:23 ED [id number]) Physical Therapy Assessment Goals Four Impairment ROM/strength/function Medical Radiation Therapist Goal (LTG) Patient will be independent with HEP for ROM and strength. LTG Duration 8 weeks 01/20 Three Impairment Function Medical Radiation Therapist Goal (LTG) Patient will have a reduction in QuickDASH score to 38.5 or less indicating clinically significant improvement in function. LTG Duration 8 weeks 01/20 Two Impairment Weakness Short Term Goal (STG) Patient will demonstrate increased R shoulder IR/ER strength to 4+/5 without increased pain to improve ability to use dominant RUE for ADL's. 7:18: pain with hair care, walking the dog, STG Duration 4 weeks 12/23 One Impairment ROM Short Term Goal (STG) Patient will demonstrate increased R shoulder functional ER ROM to T3 and functional IR ROM to L3 to improve ability to get dressed and bathe. Progressing: pain with hair care, bathing improving STG Duration 4 weeks Assessment Summary Assessment Pt demonstrated essentially equal ROM of L and R shoulders as observed on pulleys and wall slides. Pt performed wide array of exercises focusing on different soft tissue of shoulder c/ minimal discomfort throughout. Pt stated that the pain was tolerable throughout session; pain was typically located anterior near proximal biceps region. Discussed c/ patient having further PT visits and creating a structured routine that she can perform. Physical Therapy Plan Frequency and Duration Frequency of Treatment 1-2x/week Duration of treatment (weeks) 8 Plan of Care Start Date 12/02/22 Plan of Care End Date 01/27/23 Next Visit Focus/Plan Next Note Type Treatment Note Next Visit Plan UBE, wall slides, row, ER, IR, bicep curl, scaption, push, plank
--- NOTE | 2023-01-07 09:42 | PT.OTN ---
Current Diagnoses Other chronic pain (01/07/23) Pain in right shoulder (01/07/23) Physical Therapy Treatment Note PT-OP-A Visit Information Start: 10/07/22 13:25 Freq: Status: Active Protocol: Document 01/07/23 09:37 ED (Rec: 01/07/23 09:42 ED [id number]) Out-Patient Physical Therapy Visit Information Visit Information Visit Type Treatment Note Visit Note POC expires 01/30 Visit Start Time 09:00 Visit Stop Time 09:40 Total Visit Minutes 40 Visit Number 12/08 PT-OP-B Current Condition Start: 10/07/22 13:25 Freq: Status: Active Protocol: Document 10/07/22 13:26 ES (Rec: 10/07/22 15:17 ES [id number]) Current Condition History of Current Condition Onset Date April 2021 Current Complaints R shoulder and arm pain History of Current Condition Patient has a hx of multiple surgeries in the past 3 years, including axillary lymph node removal B, B mastectomy and reconstruction surgery. Ever since having her portacath removed from R chest, she has been having pain in the R shoulder. Has had x-ray and her surgeon has done some tests and has been told that her RC is fine. Patient has a hx of RCR R side several years ago. 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 Prior Treatments and Tests X-rays were negative. Has had some short massage sessions which helped temporarily. Treatment Goals Patient/Caregiver Goals To be able to do her ADL's with less pain. PT-OP-C Subjective Start: 10/07/22 13:25 Freq: Status: Active Protocol: Document 01/07/23 09:37 ED (Rec: 01/07/23 09:42 ED [id number]) OP-PT Subjective Patient Comments Patient Comments Pt states that she thinks she would like to continue c/ physical therapy instead of doing just home exercises. PT-OP-F Manual Assessment Start: 10/07/22 13:25 Freq: Status: Active Protocol: Document 10/07/22 13:26 ES (Rec: 10/07/22 15:17 ES [id number]) Manual Assessments Soft Tissue Assessment Soft Tissue Mobility Assessment Scarring noted in chest, axilla, top of shoulder all with good mobility, non-tender . Increased muscle tension noted in R upper trap, pec major. Joint Mobility Assessment Joint Mobility Assessment Decreased inferior glide R GHJ . PT-OP-J Posture/Palpation/Skin Start: 10/07/22 13:25 Freq: Status: Active Protocol: Document 10/07/22 13:26 ES (Rec: 10/07/22 15:17 ES [id number]) Posture Evaluation Position Standing Head/C-Spine Posture Side Bent Left Shoulder Posture Neutral Scapula Posture (R) Depressed Arm Posture (L) Neutral,(R) Neutral PT-OP-K Range of Motion Start: 10/07/22 13:25 Freq: Status: Active Protocol: Document 10/07/22 13:26 ES (Rec: 10/07/22 15:17 ES [id number]) Shoulder Goniometric Range of Motion Shoulder Left Active Shoulder ROM WFL Yes Testing Position Standing Internal Rotation Behind Back (text) L1 Comments ER behind head to T3 Right Active Testing Position Standing Internal Rotation Behind Back (text) L5 Comments ER hand behind head to T1 Flexion and abduction AROM = 90% of R L side other than IR Pain with flexion, abduction, ER, and IR; decreased pain with flexion and abduction with manual GHJ caudal glide applied. PT-OP-L Special Tests Start: 10/07/22 13:25 Freq: Status: Active Protocol: Document 10/07/22 13:26 ES (Rec: 10/07/22 15:17 ES [id number]) Special Tests Shoulder Special Tests Neer Impingement Test Results Positive R Rivera Dominguez Impingement Test Results Positive R Empty Can Test Results Positive R Drop Arm Rotator Cuff Test Results Positive for pain R PT-OP-M Strength Start: 10/07/22 13:25 Freq: Status: Active Protocol: Document 10/07/22 13:26 ES (Rec: 10/07/22 15:17 ES [id number]) Shoulder Strength Shoulder Manual Muscle Testing Left External Rotation 5 Normal Internal Rotation 5 Normal Right External Rotation 4- Good- Internal Rotation 4- Good- Comments Pain with RC strength testing; decreased pain when GHJ caudal glide applied manually. PT-OP-Q Treatments Start: 10/07/22 13:25 Freq: Status: Active Protocol: Document 01/07/23 09:37 ED (Rec: 01/07/23 09:42 ED [id number]) Cardio Equipment Upper Body Ergometer (UBE) Duration (Minutes) 5 Therapeutic Exercises Prone Exercises SAPD Side bilateral Resistance 5# Reps/Minutes [id number] row Side bilateral Resistance 10# Reps/Minutes [id number] Sidelying Exercises ER Resistance 2# Reps/Minutes 2x15 Standing Exercises wall slide Standing Exercise Name SA wall slide Equipment Used foam roller Reps/Minutes 2x20 bicep focused fwd raise Resistance 3# Reps/Minutes 1x15 bicep curl Resistance 5# Reps/Minutes 2x15 lateral/fwd raises Resistance 2# Reps/Minutes 1s23-03 PT-OP-R Modalities Start: 10/07/22 13:25 Freq: Status: Active Protocol: Document 12/02/22 16:25 AMB (Rec: 12/02/22 16:25 AMB [id number]) Ultrasound Therapy Treatment R shoulder Treatment Duration (minutes) 8 Patient Position Supine Coupling Medium Ultrasound Gel PT-OP-T Assessment and Plan Start: 10/07/22 13:25 Freq: Status: Active Protocol: Document 01/07/23 09:37 ED (Rec: 01/07/23 09:42 ED [id number]) Physical Therapy Assessment Goals Four Impairment ROM/strength/function Fpc Goal (LTG) Patient will be independent with HEP for ROM and strength. LTG Duration 8 weeks 01/20 Three Impairment Function Fpc Goal (LTG) Patient will have a reduction in QuickDASH score to 38.5 or less indicating clinically significant improvement in function. LTG Duration 8 weeks 01/20 Two Impairment Weakness Short Term Goal (STG) Patient will demonstrate increased R shoulder IR/ER strength to 4+/5 without increased pain to improve ability to use dominant RUE for ADL's. 7:18: pain with hair care, walking the dog, STG Duration 4 weeks 12/23 One Impairment ROM Short Term Goal (STG) Patient will demonstrate increased R shoulder functional ER ROM to T3 and functional IR ROM to L3 to improve ability to get dressed and bathe. Progressing: pain with hair care, bathing improving STG Duration 4 weeks Assessment Summary Assessment Pt tolerated treatment very well. Exercises were focused on periscapular stimulus in all planes of motion. Pt consistently reported proximal biceps irritation during the exercises but at a very low level. Physical Therapy Plan Frequency and Duration Frequency of Treatment 1-2x/week Duration of treatment (weeks) 8 Plan of Care Start Date 12/02/22 Plan of Care End Date 01/27/23
--- NOTE | 2023-01-16 16:03 | PT.OTN ---
Current Diagnoses Other chronic pain (01/16/23) Pain in right shoulder (01/16/23) Physical Therapy Treatment Note PT-OP-A Visit Information Start: 10/07/22 13:25 Freq: Status: Active Protocol: Document 01/16/23 15:55 ED (Rec: 01/16/23 16:03 ED [id number]) Out-Patient Physical Therapy Visit Information Visit Information Visit Type Progress Note Visit Note POC ends 01/30 Visit Start Time 15:15 Visit Stop Time 14:00 Total Visit Minutes 45 Visit Number 01/08 PT-OP-B Current Condition Start: 10/07/22 13:25 Freq: Status: Active Protocol: Document 01/16/23 15:55 ED (Rec: 01/16/23 16:03 ED [id number]) Current Condition History of Current Condition Onset Date April 2021 Current Complaints R shoulder and arm pain History of Current Condition Patient has a hx of multiple surgeries in the past 3 years, including axillary lymph node removal B, B mastectomy and reconstruction surgery. Ever since having her portacath removed from R chest, she has been having pain in the R shoulder. Has had x-ray and her surgeon has done some tests and has been told that her RC is fine. Patient has a hx of RCR R side several years ago. 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 Prior Treatments and Tests X-rays were negative. Has had some short massage sessions which helped temporarily. PT-OP-C Subjective Start: 10/07/22 13:25 Freq: Status: Active Protocol: Document 01/16/23 15:55 ED (Rec: 01/16/23 16:03 ED [id number]) OP-PT Subjective Patient Comments Patient Comments Pt is now able to come to PT more regularly now that her mom has passed and she is able to spend more time away from being a caregiver. Pt would like to continue c/ PT to address her R shoulder pain. Patient Questionnaires Quick Dash- Upper Extremity Quick Dash UE Score 47.7 / 100 = 47.7 % Quick Dash UE Impairment 40 to 59% Impaired (Score 40- 59) PT-OP-F Manual Assessment Start: 10/07/22 13:25 Freq: Status: Active Protocol: Document 10/07/22 13:26 ES (Rec: 10/07/22 15:17 ES [id number]) Manual Assessments Soft Tissue Assessment Soft Tissue Mobility Assessment Scarring noted in chest, axilla, top of shoulder all with good mobility, non-tender . Increased muscle tension noted in R upper trap, pec major. Joint Mobility Assessment Joint Mobility Assessment Decreased inferior glide R GHJ . PT-OP-J Posture/Palpation/Skin Start: 10/07/22 13:25 Freq: Status: Active Protocol: Document 10/07/22 13:26 ES (Rec: 10/07/22 15:17 ES [id number]) Posture Evaluation Position Standing Head/C-Spine Posture Side Bent Left Shoulder Posture Neutral Scapula Posture (R) Depressed Arm Posture (L) Neutral,(R) Neutral PT-OP-K Range of Motion Start: 10/07/22 13:25 Freq: Status: Active Protocol: Document 10/07/22 13:26 ES (Rec: 10/07/22 15:17 ES [id number]) Shoulder Goniometric Range of Motion Shoulder Left Active Shoulder ROM WFL Yes Testing Position Standing Internal Rotation Behind Back (text) L1 Comments ER behind head to T3 Right Active Testing Position Standing Internal Rotation Behind Back (text) L5 Comments ER hand behind head to T1 Flexion and abduction AROM = 90% of R L side other than IR Pain with flexion, abduction, ER, and IR; decreased pain with flexion and abduction with manual GHJ caudal glide applied. PT-OP-L Special Tests Start: 10/07/22 13:25 Freq: Status: Active Protocol: Document 10/07/22 13:26 ES (Rec: 10/07/22 15:17 ES [id number]) Special Tests Shoulder Special Tests Neer Impingement Test Results Positive R Rivera Dominguez Impingement Test Results Positive R Empty Can Test Results Positive R Drop Arm Rotator Cuff Test Results Positive for pain R PT-OP-M Strength Start: 10/07/22 13:25 Freq: Status: Active Protocol: Document 10/07/22 13:26 ES (Rec: 10/07/22 15:17 ES [id number]) Shoulder Strength Shoulder Manual Muscle Testing Left External Rotation 5 Normal Internal Rotation 5 Normal Right External Rotation 4- Good- Internal Rotation 4- Good- Comments Pain with RC strength testing; decreased pain when GHJ caudal glide applied manually. PT-OP-Q Treatments Start: 10/07/22 13:25 Freq: Status: Active Protocol: Document 09/01/23 15:55 ED (Rec: 01/16/23 16:03 ED [id number]) Therapeutic Exercises Supine Exercises Shoulder IR/ER Resistance manual resistance Reps/Minutes 2x20 Prone Exercises horizontal abduction Resistance 1 Reps/Minutes 1x12 Sidelying Exercises forward flexion Equipment Used 2# Reps/Minutes x12 ER Resistance 2# Reps/Minutes 2x15 Sitting Exercises pulleys Reps/Minutes x20 flex/abd Standing Exercises high row Resistance blue band Equipment Used 3x15 SAPD Resistance blue band Reps/Minutes 3x15 tricep Standing Exercise Name tricep ext @ 90 FF Resistance Blue band Reps/Minutes 3x12 lateral/fwd raises Resistance 2# Reps/Minutes 2k55-26 PT-OP-R Modalities Start: 10/07/22 13:25 Freq: Status: Active Protocol: Document 12/02/22 16:25 AMB (Rec: 12/02/22 16:25 AMB [id number]) Ultrasound Therapy Treatment R shoulder Treatment Duration (minutes) 8 Patient Position Supine Coupling Medium Ultrasound Gel PT-OP-T Assessment and Plan Start: 10/07/22 13:25 Freq: Status: Active Protocol: Document 01/16/23 15:55 ED (Rec: 01/16/23 16:03 ED [id number]) Physical Therapy Assessment Goals Four Impairment ROM/strength/function Retirement Goal (LTG) Patient will be independent with HEP for ROM and strength. LTG Duration 8 weeks 01/20 Three Impairment Function Assistant Professor Of Art Goal (LTG) Patient will have a reduction in QuickDASH score to 38.5 or less indicating clinically significant improvement in function. LTG Duration 8 weeks 01/20 Two Impairment Weakness Short Term Goal (STG) Patient will demonstrate increased R shoulder IR/ER strength to 4+/5 without increased pain to improve ability to use dominant RUE for ADL's. 7:18: pain with hair care, walking the dog, STG Duration 4 weeks 88 One Impairment ROM Short Term Goal (STG) Patient will demonstrate increased R shoulder functional ER ROM to T3 and functional IR ROM to L3 to improve ability to get dressed and bathe. 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 Pt had modest improvement in QuickDash disability measure .She continues to have rotator cuff related shoulder pain that should improve with regular adherence to a structured exercise program. Physical Therapy Plan Frequency and Duration Frequency of Treatment 1-2x/week Duration of treatment (weeks) 8 Plan of Care Start Date 12/02/22 Plan of Care End Date 04/16/23 Therapeutic Interventions Therapeutic Interventions Home Exercise Program,Joint Mobilizations,Manual Therapy, Neuromuscular Re-education, Patient/Caregiver Education, Self-Care/Home Management, Taping,Therapeutic Activities, Therapeutic Exercises Next Visit Focus/Plan Next Note Type Treatment Note Next Visit Plan UBE, wall slides, row, ER, IR, bicep curl, scaption, push, plank
--- NOTE | 2023-01-16 16:03 | PT.OPPOC ---
Physical, Occupational & Speech Therapy At Current Diagnoses Other chronic pain (01/16/23) Pain in right shoulder (01/16/23) Visit Care Team Role Provider Type Dae Rojas MD Other Providers Physician Specialty: Oncology Address: [address], [place], [address] Email: [email or web address] Jose Ann MD Attending Provider Physician Family Provider Primary Care Provider Referring Provider Specialty: Internal Medicine Address: [address] [place] [address], [address], [place], [address] Email: [email or web address] Plan Of Care PT-OP-T Assessment and Plan Start: 10/07/22 13:25 Freq: Status: Active Protocol: Document 01/16/23 15:55 ED (Rec: 01/16/23 16:03 ED [id number]) Physical Therapy Assessment Goals Four Impairment ROM/strength/function Supervisor [employer] Goal (LTG) Patient will be independent with HEP for ROM and strength. LTG Duration 8 weeks 01/20 Three Impairment Function Supervisor [employer] Goal (LTG) Patient will have a reduction in QuickDASH score to 38.5 or less indicating clinically significant improvement in function. LTG Duration 8 weeks 01/20 Two Impairment Weakness Short Term Goal (STG) Patient will demonstrate increased R shoulder IR/ER strength to 4+/5 without increased pain to improve ability to use dominant RUE for ADL's. 7:18: pain with hair care, walking the dog, STG Duration 4 weeks 12/23 One Impairment ROM Short Term Goal (STG) Patient will demonstrate increased R shoulder functional ER ROM to T3 and functional IR ROM to L3 to improve ability to get dressed and bathe. 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 Pt had modest improvement in QuickDash disability measure .She continues to have rotator cuff related shoulder pain that should improve with regular adherence to a structured exercise program. Physical Therapy Plan Frequency and Duration Frequency of Treatment 1-2x/week Duration of treatment (weeks) 8 Plan of Care Start Date 12/02/22 Plan of Care End Date 04/16/23 Therapeutic Interventions Therapeutic Interventions Home Exercise Program,Joint Mobilizations,Manual Therapy, Neuromuscular Re-education, Patient/Caregiver Education, Self-Care/Home Management, Taping,Therapeutic Activities, Therapeutic Exercises Next Visit Focus/Plan Next Note Type Treatment Note Next Visit Plan UBE, wall slides, row, ER, IR, bicep curl, scaption, push, plank Plan of Care Dates Plan of Care Start Date 12/02/22 Plan of Care End Date 04/16/23 Electronically Signed by: Deion Issa, PT 01/16/23 2101 If you are in agreement with this Plan of Care, please return a signed and dated copy. I have reviewed this Plan of Care and certify that the skilled therapy services above are required to meet the patient?s needs. Physician Signature Date Printed Name and Credentials Clinical Instructor Signature Printed Name and Credentials
--- NOTE | 2023-01-21 16:01 | PT.OTN ---
Current Diagnoses Other chronic pain (01/21/23) Pain in right shoulder (01/21/23) Physical Therapy Treatment Note PT-OP-A Visit Information Start: 10/07/22 13:25 Freq: Status: Active Protocol: Document 01/21/23 15:57 ED (Rec: 01/21/23 16:01 ED [id number]) Out-Patient Physical Therapy Visit Information Visit Information Visit Type Treatment Note Visit Start Time 15:15 Visit Stop Time 15:55 Total Visit Minutes 40 Visit Number 02/08 PT-OP-B Current Condition Start: 10/07/22 13:25 Freq: Status: Active Protocol: Document 01/16/23 15:55 ED (Rec: 01/16/23 16:03 ED [id number]) Current Condition History of Current Condition Onset Date April 2021 Current Complaints R shoulder and arm pain History of Current Condition Patient has a hx of multiple surgeries in the past 3 years, including axillary lymph node removal B, B mastectomy and reconstruction surgery. Ever since having her portacath removed from R chest, she has been having pain in the R shoulder. Has had x-ray and her surgeon has done some tests and has been told that her RC is fine. Patient has a hx of RCR R side several years ago. 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 Prior Treatments and Tests X-rays were negative. Has had some short massage sessions which helped temporarily. PT-OP-C Subjective Start: 10/07/22 13:25 Freq: Status: Active Protocol: Document 01/21/23 15:57 ED (Rec: 01/21/23 16:01 ED [id number]) OP-PT Subjective Patient Comments Patient Comments Pt states that she was a little sore in her shoulder but it was tolerable and not necessarily painful. PT-OP-F Manual Assessment Start: 10/07/22 13:25 Freq: Status: Active Protocol: Document 10/07/22 13:26 ES (Rec: 10/07/22 15:17 ES [id number]) Manual Assessments Soft Tissue Assessment Soft Tissue Mobility Assessment Scarring noted in chest, axilla, top of shoulder all with good mobility, non-tender . Increased muscle tension noted in R upper trap, pec major. Joint Mobility Assessment Joint Mobility Assessment Decreased inferior glide R GHJ . PT-OP-J Posture/Palpation/Skin Start: 10/07/22 13:25 Freq: Status: Active Protocol: Document 10/07/22 13:26 ES (Rec: 10/07/22 15:17 ES [id number]) Posture Evaluation Position Standing Head/C-Spine Posture Side Bent Left Shoulder Posture Neutral Scapula Posture (R) Depressed Arm Posture (L) Neutral,(R) Neutral PT-OP-K Range of Motion Start: 10/07/22 13:25 Freq: Status: Active Protocol: Document 10/07/22 13:26 ES (Rec: 10/07/22 15:17 ES [id number]) Shoulder Goniometric Range of Motion Shoulder Left Active Shoulder ROM WFL Yes Testing Position Standing Internal Rotation Behind Back (text) L1 Comments ER behind head to T3 Right Active Testing Position Standing Internal Rotation Behind Back (text) L5 Comments ER hand behind head to T1 Flexion and abduction AROM = 90% of R L side other than IR Pain with flexion, abduction, ER, and IR; decreased pain with flexion and abduction with manual GHJ caudal glide applied. PT-OP-L Special Tests Start: 10/07/22 13:25 Freq: Status: Active Protocol: Document 10/07/22 13:26 ES (Rec: 10/07/22 15:17 ES [id number]) Special Tests Shoulder Special Tests Neer Impingement Test Results Positive R Rivera Dominguez Impingement Test Results Positive R Empty Can Test Results Positive R Drop Arm Rotator Cuff Test Results Positive for pain R PT-OP-M Strength Start: 10/07/22 13:25 Freq: Status: Active Protocol: Document 10/07/22 13:26 ES (Rec: 10/07/22 15:17 ES [id number]) Shoulder Strength Shoulder Manual Muscle Testing Left External Rotation 5 Normal Internal Rotation 5 Normal Right External Rotation 4- Good- Internal Rotation 4- Good- Comments Pain with RC strength testing; decreased pain when GHJ caudal glide applied manually. PT-OP-Q Treatments Start: 10/07/22 13:25 Freq: Status: Active Protocol: Document 01/21/23 15:57 ED (Rec: 01/21/23 16:01 ED [id number]) Cardio Equipment Upper Body Ergometer (UBE) Duration (Minutes) 5 Therapeutic Exercises Prone Exercises horizontal abduction Resistance 1 Reps/Minutes 1x12 Sidelying Exercises forward flexion Equipment Used 2# Reps/Minutes x12 ER Resistance 2# Reps/Minutes 2x15 Comments @ 90 abduction on table Standing Exercises tricep Standing Exercise Name tricep ext @ 90 FF Resistance Blue band Reps/Minutes 3x12 bicep curl Resistance 5# Reps/Minutes 3x15 lateral/fwd raises Resistance 2# Reps/Minutes [id number] PT-OP-R Modalities Start: 10/07/22 13:25 Freq: Status: Active Protocol: Document 12/02/22 16:25 AMB (Rec: 12/02/22 16:25 AMB [id number]) Ultrasound Therapy Treatment R shoulder Treatment Duration (minutes) 8 Patient Position Supine Coupling Medium Ultrasound Gel PT-OP-T Assessment and Plan Start: 10/07/22 13:25 Freq: Status: Active Protocol: Document 01/21/23 15:57 ED (Rec: 01/21/23 16:01 ED [id number]) Physical Therapy Assessment Goals Four Impairment ROM/strength/function Chopper Operator Goal (LTG) Patient will be independent with HEP for ROM and strength. LTG Duration 8 weeks 01/20 Three Impairment Function Assisted Goal (LTG) Patient will have a reduction in QuickDASH score to 38.5 or less indicating clinically significant improvement in function. LTG Duration 8 weeks 01/20 Two Impairment Weakness Short Term Goal (STG) Patient will demonstrate increased R shoulder IR/ER strength to 4+/5 without increased pain to improve ability to use dominant RUE for ADL's. 7:18: pain with hair care, walking the dog, STG Duration 4 weeks 12/23 One Impairment ROM Short Term Goal (STG) Patient will demonstrate increased R shoulder functional ER ROM to T3 and functional IR ROM to L3 to improve ability to get dressed and bathe. Progressing: pain with hair care, bathing improving STG Duration 4 weeks Assessment Summary Assessment Pt tolerated treatment well which focused on muscle strengthening to shoulder girdle. Pt denied any pain during movements but seemed to feel more stress in bicep area during exercises that were not targeting biceps. Will continue to progress patient within her tolerance in shoulder girdle stimulus. Physical Therapy Plan Frequency and Duration Frequency of Treatment 1-2x/week Duration of treatment (weeks) 8 Plan of Care Start Date 12/02/22 Plan of Care End Date 04/16/23 Next Visit Focus/Plan Next Note Type Treatment Note Next Visit Plan UBE, FR wall slides, row, RS, ER, IR, bicep curl, scaption, push, plank
--- NOTE | 2023-01-29 15:50 | PT.OTN ---
Current Diagnoses Other chronic pain (01/29/23) Pain in right shoulder (01/29/23) Physical Therapy Treatment Note PT-OP-A Visit Information Start: 10/07/22 13:25 Freq: Status: Active Protocol: Document 01/29/23 15:47 ED (Rec: 01/29/23 15:50 ED [id number]) Out-Patient Physical Therapy Visit Information Visit Information Visit Type Treatment Note Visit Start Time 15:10 Visit Stop Time 15:50 Total Visit Minutes 40 Visit Number 03/10 PT-OP-B Current Condition Start: 10/07/22 13:25 Freq: Status: Active Protocol: Document 01/16/23 15:55 ED (Rec: 01/16/23 16:03 ED [id number]) Current Condition History of Current Condition Onset Date April 2021 Current Complaints R shoulder and arm pain History of Current Condition Patient has a hx of multiple surgeries in the past 3 years, including axillary lymph node removal B, B mastectomy and reconstruction surgery. Ever since having her portacath removed from R chest, she has been having pain in the R shoulder. Has had x-ray and her surgeon has done some tests and has been told that her RC is fine. Patient has a hx of RCR R side several years ago. 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 Prior Treatments and Tests X-rays were negative. Has had some short massage sessions which helped temporarily. PT-OP-C Subjective Start: 10/07/22 13:25 Freq: Status: Active Protocol: Document 01/29/23 15:47 ED (Rec: 01/29/23 15:50 ED [id number]) OP-PT Subjective Patient Comments Patient Comments Pt states that she feels like her arms are getting stronger and PT is really helping. PT-OP-F Manual Assessment Start: 10/07/22 13:25 Freq: Status: Active Protocol: Document 10/07/22 13:26 ES (Rec: 10/07/22 15:17 ES [id number]) Manual Assessments Soft Tissue Assessment Soft Tissue Mobility Assessment Scarring noted in chest, axilla, top of shoulder all with good mobility, non-tender . Increased muscle tension noted in R upper trap, pec major. Joint Mobility Assessment Joint Mobility Assessment Decreased inferior glide R GHJ . PT-OP-J Posture/Palpation/Skin Start: 10/07/22 13:25 Freq: Status: Active Protocol: Document 10/07/22 13:26 ES (Rec: 10/07/22 15:17 ES [id number]) Posture Evaluation Position Standing Head/C-Spine Posture Side Bent Left Shoulder Posture Neutral Scapula Posture (R) Depressed Arm Posture (L) Neutral,(R) Neutral PT-OP-K Range of Motion Start: 10/07/22 13:25 Freq: Status: Active Protocol: Document 10/07/22 13:26 ES (Rec: 10/07/22 15:17 ES [id number]) Shoulder Goniometric Range of Motion Shoulder Left Active Shoulder ROM WFL Yes Testing Position Standing Internal Rotation Behind Back (text) L1 Comments ER behind head to T3 Right Active Testing Position Standing Internal Rotation Behind Back (text) L5 Comments ER hand behind head to T1 Flexion and abduction AROM = 90% of R L side other than IR Pain with flexion, abduction, ER, and IR; decreased pain with flexion and abduction with manual GHJ caudal glide applied. PT-OP-L Special Tests Start: 10/07/22 13:25 Freq: Status: Active Protocol: Document 10/07/22 13:26 ES (Rec: 10/07/22 15:17 ES [id number]) Special Tests Shoulder Special Tests Neer Impingement Test Results Positive R Rivera Dominguez Impingement Test Results Positive R Empty Can Test Results Positive R Drop Arm Rotator Cuff Test Results Positive for pain R PT-OP-M Strength Start: 10/07/22 13:25 Freq: Status: Active Protocol: Document 10/07/22 13:26 ES (Rec: 10/07/22 15:17 ES [id number]) Shoulder Strength Shoulder Manual Muscle Testing Left External Rotation 5 Normal Internal Rotation 5 Normal Right External Rotation 4- Good- Internal Rotation 4- Good- Comments Pain with RC strength testing; decreased pain when GHJ caudal glide applied manually. PT-OP-Q Treatments Start: 10/07/22 13:25 Freq: Status: Active Protocol: Document 01/29/23 15:47 ED (Rec: 01/29/23 15:50 ED [id number]) Cardio Equipment Upper Body Ergometer (UBE) Duration (Minutes) 5 Therapeutic Exercises Prone Exercises SAPD Side bilateral Resistance purple Reps/Minutes 7q27-44 row Side bilateral Resistance L2 Reps/Minutes 6e09-25 Sidelying Exercises forward flexion Equipment Used 2# Reps/Minutes 2x12 Standing Exercises wall slide Standing Exercise Name SA wall slide Equipment Used foam roller Reps/Minutes 2x20 bicep curl Standing Exercise Name cable Resistance L2 Reps/Minutes 2x15 Neuro Re-Education Treatment Coordination Activities wall ball circles Reps/Duration x30 CW/CCW PT-OP-R Modalities Start: 10/07/22 13:25 Freq: Status: Active Protocol: Document 12/02/22 16:25 AMB (Rec: 12/02/22 16:25 AMB [id number]) Ultrasound Therapy Treatment R shoulder Treatment Duration (minutes) 8 Patient Position Supine Coupling Medium Ultrasound Gel PT-OP-T Assessment and Plan Start: 10/07/22 13:25 Freq: Status: Active Protocol: Document 01/29/23 15:47 ED (Rec: 01/29/23 15:50 ED [id number]) Physical Therapy Assessment Goals Four Impairment ROM/strength/function Orthotist Prosthetist Goal (LTG) Patient will be independent with HEP for ROM and strength. LTG Duration 8 weeks 01/20 Three Impairment Function Detention Goal (LTG) Patient will have a reduction in QuickDASH score to 38.5 or less indicating clinically significant improvement in function. LTG Duration 8 weeks 01/20 Two Impairment Weakness Short Term Goal (STG) Patient will demonstrate increased R shoulder IR/ER strength to 4+/5 without increased pain to improve ability to use dominant RUE for ADL's. 7:18: pain with hair care, walking the dog, STG Duration 4 weeks 12/23 One Impairment ROM Short Term Goal (STG) Patient will demonstrate increased R shoulder functional ER ROM to T3 and functional IR ROM to L3 to improve ability to get dressed and bathe. Progressing: pain with hair care, bathing improving STG Duration 4 weeks Assessment Summary Assessment Pt tolerated treatment well which focused on muscle strengthening to shoulder girdle. Pt denied any pain during movements but seemed to feel more stress in bicep area during exercises that were not targeting biceps. Will continue to progress patient within her tolerance in shoulder girdle stimulus.
--- NOTE | 2023-02-03 17:13 | PT.OTN ---
Current Diagnoses Other chronic pain (02/03/23) Pain in right shoulder (02/03/23) Physical Therapy Treatment Note PT-OP-A Visit Information Start: 10/07/22 13:25 Freq: Status: Active Protocol: Document 02/03/23 17:11 ED (Rec: 02/03/23 17:13 ED [id number]) Out-Patient Physical Therapy Visit Information Visit Information Visit Type Treatment Note Visit Start Time 16:00 Visit Stop Time 16:40 Total Visit Minutes 40 Visit Number 04/10 PT-OP-B Current Condition Start: 10/07/22 13:25 Freq: Status: Active Protocol: Document 01/16/23 15:55 ED (Rec: 01/16/23 16:03 ED [id number]) Current Condition History of Current Condition Onset Date April 2021 Current Complaints R shoulder and arm pain History of Current Condition Patient has a hx of multiple surgeries in the past 3 years, including axillary lymph node removal B, B mastectomy and reconstruction surgery. Ever since having her portacath removed from R chest, she has been having pain in the R shoulder. Has had x-ray and her surgeon has done some tests and has been told that her RC is fine. Patient has a hx of RCR R side several years ago. 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 Prior Treatments and Tests X-rays were negative. Has had some short massage sessions which helped temporarily. PT-OP-C Subjective Start: 10/07/22 13:25 Freq: Status: Active Protocol: Document 02/03/23 17:11 ED (Rec: 02/03/23 17:13 ED [id number]) OP-PT Subjective Patient Comments Patient Comments Pt states that she is starting a new job this week so she is unsure of her availability for future PT sessions. States her shoulder is feeling better and stronger. PT-OP-F Manual Assessment Start: 10/07/22 13:25 Freq: Status: Active Protocol: Document 10/07/22 13:26 ES (Rec: 10/07/22 15:17 ES [id number]) Manual Assessments Soft Tissue Assessment Soft Tissue Mobility Assessment Scarring noted in chest, axilla, top of shoulder all with good mobility, non-tender . Increased muscle tension noted in R upper trap, pec major. Joint Mobility Assessment Joint Mobility Assessment Decreased inferior glide R GHJ . PT-OP-J Posture/Palpation/Skin Start: 10/07/22 13:25 Freq: Status: Active Protocol: Document 10/07/22 13:26 ES (Rec: 10/07/22 15:17 ES [id number]) Posture Evaluation Position Standing Head/C-Spine Posture Side Bent Left Shoulder Posture Neutral Scapula Posture (R) Depressed Arm Posture (L) Neutral,(R) Neutral PT-OP-K Range of Motion Start: 10/07/22 13:25 Freq: Status: Active Protocol: Document 10/07/22 13:26 ES (Rec: 10/07/22 15:17 ES [id number]) Shoulder Goniometric Range of Motion Shoulder Left Active Shoulder ROM WFL Yes Testing Position Standing Internal Rotation Behind Back (text) L1 Comments ER behind head to T3 Right Active Testing Position Standing Internal Rotation Behind Back (text) L5 Comments ER hand behind head to T1 Flexion and abduction AROM = 90% of R L side other than IR Pain with flexion, abduction, ER, and IR; decreased pain with flexion and abduction with manual GHJ caudal glide applied. PT-OP-L Special Tests Start: 10/07/22 13:25 Freq: Status: Active Protocol: Document 10/07/22 13:26 ES (Rec: 10/07/22 15:17 ES [id number]) Special Tests Shoulder Special Tests Neer Impingement Test Results Positive R Rivera Dominguez Impingement Test Results Positive R Empty Can Test Results Positive R Drop Arm Rotator Cuff Test Results Positive for pain R PT-OP-M Strength Start: 10/07/22 13:25 Freq: Status: Active Protocol: Document 10/07/22 13:26 ES (Rec: 10/07/22 15:17 ES [id number]) Shoulder Strength Shoulder Manual Muscle Testing Left External Rotation 5 Normal Internal Rotation 5 Normal Right External Rotation 4- Good- Internal Rotation 4- Good- Comments Pain with RC strength testing; decreased pain when GHJ caudal glide applied manually. PT-OP-Q Treatments Start: 10/07/22 13:25 Freq: Status: Active Protocol: Document 02/03/23 17:11 ED (Rec: 02/03/23 17:13 ED [id number]) Cardio Equipment Upper Body Ergometer (UBE) Duration (Minutes) 5 Therapeutic Exercises Prone Exercises horizontal abduction Resistance 1 Reps/Minutes 1x12 SAPD Side bilateral Resistance purple Reps/Minutes 9u31-86 row Side bilateral Resistance L2 Reps/Minutes 0a52-42 Standing Exercises high row Resistance blue band Equipment Used 3x15 tricep Standing Exercise Name tricep ext @ 90 FF Resistance Blue band Reps/Minutes 3x12 wall slide Standing Exercise Name SA wall slide Equipment Used foam roller Reps/Minutes 2x20 bicep curl Standing Exercise Name cable Resistance L2 Reps/Minutes 2x15 lateral/fwd raises Resistance 2# Reps/Minutes 3t84-15 PT-OP-R Modalities Start: 10/07/22 13:25 Freq: Status: Active Protocol: Document 12/02/22 16:25 AMB (Rec: 12/02/22 16:25 AMB [id number]) Ultrasound Therapy Treatment R shoulder Treatment Duration (minutes) 8 Patient Position Supine Coupling Medium Ultrasound Gel PT-OP-T Assessment and Plan Start: 10/07/22 13:25 Freq: Status: Active Protocol: Document 02/03/23 17:11 ED (Rec: 02/03/23 17:13 ED [id number]) Physical Therapy Assessment Goals Four Impairment ROM/strength/function Mcfp Goal (LTG) Patient will be independent with HEP for ROM and strength. LTG Duration 8 weeks 01/20 Three Impairment Function Mcfp Goal (LTG) Patient will have a reduction in QuickDASH score to 38.5 or less indicating clinically significant improvement in function. LTG Duration 8 weeks 01/20 Two Impairment Weakness Short Term Goal (STG) Patient will demonstrate increased R shoulder IR/ER strength to 4+/5 without increased pain to improve ability to use dominant RUE for ADL's. 7:18: pain with hair care, walking the dog, STG Duration 4 weeks 12/23 One Impairment ROM Short Term Goal (STG) Patient will demonstrate increased R shoulder functional ER ROM to T3 and functional IR ROM to L3 to improve ability to get dressed and bathe. Progressing: pain with hair care, bathing improving STG Duration 4 weeks Assessment Summary Assessment Pt tolerated treatment well which focused on muscle strengthening to shoulder girdle. Pt denied any pain during movements but seemed to feel more stress in bicep area during exercises that were not targeting biceps. Will continue to progress patient within her tolerance in shoulder girdle stimulus.
--- NOTE | 2023-03-04 15:10 | PT.OPDS ---
Current Diagnoses Other chronic pain (02/03/23) Pain in right shoulder (02/03/23) Visit Care Team Role Provider Type Dae Rojas MD Other Providers Physician Specialty: Oncology Address: [address], [place], [address] Email: [email or web address] Jose Ann MD Attending Provider Physician Family Provider Primary Care Provider Referring Provider Specialty: Internal Medicine Address: [address] [place] [address], [address], [place], [address] Email: [email or web address] Visit Number Visit Number 04/10 Discharge Summary PT-OP-B Current Condition Start: 10/07/22 13:25 Freq: Status: Active Protocol: Document 01/16/23 15:55 ED (Rec: 01/16/23 16:03 ED [id number]) Current Condition History of Current Condition Onset Date April 2021 Current Complaints R shoulder and arm pain History of Current Condition Patient has a hx of multiple surgeries in the past 3 years, including axillary lymph node removal B, B mastectomy and reconstruction surgery. Ever since having her portacath removed from R chest, she has been having pain in the R shoulder. Has had x-ray and her surgeon has done some tests and has been told that her RC is fine. Patient has a hx of RCR R side several years ago. 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 Prior Treatments and Tests X-rays were negative. Has had some short massage sessions which helped temporarily. PT-OP-C Subjective Start: 10/07/22 13:25 Freq: Status: Active Protocol: Document 02/03/23 17:11 ED (Rec: 02/03/23 17:13 ED [id number]) OP-PT Subjective Patient Comments Patient Comments Pt states that she is starting a new job this week so she is unsure of her availability for future PT sessions. States her shoulder is feeling better and stronger. PT-OP-F Manual Assessment Start: 10/07/22 13:25 Freq: Status: Active Protocol: Document 10/07/22 13:26 ES (Rec: 10/07/22 15:17 ES [id number]) Manual Assessments Soft Tissue Assessment Soft Tissue Mobility Assessment Scarring noted in chest, axilla, top of shoulder all with good mobility, non-tender . Increased muscle tension noted in R upper trap, pec major. Joint Mobility Assessment Joint Mobility Assessment Decreased inferior glide R GHJ . PT-OP-J Posture/Palpation/Skin Start: 10/07/22 13:25 Freq: Status: Active Protocol: Document 10/07/22 13:26 ES (Rec: 10/07/22 15:17 ES [id number]) Posture Evaluation Position Standing Head/C-Spine Posture Side Bent Left Shoulder Posture Neutral Scapula Posture (R) Depressed Arm Posture (L) Neutral,(R) Neutral PT-OP-K Range of Motion Start: 10/07/22 13:25 Freq: Status: Active Protocol: Document 10/07/22 13:26 ES (Rec: 10/07/22 15:17 ES [id number]) Shoulder Goniometric Range of Motion Shoulder Left Active Shoulder ROM WFL Yes Testing Position Standing Internal Rotation Behind Back (text) L1 Comments ER behind head to T3 Right Active Testing Position Standing Internal Rotation Behind Back (text) L5 Comments ER hand behind head to T1 Flexion and abduction AROM = 90% of R L side other than IR Pain with flexion, abduction, ER, and IR; decreased pain with flexion and abduction with manual GHJ caudal glide applied. PT-OP-L Special Tests Start: 10/07/22 13:25 Freq: Status: Active Protocol: Document 10/07/22 13:26 ES (Rec: 10/07/22 15:17 ES [id number]) Special Tests Shoulder Special Tests Neer Impingement Test Results Positive R Rivera Dominguez Impingement Test Results Positive R Empty Can Test Results Positive R Drop Arm Rotator Cuff Test Results Positive for pain R PT-OP-M Strength Start: 10/07/22 13:25 Freq: Status: Active Protocol: Document 10/07/22 13:26 ES (Rec: 10/07/22 15:17 ES [id number]) Shoulder Strength Shoulder Manual Muscle Testing Left External Rotation 5 Normal Internal Rotation 5 Normal Right External Rotation 4- Good- Internal Rotation 4- Good- Comments Pain with RC strength testing; decreased pain when GHJ caudal glide applied manually. PT-OP-T Assessment and Plan Start: 10/07/22 13:25 Freq: Status: Active Protocol: Document 03/04/23 15:09 ED (Rec: 03/04/23 15:10 ED [id number]) Physical Therapy Assessment Goals Four Impairment ROM/strength/function Crop Grain Or Livestock Farmer Goal (LTG) Patient will be independent with HEP for ROM and strength. LTG Duration 8 weeks 01/20 Three Impairment Function Crop Grain Or Livestock Farmer Goal (LTG) Patient will have a reduction in QuickDASH score to 38.5 or less indicating clinically significant improvement in function. LTG Duration 8 weeks 01/20 Two Impairment Weakness Short Term Goal (STG) Patient will demonstrate increased R shoulder IR/ER strength to 4+/5 without increased pain to improve ability to use dominant RUE for ADL's. 7:18: pain with hair care, walking the dog, STG Duration 4 weeks 12/23 One Impairment ROM Short Term Goal (STG) Patient will demonstrate increased R shoulder functional ER ROM to T3 and functional IR ROM to L3 to improve ability to get dressed and bathe. Progressing: pain with hair care, bathing improving STG Duration 4 weeks Assessment Summary Assessment Pt will be discharged from PT at this time d/t her being unable to attend PT regularly. Pt was being seen for her shoulders but is no longer able to attend physical therapy regularly d/t busy work schedule and personal schedule. Physical Therapy Plan Discharge Physical Therapy Discharge Reasons No Longer Attending PT
== END 2023-03-09 14:07 | disposition home or self-care (01) ==
LOC: PHYS 16:00
PROVIDERS: Absent Provider Internal Medicine; Family Provider Internal Medicine; PCP Internal Medicine; Referring Provider Internal Medicine; Visit Provider Internal Medicine
DX: M25.511 Pain in right shoulder (principal); G89.29 Other chronic pain
CPT/HCPCS: 97035; 97110; 97112; 97140; 97161; 97535

== ENCOUNTER → 2023-04-23 13:00 | Oncology outpatient (ONC) | payer OTHER, MEDICAID, SELFPAY ==
--- NOTE | 2019-08-22 12:15 | ONC.SCHED ---
No auth required for clinic: [facility] ref#[id number]
--- NOTE | 2019-08-23 13:06 | ONC.MSW ---
Description: New Pt F/F Visit Activity: Met with pt for initial f/f visit. Due to her exposure to Covid-19 2-weeks ago, Dr. Rojas made the decision to not meet with her today f/f, but did a phone visit with her instead. SR. MANAGER MARKETING discussed what to expect with next steps in seeing the Oncologist, referral to surgery, then radiation. Discussed the ability for this SR. MANAGER MARKETING to assist in completing her FMLA forms, as well as ways to access financial reimbursement through the [facility] Fund. Discussed a plan for her to return on 08/29 for the next visit with Dr. Rojas. She will contact this SR. MANAGER MARKETING once she receives her FMLA forms from her employer.
--- NOTE | 2019-08-29 11:53 | ONC.MSW ---
Addendum entered and electronically signed by SHERRON Galeana 08/29/19 14:26: Pt is now scheduled for next 09/04 at 10:00am. Called and left a message with Dr. Ann to please call pt re: extreme anxiety and worsening pain in her breast. Confirmed with pt that this ORIENTATION AND MOBILITY INSTRUCTOR faxed her referral today to [facility] for her surgery consult. Original Note: Description: Appt. Rescheduled, Care Coordination Activity: Spoke to pt after Dr. Rojas decided that he wanted her definitively tested for Covid-19 prior to meeting with her in clinic. ORIENTATION AND MOBILITY INSTRUCTOR made several calls, was able to get Dr. Ann to authorize pt being tested today at the respiratory clinic here at . Called pt and provided the appt. time of 11:45am, and instructions on how to call the nurse from her care. Test will come back Thursday, and if negative, Dr. Rojas will be able to reschedule with her. ORIENTATION AND MOBILITY INSTRUCTOR will call pt once we get the test results to reschedule.
--- NOTE | 2019-09-05 15:06 | ONC.CONS ---
History of Present Illness - Data of Consult Patient: new to practice Consult date: 09/05/19 Requesting Physician: Jose Ann MD Primary Care Provider: Jose Ann MD - Consult Narrative Reason for consult: Newly diagnosed left breast ER positive, MI positive, HER2 negative cancer. Narrative: hBarati Wayne is a 58 year old female. She recalled that about 5-6 years ago, she was found to have ?granulation? in the right breast. Patient underwent a simple resection. He did not receive any radiation therapy or any other endocrine therapy or chemotherapy. Since then patient has been on regular annual mammogram screening. On 07/20/2019, the screening mammogram on 07/20/2019 showed architectural distortion in the left breast at 1200. Additional views on 08/04/2019 showed a 1.2 cm irregular equal density focal asymmetry in the left breast at 1200 . Same day ultrasound showed 1 x 1.2 x 1 cm irregular mass in the left breast at 0200 middle depth 3 cm from nipple, highly suspicious for malignancy. On 08/10/2019 patient underwent ultrasound-guided biopsy. And the pathology showed invasive carcinoma with ductal and lobular features, grade 2/3, without ductal carcinoma in-situ or lobular carcinoma in-situ, without calcifications, with multi focally lymphovascular invasion. The tumor cells are estrogen receptor positive (99%, strong), progesterone receptor positive (> 85%, strong), and HER2 negative. Clinically, patient said that she has bad energy and sometimes tired. Patient in addition said that she does not have much of an appetite. She tries to make herself to eat. However she said her weight has remained stable. She denies any shortness of breath. She denies any chest pain. She denies nausea or vomiting. She denies diarrhea or constipation. She denies any musculoskeletal pain. Home Medications and Allergies Home Medications Medication Instructions Recorded Confirmed Type albuterol sulfate 90 mcg/actuation 2 puff INHALATION Q4HP PRN #1 inh 04/18/19 09/02/19 Rx aerosol inhaler alprazolam 0.5 mg tablet 0.5 mg PO BID PRN #60 tab 05/30/19 09/02/19 Rx oxycodone 5 mg tablet 5 mg PO Q8H PRN #20 tab 08/31/19 09/02/19 Rx Allergies Allergy/AdvReac Type Severity Reaction Status Date / Time clindamycin Allergy Severe SOB/THROAT Verified 09/02/19 13:47 SWELL levofloxacin Allergy Severe Difficulty Verified 09/02/19 13:47 Breathing moxifloxacin Allergy Severe Difficulty Verified 09/02/19 13:47 Breathing NSAIDS (Non-Steroidal Allergy Severe SOB/THROAT Verified 09/02/19 13:47 Anti-Inflamma SWELLS terbinafine Allergy Mild Nausea, Verified 09/02/19 13:47 diarrhea cefuroxime Allergy Unknown Verified 09/02/19 13:47 clarithromycin Allergy Unknown Verified 09/02/19 13:47 metronidazole Allergy Unknown Verified 09/02/19 13:47 nitrofurantoin Allergy Unknown Verified 09/02/19 13:47 omeprazole Allergy Unknown Verified 09/02/19 13:47 Quinolones Allergy Unknown Verified 09/02/19 13:47 Sulfa (Sulfonamide Allergy Unknown Verified 09/02/19 13:47 Antibiotics) tramadol Allergy Unknown Verified 09/02/19 13:47 buspirone AdvReac Severe numbness Verified 09/02/19 13:47 to lips, hands, feet, SOB, nausea/ vomiting sertraline AdvReac Mild DIZZY, Verified 09/02/19 13:47 FLOATING Medical History - Medical, Surgical, Family History Medical History: Medical History (Last Reviewed 09/05/19 @ 15:28 by Dae Rojas MD) Anxiety Asthma Melanoma Pulmonary embolism Surgical History: Surgical History (Last Reviewed 09/05/19 @ 15:28 by Dae Rojas MD) Status post breast biopsy Family History: Family History (Last Updated 09/05/19 @ 15:26 by Dae Rojas MD) Mother Breast cancer Ovarian cancer - Social History Smoking Status: Current some day smoker Substance Use Type: does not use Alcohol Intake: never Review of Systems All systems PM: reviewed and no additional remarkable complaints except as stated (those mentioned in HPI) Exam Vital signs: 09/05/19 15:30 Last Vital Signs Pulse 66 09/05/19 15:15 Resp 16 09/05/19 15:15 BP 137/89 09/05/19 15:15 Pulse Ox 99 09/05/19 15:15 Narrative: ECOG 1 Vitals above reviewed Constitutional: WDWN, well nourished, and well groomed. NAD. Pleasant and cooperative. HEENT: NCAT, EOMI, PERRLA. Anicteric sclera. Neck: Supple and symmetrical, no palpable masses. No palpable thyromegaly. Respiratory: No use of accessory muscles. CTAB, no wheezes. Cardiovascular: RRR, S1 and S2 normal, no M/G/R. No edema of lower extremities. Abdomen: Soft, NTND, no palpable masses. No palpable hepatosplenomegaly. No hernia. Lymphatic: no palpable palpable lymph nodes in the neck, axillae, or groins. Musculoskeletal: normal gait and station Neurological: AOx3, CN II-XII grossly intact. No focal motor or sensory deficit. Psychiatric: Normal memory. Normal mood and affect. Breast Exam: Left breast is without nipple retraction, no skin changes. There is a vaguely palpable mass at 2-3 o'clock measuring about 2-3 cm in diameter nontender. No palpable lymph nodes in the left axilla; The right breast is without nipple retraction, no skin changes, no palpable lumps, no palpable lymph nodes in the left axilla. All physical examinations were chaperoned Results - Labs Reviewed. Assessment and Plan (1) 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, estrogen receptor positive Overview: 58-year-old female with newly diagnosed left sided ER positive (99%, strong), MI positive (>85%, strong), Her2 negative, and clinically node negative breast invasive carcinoma after ultrasound-guided biopsy on 08/10/2019. Pathology is positive for lymphovascular invasion. Patient did not notice any lumps by herself and it was and screening mammogram detected. No left axillary lymph node enlargement on physical examination or ultrasound study. Assessment: I talked with the patient about the general principle of early stage HR positive and HER2 negative breast cancer. I talked with her that usually patient will need surgery upfront. Patient has already set up an appointment to see Dr. Sarah on Thursday. After the surgery depending on the pathology, patient may need adjuvant chemotherapy and/or adjuvant radiation therapy. I told her that if she chooses lumpectomy, usually the radiation therapy is recommended. If she chooses mastectomy, it is possible that she does not need radiation therapy. I talked with her that my role as medical oncologist is to decide if the patient will need chemotherapy or not. I talked with her that I would recommend testing of surgical sample for Oncotype DX. If the score is 26 or higher, adjuvant chemotherapy is recommended. Otherwise it is not necessary. Since patient has any hormone receptor-positive breast cancer, adjuvant endocrine therapy for 5 years usually is recommended. Patient voiced understanding. Plan: Surgical visit to see Dr. Sarah on 09/07/2019 RTC in 4 weeks, CBC, CMP
[2019-09-05 15:15] VITALS: BP 137/89; PULSE 66; RESP 16; O2SAT 99
--- NOTE | 2019-09-12 10:28 | ONC.MSW ---
Description: Employer Disability Forms Activity: Completed pt's employer forms, called her and let her know that they are ready to p/u.
--- NOTE | 2019-09-13 16:28 | PC.NURSE ---
Addendum entered by Bhavna Colvin R.N. 09/14/19 11:40: According to Dr. Duvall, pt called with MRI results. Original Note: MRI RESULTS WERE REQUESTED BY PATIENT PER TELEPHONE. HER NEXT F/U IS 10/05. REQUEST MADE TO DR DUVALL TO CONSIDER CALLING PATIENT WITH RESULTS.
--- NOTE | 2019-09-22 14:07 | ONC.MSW ---
Description: Coping Support, Breast Navigation Activity: Called pt to f/u on how she is doing, especially since she has now met with the surgeon. Her surgery is planned for 09/29, pt chose to delay her surgery an extra week in order to prepare her home for her recovery after surgery, as well as to make sure that all plans are in place for care for her 84-year old mother, who has advanced dementia. Pt also has found someone to come and care for herself for about a week after her surgery. Discussed ways to utilize the [facility] for reimbursement of transportation related costs, hair loss resources, mastectomy supplies, etc. Discussed coping and emotional adjustment to diagnosis and impending treatment. Breast MRI and sequential ultrasounds found that the size and involvement of her left breast cancer is more that originally thought, and now she is needing a skin-sparing mastectomy, potential chemo (depending on pathology), radiation and endocrine therapy. We discussed her fears of hair loss, and the ways that people cope with this fear, process through it, and what to expect. Discussed how her boyfriend is coping-not well, she shared. He is struggling with how to process his own emotions as well as not knowing how to support her. His own mother reportedly of breast cancer when he was a young child. NET SOLUTIONS ARCHITECT encouraged pt to offer to him for her and he, or just he alone, to come and meet privately with this NET SOLUTIONS ARCHITECT for counseling/support. She plans to do this. NET SOLUTIONS ARCHITECT also discussed the option of applying for [facility] to assist with the building costs of her care. Placed the [facility] application as well as resource publications for caregiver coping support, as well as the Taking Time booklet to help with adjusting to diagnosis and what to expect. Will plan to contact pt on 10/02 in order to check on her after her surgery.
[2019-10-06 12:25] VITALS: BP 122/80; PULSE 66; RESP 18; TEMP 36.7; O2SAT 99
--- NOTE | 2019-10-06 23:04 | ONC.PN ---
PN -Subjective Interval history: ID/CC: 58 year old with left breast cancer. History of Present Illness: Bharati Wayne is a 58 year old female. She recalled that about 5-6 years ago, she was found to have ?granulation? in the right breast. Patient underwent a simple resection. She did not receive any radiation therapy, endocrine therapy or chemotherapy. Since then patient has been on regular annual mammogram screening. On 07/20/2019, the screening mammogram on showed architectural distortion in the left breast at 1200. Additional views on 08/04/2019 showed a 1.2 cm irregular equal density focal asymmetry in the left breast at 1200 . Same day ultrasound showed 1 x 1.2 x 1 cm irregular mass in the left breast at 0200 middle depth 3 cm from nipple, highly suspicious for malignancy. On 08/10/2019 patient underwent ultrasound-guided biopsy. The pathology showed invasive carcinoma with ductal and lobular features, grade 2/3, without ductal carcinoma in-situ or lobular carcinoma in-situ, without calcifications, with multi focally lymphovascular invasion. The tumor cells are estrogen receptor positive (99%, strong), progesterone receptor positive (> 85%, strong), and HER2 negative. Clinically, patient said that she has bad energy and sometimes tired. Patient in addition said that she does not have much of an appetite. She tries to make herself to eat. However she said her weight has remained stable. She denies any shortness of breath. She denies any chest pain. She denies nausea or vomiting. She denies diarrhea or constipation. She denies any musculoskeletal pain. Interval Events: On 09/12/2019, patient underwent bilateral breast MRI. It showed multiple small foci of enhancement at a posterior at 1200 in the right breast, a spiculated mass in the left breast which corresponded with the biopsy-proven neoplasm, and no findings to suggest quinton metastasis. Patient then underwent right breast ultrasound. Remarkably, there was no abnormality. On 09/30/2019,she underwent left skin sparing mastectomy and left axillary sentinel node biopsy. The final pathology showed invasive carcinoma with mixed lobular and ductal features, the largest invasive focus measuring 5.6 cm, and 2 of 5 sentinel nodes positive for micrometastatic carcinoma, grade 3, unifocal, without DCIS, with LCIS, all margins negative except posterior lateral margin that was positive for invasive carcinoma, Pathology staging pT3 pN1mi(sn). On 10/06/2019, this case was discussed at [facility] Tumor Board. At the time of the Tumor Board, the final pathology was still not available for review yet. The tumor board discussed the MRI findings of abnormal small foci of enhancement in the right breast. The board recommended MR guided biopsy as there is no safety leader ultrasound finding. - Patient Self-Reported Symptoms SR Gastrointestinal issues: Poor or no appetite Home Medications and Allergies Home Medications Medication Instructions Recorded Confirmed Type albuterol sulfate 90 mcg/actuation 2 puff INHALATION Q4HP PRN #1 inh 04/18/19 10/06/19 Rx aerosol inhaler alprazolam 0.5 mg tablet 0.5 mg PO BID PRN #60 tab 05/30/19 10/06/19 Rx docusate sodium 100 mg PO BID #20 cap 09/30/19 10/06/19 Rx oxycodone 5 mg PO Q4H PRN #30 tab 09/30/19 10/06/19 Rx Allergies Allergy/AdvReac Type Severity Reaction Status Date / Time cefuroxime Allergy Severe throat Verified 09/30/19 09:01 swelling clarithromycin Allergy Severe Swelling Verified 09/30/19 09:01 of Lip/Tongue/Throat clindamycin Allergy Severe SOB/THROAT Verified 09/21/19 10:11 SWELL levofloxacin Allergy Severe Difficulty Verified 09/21/19 10:11 Breathing metronidazole Allergy Severe Swelling Verified 09/30/19 09:01 of Lip/Tongue/Throat moxifloxacin Allergy Severe Difficulty Verified 09/21/19 10:11 Breathing nitrofurantoin Allergy Severe Swelling Verified 09/30/19 09:01 of Lip/Tongue/Throat NSAIDS (Non-Steroidal Allergy Severe SOB/THROAT Verified 09/21/19 10:11 Anti-Inflamma SWELLS Sulfa (Sulfonamide Allergy Severe Swelling Verified 09/30/19 09:01 Antibiotics) of Lip/Tongue/Throat tramadol Allergy Severe Swelling Verified 09/30/19 09:01 of Lip/Tongue/Throat terbinafine Allergy Mild Nausea, Verified 09/21/19 10:11 diarrhea buspirone AdvReac Severe numbness Verified 09/02/19 13:47 to lips, hands, feet, SOB, nausea/ vomiting omeprazole AdvReac Intermediate Diarrhea Verified 09/30/19 09:01 Quinolones AdvReac Intermediate Diarrhea Verified 09/30/19 09:01 sertraline AdvReac Mild DIZZY, Verified 09/02/19 13:47 FLOATING Exam Vital signs: Vital Signs Temp Pulse Resp BP Pulse Ox 10/06/19 12:25 98.1 F 66 18 122/80 99 Intake and Output 10/06/19 10/06/19 10/06/19 07:59 15:59 23:59 Other: Weight 66.1 kg Patient Weight 10/06/19 23:59 Weight 66.1 kg Narrative: ECOG 1 Vitals above reviewed Constitutional: WDWN, well nourished, and well groomed. NAD. Pleasant and cooperative. HEENT: NCAT, EOMI, PERRLA. Anicteric sclera. Neck: Supple and symmetrical, no palpable masses. No palpable thyromegaly. Respiratory: No use of accessory muscles. CTAB, no wheezes. Cardiovascular: RRR, S1 and S2 normal, no M/G/R. No edema of lower extremities. Abdomen: Soft, NTND, no palpable masses. No palpable hepatosplenomegaly. No hernia. Lymphatic: no palpable palpable lymph nodes in the neck, axillae, or groins. Musculoskeletal: normal gait and station Neurological: AOx3, CN II-XII grossly intact. No focal motor or sensory deficit. Psychiatric: Normal memory. Normal mood and affect. Breast Exam: deferred. Assessment and Plan (1) 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, estrogen receptor positive Overview: 58-year-old female with newly diagnosed left sided ER positive (99%, strong), WV positive (>85%, strong), Her2 negative, and clinically node negative breast invasive carcinoma after ultrasound-guided biopsy on 08/10/2019. Pathology is positive for lymphovascular invasion. Patient did not notice any lumps by herself and it was and screening mammogram detected. No left axillary lymph node enlargement on physical examination or ultrasound study. On 09/30/2019,she underwent left skin sparing mastectomy and left axillary sentinel node biopsy. The final pathology showed invasive carcinoma with mixed lobular and ductal features, the largest invasive focus measuring 5.6 cm, and 2 of 5 sentinel nodes positive for micrometastatic carcinoma, grade 3, unifocal, without DCIS, with LCIS, all margins negative except posterior lateral margin that was positive for invasive carcinoma, Pathology staging pT3 pN1mi(sn). Assessment: Today, first of all, I reviewed the surgical pathology results with the patient. I talked with her and friend (sister in law), that the pathology showed ER positive, WV positive and HER2 negative, high grade, large (5.6 cm) mixed ductal and lobular carcinoma with positive lateral margin. I explained to the patient that given the positive margin, I would favor that patient be evaluated for possible resection if it is feasible. I then talked with them that she needs adjuvant chemotherapy because the size of the tumor, the high grade of the tumor as well as the micrometastasis in the sentinel lymph node. I also talked with them that a port will be needed for chemotherapy. She will need to see radiation oncology for discussion of adjuvant radiation treatment. I talked with her about the right breast MRI findings. I informed them about our tumor board discussion. I talked with her that I will refer her to [facility] for MR-guided biopsy. I explained to them that this is critically important. If it is negative, our focus will be solely on the left side. If it is positive, it will be favorable that we proceed with consideration of bilateral breast cancers. Patient voiced understanding. Plan: MR guided biopsy of right breast lesion RTC after biopsy
--- NOTE | 2019-10-11 13:18 | ONC.SCHED ---
Referral sent to [facility] for MR guided breast biopsy. This was sent as urgent. I am waiting for the radiologist at [facility] to give the approval and for them to let me know cpt codes to prior auth. Usually once the radiologist looks at these they add additional stuff on. Also, patient called to find out the status of this. I called back and got VM letting her know I'm working on this and have started the process as urgent.
[2019-10-18 11:56] VITALS: BP 128/81; PULSE 87; RESP 16; TEMP 36.4; O2SAT 97
--- NOTE | 2019-10-18 12:06 | P.PNONC_ITS ---
PN -Subjective Interval history: ID/CC: 58 year old with left breast cancer. History of Present Illness: Bharati Wayne is a 58 year old female. She recalled that about 5-6 years ago, she was found to have ?granulation? in the right breast. Patient underwent a simple resection. She did not receive any radiation therapy, endocrine th erapy or chemotherapy. Since then patient has been on regular annual mammogram screening. On 07/20/2019, the screening mammogram on showed architectural distortion in the left breast at 1200. Additional views on 08/04/2019 showed a 1.2 cm irregular equal density focal asymmetry in the left breast at 1200 . Same day ultrasound showed 1 x 1.2 x 1 cm irregular mass in the left breast at 0200 middle depth 3 cm from nipple, highly suspicious for malignancy. On 08/10/2019 patient underwent ultrasound-guided biopsy. The pathology showed invasive carcinoma with ductal and lobular features, grade 2/3, without ductal carcinoma in-situ or lobular carcinoma in-situ, without calcifications, with multi focally lymphovascular invasion. The tumor cells are estrogen receptor positive (99%, strong), progesterone receptor positive (> 85%, strong), and HER2 negative. On 09/12/2019, patient underwent bilateral breast MRI. It showed multiple small foci of enhancement at a posterior at 1200 in the right breast, a spiculated mass in the left breast which corresponded with the biopsy-proven neoplasm, and no findings to suggest quinton metastasis. Patient then underwent right breast ultrasound. Remarkably, there was no abnormality. On 09/30/2019,she underwent left skin sparing mastectomy and left axillary sentinel node biopsy. The final pathology showed invasive carcinoma with mixed lobular and ductal features, the largest invasive focus measuring 5.6 cm, and 2 of 5 sentinel nodes positive for micrometastatic carcinoma, grade 3, unifocal, without DCIS, with LCIS, all margins negative except posterior lateral margin that was positive for invasive carcinoma, Pathology staging pT3 pN1mi(sn). On 10/06/2019, this case was discussed at [facility] Tumor Board. At the time of the Tumor Board, the final pathology was still not available for review yet. The tumor board discussed the MRI findings of abnormal small foci of enhancement in the right breast. The board recommended MR guided biopsy as there is no hadoop developer ultrasound finding. Interval Events: The final pathology of her left breast mastectomy showed ER positive, OR positive and HER2 negative, high grade, large (5.6 cm) mixed ductal and lobular carcinoma with positive lateral margin. On 10/13/2019, she underwent MR guided biopsy of the right breast lesion. The pathology showed fibrocystic changes and negative for in situ and invasive malignancy. Patient presents today for review of the results. Clinically, she has been doing well and no new signs or symptoms. - Patient Self-Reported Symptoms SR Constitution: Weight loss/gain SR Gastrointestinal issues: Poor or no appetite - Additional ROS All systems PM: reviewed and no additional remarkable complaints except as stated Home Medications and Allergies Home Medications Medication Instructions Recorded Confirmed Type albuterol sulfate 90 mcg/actuation 2 puff INHALATION Q4HP PRN #1 inh 04/18/19 10/18/19 Rx aerosol inhaler alprazolam 0.5 mg tablet 0.5 mg PO BID PRN #60 tab 05/30/19 10/18/19 Rx docusate sodium 100 mg PO BID #20 cap 09/30/19 10/18/19 Rx oxycodone 5 mg PO Q4H PRN #30 tab 09/30/19 10/18/19 Rx hydrocodone-acetaminophen 1 tab PO Q6H PRN #60 tab 10/18/19 Rx Allergies Allergy/AdvReac Type Severity Reaction Status Date / Time cefuroxime Allergy Severe throat Verified 10/13/19 10:51 swelling clarithromycin Allergy Severe Swelling Verified 10/13/19 10:51 of Lip/Tongue/Throat clindamycin Allergy Severe SOB/THROAT Verified 10/13/19 10:51 SWELL levofloxacin Allergy Severe Difficulty Verified 10/13/19 10:51 Breathing metronidazole Allergy Severe Swelling Verified 10/13/19 10:51 of Lip/Tongue/Throat moxifloxacin Allergy Severe Difficulty Verified 10/13/19 10:51 Breathing nitrofurantoin Allergy Severe Swelling Verified 10/13/19 10:51 of Lip/Tongue/Throat NSAIDS (Non-Steroidal Allergy Severe SOB/THROAT Verified 10/13/19 10:51 Anti-Inflamma SWELLS Sulfa (Sulfonamide Allergy Severe Swelling Verified 10/13/19 10:51 Antibiotics) of Lip/Tongue/Throat tramadol Allergy Severe Swelling Verified 10/13/19 10:51 of Lip/Tongue/Throat terbinafine Allergy Mild Nausea, Verified 10/13/19 10:51 diarrhea buspirone AdvReac Severe numbness Verified 10/13/19 10:51 to lips, hands, feet, SOB, nausea/ vomiting omeprazole AdvReac Intermediate Diarrhea Verified 10/13/19 10:51 Quinolones AdvReac Intermediate Diarrhea Verified 10/13/19 10:51 sertraline AdvReac Mild DIZZY, Verified 10/13/19 10:51 FLOATING Exam Vital signs: Vital Signs Temp Pulse Resp BP Pulse Ox 10/18/19 11:56 97.5 F L 87 16 128/81 97 Intake and Output 10/17/19 10/18/19 10/18/19 23:59 07:59 15:59 Other: Weight 65.5 kg Patient Weight 10/18/19 23:59 Weight 65.5 kg Narrative: ECOG 1 Vitals above reviewed Constitutional: WDWN, well nourished, and well groomed. NAD. Pleasant and cooperative. HEENT: NCAT, EOMI, PERRLA. Anicteric sclera. Neck: Supple and symmetrical, no palpable masses. No palpable thyromegaly. Respiratory: No use of accessory muscles. CTAB, no wheezes. Cardiovascular: RRR, S1 and S2 normal, no M/G/R. No edema of lower extremities. Abdomen: Soft, NTND, no palpable masses. No palpable hepatosplenomegaly. No hernia. Lymphatic: no palpable palpable lymph nodes in the neck, axillae, or groins. Musculoskeletal: normal gait and station Neurological: AOx3, CN II-XII grossly intact. No focal motor or sensory deficit. Psychiatric: Normal memory. Normal mood and affect. Breast Exam: deferred. Assessment and Plan (1) 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, estrogen receptor positive Overview: 58-year-old female with newly diagnosed left sided ER positive (99%, strong), OR positive (>85%, strong), Her2 negative, and clinically node negative breast invasive carcinoma after ultrasound-guided biopsy on 08/10/2019. Pathology is positive for lymphovascular invasion. Patient did not notice any lumps by herself and it was and screening mammogram detected. No left axillary lymph node enlargement on physical examination or ultrasound study. On 09/30/2019,she underwent left skin sparing mastectomy and left axillary sentinel node biopsy. The final pathology showed invasive carcinoma with mixed lobular and ductal features, the largest invasive focus measuring 5.6 cm, and 2 of 5 sentinel nodes positive for micrometastatic carcinoma, grade 3, unifocal, without DCIS, with LCIS, all margins negative except posterior lateral margin that was positive for invasive carcinoma, Pathology staging pT3 pN1mi(sn). Assessment: I reviewed the pathology of the biopsy of the right breast. It was negative form DCIS or malignancy. Then I talked with the patient that the next step for her is to see David Castillo and proceed with re-resection to achieve a negative margin. Thereafter patient will need adjuvant chemotherapy. I talked with the patient about the need for port placement I will try to text message David Castillo for the port placement at the same time if possible with the re-resection of the left breast. Patient voiced understanding. As far as the left breast pain is concerned, I will switch the oxycodone to hydrocodone. Patient said that she used to use hydrocodone before and it works better. Plan: Port placement referral Return to clinic after the surgical resection to discuss about adjuvant chemotherapy.
--- NOTE | 2019-10-18 13:52 | PC.NURSE ---
ADVERSE REACTION TO OXYCODONE REPORTED BY PATIENT. SHE STATES FEELING VERY NAUSEATED AND LIGHTHEADED AND DECREASED APPETITE. DESPITE PAIN OF 4-5 DURING DAY AT SITE OF LYMPHNODE REMOVAL UNDER LEFT ARM AND AT [facility] BREAST BIOPSY SITE, SHE ONLY TAKES OXY AT NIGHT SO SHE CAN SLEEP. MESSAGE WAS LEFT WITH HER THAT PER DR DUVALL SHE SHOULD SEE IF TYLENOL AND/OR IBUPROFEN ARE HELPFUL AND IF NOT CALL HER PCP WHO PRESCRIBED THE OXYCODON.
--- NOTE | 2019-10-20 10:01 | ONC.MSW ---
Description: T/C re: resources Activity: Returned call to pt. Discussed her questions re: what to expect with hair loss, hair loss resources, and reimbursement through the [facility] [employer]. Pt shared that she is coping well, that she's immensely relieved that the pathology from her right breast was negative for cancer. She has great support through her boyfriend, brother, many friends, and catholic group. Will continue to monitor for adjustment to treatment and ongoing assistance/support needs.
[2019-11-16 09:38] VITALS: BP 130/92; PULSE 89; RESP 18; TEMP 36.4; O2SAT 99
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
--- NOTE | 2019-11-22 15:43 | PC.NURSE ---
Chemotherapy Education: Pt provided written information on all topics discussed. Written materials printed from [email or web address] Pt was given an overview of cancer and mechanism of action of cancer cells, that cancer is caused by cells that are dividing rapidly, and out of control. Traditional chemotherapy works by targeting the fast dividing cells and killing them. Chemotherapy affecting healthy cells dividing quickly causes many of the side effects (hair follicles, bone marrow, mucus membranes). Overview of blood cell functions of white cells to fight infection, red cells to carry oxygen, and platelets to stop bleeding was discussed, and that when bone marrow is affected by chemo, there is a decrease in production of these cells. Home care of the patient following chemotherapy was discussed. Body fluids will be contaminated for 48 hours following treatment, and any body fluids handled by caregivers should be handled wearing gloves, surfaces need to be cleaned with soap and water, any soiled linens or clothing need to be washed separately in hot water, toilet lid should be closed when flushing, person cleaning the toilet should wear gloves. How chemotherapy is administered by the RN?s in the clinic, that orders are double checked by pharmacy and checked again by two RN?s prior to administration. Nurses wear protective gear to prevent exposure to them of the chemotherapy agents which can also cause cancer. Cancer center information discussed and written hand out provided listing on-call oncologist available weekends and after hours triage R.N. hours and infusion room guide. New patient folder given to pt, which includes clinic names, phone numbers, clinic information, calendar, cancer glossary, and list of resources. Handout on advanced directives Common side effects of chemotherapy were discussed with self care tips for prevention of complications. Information also provided in writing. These included: Low blood counts (anemia, thrombocytopenia, neutropenia) Hair loss (alopecia) Nausea and vomiting Decreased appetite Loss of fertility Diarrhea Mouth sores Constipation Peripheral neuropathy Chemo brain/cognitive changes Fatigue Instructions on when to call your healthcare team or on-call physician immediately: Fever of 100.4 or higher, chills, any signs of infection Shortness of breath, wheezing, difficulty breathing, closing of throat, swelling of face, hives (signs of possible allergic reaction) Chest pain, fast heart beat or feelings of a different heart rhythm Swelling of an extremity with or without pain signs of stroke Instructions on when to call your healthcare team within the next 24 hours Nausea that interferes with ability to eat and unrelieved with prescribed medication Diarrhea (4-6 episodes in 24 hour period). Unusual bleeding or bruising Black or tarry stools, or blood in your stools Blood in the urine pain or burning with urination Extreme fatigue (unable to perform self-care activities) Mouth sores or sore areas in your mouth Bad headache Dizziness or lightheadedness Large weight gain over a short period of time General self-care tips while undergoing treatment discussed were as follows. Written materials were provided covering in detail and additional self care tips. Drink at least 2-3 quarts (8-10 glasses) of no-caffeinated beverages daily unless you are instructed otherwise and empty your bladder frequently Report any concerning symptoms to your healthcare team Avoid crowds and sick people, wash your hands frequently Use a soft bristled toothbrush, rinse three times a day with 1 tsp baking soda or 1 tsp salt mixed with warm water Avoid any mouthwashes or oral and skin products containing alcohol or fragrances Use electric razors to avoid cutting yourself Avoid contact sports or activities that could cause head injury or bleeding Avoid sun exposure, wear SPF 15 or higher, wear protective clothing Get plenty of rest, meter your activities Maintain good nutrition Avoid alcoholic beverages Attend your scheduled appointments and lab draws Treatment regimen reviewed and medications were discussed with attention to specific side effects and self care for the pt?s treatment regimen. Pt encouraged to keep a list of questions that may arise after this teaching session and bring back to next clinic visit to address. All pt's questions answered at this time. Pt verbalizes understanding of treatment plan.
[2019-11-30 08:49] LABS: Add Manual Diff / Slide Review NO; Basophils Absolute Auto 100 /uL (0-100); Basophils Percent Auto 1.3 % (0-2); Eosinophils Absolute Auto 700 /uL (0-450); Eosinophils Percent Auto 11.8 % (2-4); Hematocrit 37.2 % (36-46); Hemoglobin 12.6 g/dL (12.0-16.0); Lymphocytes Absolute Auto 1800 /uL (1100-4500); Lymphocytes Percent Auto 30.3 % (25-40); Mean Corpuscular HGB Conc 33.8 % (30-36); Mean Corpuscular Volume 91.7 fL (80-100); Monocytes Absolute Auto 500 /uL (0-900); Monocytes Percent Auto 8.6 % (3-14); Neutrophils Absolute Auto 2900 /uL (1500-7000); Platelet Count 245 X10^3/uL (150-400); Red Blood Cell Count 4.06 X10^6/uL (4.0-5.2); White Blood Cell Count 6.1 X10^3/uL (4.5-11.0)
[2019-11-30 09:00] VITALS: BP 124/93; PULSE 83; RESP 18; TEMP 36.7; O2SAT 97
[2019-11-30 09:03] LABS: Albumin 3.8 g/dL (3.5-5.0); Albumin Globulin Ratio 1.4 (1.0-2.8); Alkaline Phosphatase 81 U/L (38-126); Aspartate Aminotransferase 24 IU/L (14-36); BUN Creatinine Ratio 33.9 (6-22); Bilirubin Total 0.4 mg/dL (0.2-1.3); Blood Urea Nitrogen 19 mg/dL (7-17); Calcium 9.1 mg/dL (8.4-10.2); Carbon Dioxide 26 mmol/L (22-32); Chloride 108 mmol/L (98-107); Estimated Glomerular Filt Rate > 60.0 mL/min (>60); Globulin 2.8 g/dL (1.7-4.1); Glucose 91 mg/dL (80-110); HEMOLYSIS < 15 (0-50); Potassium 3.9 mmol/L (3.4-5.1); Sodium 141 mmol/L (137-145); Total Protein 6.6 g/dL (6.3-8.2)
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
[2019-11-30] MEDS: SODIUM CHLORIDE 0.9% 500 ML 250 ML IV (09:47)
[2019-11-30] MEDS: ONDANSETRON 16 MG in SODIUM CHLORIDE 0.9% 50 ML 232 ML IV (10:31)
[2019-11-30 14:26] LABS: Alanine Aminotransferase 22 IU/L (<35)
--- NOTE | 2019-12-01 09:51 | PC.NURSE ---
Called to check on pt post day one chemo. Pt reports feeling tired but good. Denies N/V, able to eat dinner last night w/o difficulty. Scheduled for injection today at 14:30.
[2019-12-01] MEDS: PEGFILGRASTIM-CBQV 6 MG/0.6 ML SYRINGE SUBCUT (14:41)
[2019-12-01 14:54] VITALS: BP 134/86; PULSE 84; RESP 18; O2SAT 97
--- NOTE | 2019-12-05 12:00 | PC.NURSE ---
Called pt to check in after first chemo dose. Pt had previous SOB r/t asthma which was improved with her inhaler use. Pt reports eating apples and cereal. Pt did previously have diarrhea, but none today to report. Pt c/o mouth, throat, and tongue soreness. This nurse advised pt to use warm water and baking soda mouth rinse. Pt temp was 96.9, no fever reported in the last week. No emesis reported. Pt c/o 8/10 OCAMPO which went to 5/10 with pain medication. Pt was instructed when to seek emergency medical care and to call the clinic is symptoms worsen. Pt verbalized understanding. Provider aware, no new orders.
--- NOTE | 2019-12-06 16:36 | PC.NURSE ---
PATIENT CALLED REPORTING STOMACH CRAMPS, ABDOMINAL SWELLING, DIAHRREA ABOUT 6 TIMES A DAY, STOMACH CRAMPS, SORE THROAT AND WHITE TONGUE, BACK PAIN, FATIGUE . SHE STATES NEVER HAVING FELT THIS SICK BEFORE. SHE DENIES FEVER OR CHILLS, DENIES PAIN OR BURNING WITH URINATION AND IS URINATING PLENTY. SHE STATES ALSO TO BE TAKING IN PLENTY OF FLUIDS AND EATING A SMALL AMOUNT. SHE WALKED DOWNSTAIRS TO MEASURE O2 SAT WHILE NURSE ON PHONE REPORTING SATS OF 96, NO SOB. SHE STATED THE BAKING SODA RINSES ADVISED YESTERDAY DID NOT HELP. SHE HAS NOT TAKEN IMMODIUM AND WAS ADVISED TO GET SOME. REPORT MADE TO DR. CORONA WHO RECOMMENDED PATIENT COME IN FOR FLUIDS AND LABS AND HE WOULD SEE HER BRIEFLY. THIS WAS COMMUNICATED TO PATIENT ALONG WITH TELEPHONE NUMBER OF [facility]. SHE STATES SHE CANNOT LEAVE HER MOTHER BUT HER BROTHER IS PRESENT. IN A F/U CALL SHE TOLD NURSE SHE ARRANGED FOR IMMODIUM AND THE ZINC (50MG 1-3 TIMES/DAY) WHICH DR CORONA RECOMMENDED TO BE DELIVERED BY [facility] BUT NOT UNTIL TOMORROW. SHE STATED PER COMING TO CLINIC, I DONT KNOW, I CANNOT GET OUT OF BED. YET TOLD THIS NURSE SHE HAD WALKED DOWNSTAIRS IN THE EARLIER CALL. PATIENT STATED SHE WOULD CALL BACK WHETHER SHE WILL COME IN.
--- NOTE | 2019-12-08 08:07 | PC.NURSE ---
Late note: Called pt yesterday afternoon to assess any improvement in her symptoms from the previous day. Pt does reports improvement, however, still c/o fatigue, some nausea, back pain, and headache. Pt states I don't know if I can go through this again. Pt reports taking in plenty of fluids and is eating pretty good. Reports diarrhea has subsided. Pt declines to come into clinic for IV fluids and m60a2 armor crewman, expresses difficulty with transportation. Reiterated to pt the importance of post chemo labs and benefits of IV fluids, IV Zofran, and m60a2 armor crewman to assist with symptom management. Pt declined taxi option, does not want to get into a dirty cab during COVID. According to pt, her brother is unable to provide transportation to clinic because he is getting new carpet and has to help his move furniture. Pt also reports her SO isn't able to bring her in for lab draw and RV evaluation because he has court stuff and has to work on a couple of cars. Reminded pt about information discussed during initial chemo teaching and importance of lab draws, electrolyte balance, m60a2 armor crewman and symptom management. This RN also suggested pt come into clinic much earlier after chemo administration in order to get ahead of symptoms. Pt expresses uncertainty r/t next chemo dose, I just don't think I can do this, if it's going to be like this. Listen to pt voice concerns. Provided reassurance to pt and discussed benefits of addressing symptoms much earlier after chemo day, with the goal of staying ahead of symptoms. After much discussion, pt finally agreed to come into clinic for port chemo labs on . Pt able to find transportation she felt comfortable with and appt made.
[2019-12-08 13:52] LABS: Hemoglobin 12.1 g/dL (12.0-16.0); Mean Corpuscular Volume 90.8 fL (80-100)
[2019-12-08 13:53] LABS: Alanine Aminotransferase 24 IU/L (<35); Albumin 3.6 g/dL (3.5-5.0); Albumin Globulin Ratio 1.3 (1.0-2.8); Alkaline Phosphatase 107 U/L (38-126); Aspartate Aminotransferase 28 IU/L (14-36); BUN Creatinine Ratio 24.1 (6-22); Bilirubin Total 0.3 mg/dL (0.2-1.3); Blood Urea Nitrogen 14 mg/dL (7-17); Carbon Dioxide 29 mmol/L (22-32); Chloride 106 mmol/L (98-107); Estimated Glomerular Filt Rate > 60.0 mL/min (>60); Globulin 2.8 g/dL (1.7-4.1); Glucose 102 mg/dL (80-110); HEMOLYSIS < 15 (0-50); Potassium 3.5 mmol/L (3.4-5.1); Sodium 139 mmol/L (137-145); Total Protein 6.4 g/dL (6.3-8.2)
[2019-12-08 13:56] LABS: Hematocrit 36.7 % (36-46); Mean Corpuscular HGB Conc 32.9 % (30-36); Mean Corpuscular Hemoglobin 29.8 PG (26-34); Platelet Count 227 X10^3/uL (150-400); Red Blood Cell Count 4.04 X10^6/uL (4.0-5.2); Red Cell Distribution Width 14.3 % (11.6-14.8)
[2019-12-08 13:58] LABS: Add Manual Diff / Slide Review YES
[2019-12-08 14:07] VITALS: BP 111/74; RESP 18; TEMP 36.9; O2SAT 96
[2019-12-08 14:21] LABS: Neutrophils Absolute Manual 14740 /uL (3000-5900); Total Cells Counted 100
[2019-12-08 14:22] LABS: Dohle Bodies 2+; Toxic Granulation Present
--- NOTE | 2019-12-08 14:52 | PC.NURSE ---
Pt c/o bloating to stomach had to go up a size in jeans. Reports BM this morning, +BT to all [address] Rojas aware; would like pt to have 3 consecutive days of PO steroids, will give first dose, IV, here in clinic per orders. 500mls of IVF ordered. 8mg PO Dex BID RX [facility]. Rojas, pt aware and agreeable to plan. Pt also reports itching to vaginal area feels avi like poison naveed. Denies burning with urination, denies frequency and urgency. Dr. Rojas recommends OTC yeast treatment, pt verbalizes understanding.
[2019-12-08] MEDS: DEXAMETHASONE 10 MG/ML VIAL 8 MG IV (15:49)
[2019-12-08] MEDS: SODIUM CHLORIDE 0.9% 500 ML 1000 ML IV (15:51)
--- NOTE | 2019-12-13 12:22 | PC.NURSE ---
PATIENT WISHES ALTERNATIVE TO CHEMO PER HER PHONE CALL ON 12/11. ABDOMEN SWELLING HAS GONE DOWN ONLY SLIGHTLY PER HER REPORT, NO SWELLING OF LE, VULVAR ITCHING AND SWELLING HAS IMPROVED, SHE CONTINUES TO HAVE HEADACHE. THIS NURSE ADVISED HER TO DISCUSS ALL ISSUES WITH DR DUVALL AT HER UPCOMING APPT ON 12/20.
--- NOTE | 2019-12-20 14:05 | ONC.MSW ---
Description: T/C re: Insurance and Tx Concerns Activity: Returned call to patient re: her lapse of insurance coverage. She states that her software design manager did not submit the proper paperwork to her HR department in order to continue her coverage while on medical leave. She's addressing this with her Union, and is asking assistance from POWER TOOL REPAIR TECHNICIAN in getting some medical documentation and physician signature in order to get this corrected. She will bring these forms in to this POWER TOOL REPAIR TECHNICIAN by tomorrow. Pt also shared that she is no longer interested in continuing with her current chemotherapy regimen, and is planning to meet with Dr. Rojas during her next appt. on 01/09 to discuss other possible tx options that would be less toxic and better tolerated. No further needs identified at this time.
--- NOTE | 2019-12-22 15:03 | ONC.MSW ---
Description: FMLA Activity: Completed the error on pt's FMLA forms, faxed back to her corporate HR Dept. per pt's request.
--- NOTE | 2020-01-17 16:28 | PC.NURSE ---
Pt called inquiring about port-o-cath care. Pt reported not having insurance and would have to pay for port flush out of pocket. This RN spoke with the pt ocular care aide and she advised she would look into having the pt reimbursed through the patient relief fund 01/18/2020. Pt should be scheduled for 12/20/2019 port flush once finances are confirmed with navigator. Dr. Rooney also expressed that we should encourage the pt to f/u with him to explore other supportive care for her breast CA, or at least encourage her to f/u with another oncologist if she preferred.
--- NOTE | 2020-01-18 08:41 | ONC.SCHED ---
cancel for now while waiting on a response from patient navigator regarding financial assistance for the port flush
--- NOTE | 2020-01-24 13:51 | ONC.SCHED ---
Pt. called regarding insurance issue. Pt. states that she spoke to [facility] and states that her insurance is active through 03/17/20. Reference #[id number]. Pt. is scheduled for a port lab draw on 02/08/20 and a visit with Dr. Rojas on 02/13/20.
--- NOTE | 2020-01-24 14:57 | ONC.SCHED ---
I called [facility] and [facility] and they directed me to call the local union to verify eligibility. I called them at [phone] and through the automated prompts confirmed that the patient has eligibility from 12/17/19-03/17/20. Confirmation # is [id number]. I will update this in the patient's account to reflect as verified.
[2020-02-08 14:11] LABS: Add Manual Diff / Slide Review NO; Basophils Absolute Auto 100 /uL (0-100); Eosinophils Absolute Auto 300 /uL (0-450); Eosinophils Percent Auto 3.9 % (2-4); Hematocrit 37.6 % (36-46); Hemoglobin 12.7 g/dL (12.0-16.0); Lymphocytes Absolute Auto 1700 /uL (1100-4500); Lymphocytes Percent Auto 23.6 % (25-40); Mean Corpuscular HGB Conc 33.8 % (30-36); Mean Corpuscular Hemoglobin 30.9 PG (26-34); Mean Corpuscular Volume 91.6 fL (80-100); Monocytes Absolute Auto 400 /uL (0-900); Monocytes Percent Auto 5.6 % (3-14); Neutrophils Absolute Auto 4600 /uL (1500-7000); Neutrophils Percent Auto 65.9 % (50-75); Platelet Count 240 X10^3/uL (150-400); Red Cell Distribution Width 13.9 % (11.6-14.8); White Blood Cell Count 7.1 X10^3/uL (4.5-11.0)
[2020-02-08 14:22] LABS: Alanine Aminotransferase 16 IU/L (<35); Albumin 3.9 g/dL (3.5-5.0); Albumin Globulin Ratio 1.4 (1.0-2.8); Alkaline Phosphatase 85 U/L (38-126); Aspartate Aminotransferase 19 IU/L (14-36); BUN Creatinine Ratio 33.9 (6-22); Bilirubin Total 0.3 mg/dL (0.2-1.3); Blood Urea Nitrogen 20 mg/dL (7-17); Calcium 9.1 mg/dL (8.4-10.2); Carbon Dioxide 28 mmol/L (22-32); Chloride 107 mmol/L (98-107); Estimated Glomerular Filt Rate > 60.0 mL/min (>60); Globulin 2.7 g/dL (1.7-4.1); Glucose 100 mg/dL (80-110); HEMOLYSIS < 15 (0-50); Potassium 3.8 mmol/L (3.4-5.1); Sodium 141 mmol/L (137-145); Total Protein 6.6 g/dL (6.3-8.2)
[2020-02-13 12:12] VITALS: BP 127/85; PULSE 91; RESP 18; TEMP 36.3; O2SAT 97
--- NOTE | 2020-02-13 12:33 | P.PNONC_ITS ---
PN -Subjective Interval history: ID/CC: 58 year old with left breast cancer. Oncology History: 59-year-old female with left sided ER positive (99%, strong), MS positive (>85%, strong), Her2 negative, and clinically node negative breast invasive carcinoma after ultrasound-guided biopsy on 08/10/2019. Pathology is positive for lymphovascular invasion. Patient did not notice any lumps by herself and it was screening mammogram detected. No left axillary lymph node enlargement on physical examination or ultrasound study. On 09/30/2019,she underwent left skin sparing mastectomy and left axillary sentinel node biopsy. The final pathology showed invasive carcinoma with mixed lobular and ductal features, the largest invasive focus measuring 5.6 cm, and 2 of 5 sentinel nodes positive for micrometastatic carcinoma, grade 3, unifocal, without DCIS, with LCIS, all margins negative except posterior lateral margin that was positive for invasive carcinoma, Pathology staging pT3 pN1mi(sn). Interval Events: On 11/30/2019, patient started adjuvant chemotherapy with docetaxel/Cytoxan. Patient received only 1 cycle of the chemotherapy. Patient tolerated poorly. Patient reported severe fatigue. She said she was not able to get out of the bed for a week. Patient said that during this period of time he had no appetite, he was having fever, he was feeling all 4. It took almost 6 weeks before she felt human again. Therefore she decided to move forward with radiation therapy. However due to insurance issues, radiation therapy has been delayed and she is scheduled for radiation therapy tomorrow. - Patient Self-Reported Symptoms SR Constitution: Weight loss/gain SR ears, nose, mouth, throat issues: Congestion, Cough SR respiratory issues: Difficulty breathing SR Skin issues: Blistering or peeling, Hair loss or scalp prob SR Gastrointestinal issues: Heartburn - Additional ROS All systems PM: reviewed and no additional remarkable complaints except as stated Home Medications and Allergies Home Medications Medication Instructions Recorded Confirmed Type albuterol sulfate 90 mcg/actuation 2 puff INHALATION Q4HP PRN #1 inh 04/18/19 02/13/20 Rx aerosol inhaler docusate sodium 100 mg PO BID #20 cap 09/30/19 02/13/20 Rx docusate sodium 100 mg PO BID #60 cap 11/16/19 02/13/20 Rx hydrocodone-acetaminophen 1 tab PO Q4-6H PRN #30 tab 11/16/19 02/13/20 Rx ondansetron HCl 8 mg PO Q8H PRN #30 tab 11/16/19 02/13/20 Rx prochlorperazine maleate 10 mg PO Q6H PRN #30 tab 11/16/19 02/13/20 Rx alprazolam 0.5 mg tablet 0.5 mg PO BID PRN #60 tab 12/01/19 02/13/20 Rx Allergies Allergy/AdvReac Type Severity Reaction Status Date / Time cefuroxime Allergy Severe throat Verified 11/24/19 10:15 swelling clarithromycin Allergy Severe Swelling Verified 11/24/19 10:15 of Lip/Tongue/Throat clindamycin Allergy Severe SOB/THROAT Verified 11/24/19 10:15 SWELL levofloxacin Allergy Severe Difficulty Verified 11/24/19 10:15 Breathing metronidazole Allergy Severe Swelling Verified 11/24/19 10:15 of Lip/Tongue/Throat moxifloxacin Allergy Severe Difficulty Verified 11/24/19 10:15 Breathing nitrofurantoin Allergy Severe Swelling Verified 11/24/19 10:15 of Lip/Tongue/Throat NSAIDS (Non-Steroidal Allergy Severe SOB/THROAT Verified 11/24/19 10:15 Anti-Inflamma SWELLS Sulfa (Sulfonamide Allergy Severe Swelling Verified 11/24/19 10:15 Antibiotics) of Lip/Tongue/Throat tramadol Allergy Severe Swelling Verified 11/24/19 10:15 of Lip/Tongue/Throat terbinafine Allergy Mild Nausea, Verified 11/24/19 10:15 diarrhea oxycodone Allergy Confusion Verified 11/24/19 10:15 buspirone AdvReac Severe numbness Verified 11/24/19 10:15 to lips, hands, feet, SOB, nausea/ vomiting omeprazole AdvReac Intermediate Diarrhea Verified 11/24/19 10:15 Quinolones AdvReac Intermediate Diarrhea Verified 11/24/19 10:15 sertraline AdvReac Mild DIZZY, Verified 11/24/19 10:15 FLOATING Exam Vital signs: Vital Signs Temp Pulse Resp BP Pulse Ox 02/13/20 12:12 97.4 F L 91 H 18 127/85 97 Intake and Output 02/12/20 02/13/20 02/13/20 23:59 07:59 15:59 Other: Weight 67 kg Patient Weight 02/13/20 23:59 Weight 67 kg Narrative: ECOG 1 Vitals above reviewed Constitutional: WDWN, well nourished, and well groomed. NAD. Pleasant and cooperative. HEENT: NCAT, EOMI, PERRLA. Anicteric sclera. Neck: Supple and symmetrical, no palpable masses. No palpable thyromegaly. Respiratory: No use of accessory muscles. CTAB, no wheezes. Cardiovascular: RRR, S1 and S2 normal, no M/G/R. No edema of lower extremities. Abdomen: Soft, NTND, no palpable masses. No palpable hepatosplenomegaly. No hernia. Lymphatic: no palpable palpable lymph nodes in the neck, axillae, or groins. Musculoskeletal: normal gait and station Neurological: AOx3, CN II-XII grossly intact. No focal motor or sensory deficit. Psychiatric: Normal memory. Normal mood and affect. Breast Exam: deferred. Results - Labs Laboratory Last Values WBC 7.1 X10^3/uL (4.5-11.0) 02/08/20 14:00 RBC 4.10 X10^6/uL (4.0-5.2) 02/08/20 14:00 Hgb 12.7 g/dL (12.0-16.0) 02/08/20 14:00 Hct 37.6 % (36-46) 02/08/20 14:00 MCV 91.6 fL (80-100) 02/08/20 14:00 MCH 30.9 PG (26-34) 02/08/20 14:00 MCHC 33.8 % (30-36) 02/08/20 14:00 RDW 13.9 % (11.6-14.8) 02/08/20 14:00 Plt Count 240 X10^3/uL (150-400) 02/08/20 14:00 Neut % (Auto) 65.9 % (50-75) 02/08/20 14:00 Lymph % (Auto) 23.6 % (25-40) L 02/08/20 14:00 [place] % (Auto) 5.6 % (3-14) 02/08/20 14:00 Eos % (Auto) 3.9 % (2-4) 02/08/20 14:00 Baso % (Auto) 1.0 % (0-2) 02/08/20 14:00 Neut # (Auto) 4600 /uL (9645-7321) 02/08/20 14:00 Lymph # (Auto) 1700 /uL (9263-4790) 02/08/20 14:00 [place] # (Auto) 400 /uL (0-900) 02/08/20 14:00 Eos # (Auto) 300 /uL (0-450) 02/08/20 14:00 Baso # (Auto) 100 /uL (0-100) 02/08/20 14:00 Total Counted 100 12/08/19 13:42 Seg Neutrophils % 49.0 % (38-70) 12/08/19 13:42 Band Neutrophils % 18.0 % (3-7) H 12/08/19 13:42 Lymphocytes % (Manual) 10.0 % (25-45) L 12/08/19 13:42 Atypical Lymphs % 4.0 % (-0) H 12/08/19 13:42 Monocytes % (Manual) 9.0 % (2-11) 12/08/19 13:42 Eosinophils % (Manual) 2.0 % (2-4) 12/08/19 13:42 Metamyelocytes % 6.0 % (-0) H 12/08/19 13:42 Myelocytes % 2.0 % (-0) H 12/08/19 13:42 Neutrophils # (Manual) 78355 /uL (6980-8590) H 12/08/19 13:42 Toxic Granulation Present H 12/08/19 13:42 Dohle Bodies 2+ H 12/08/19 13:42 RBC Morphology See below 12/08/19 13:42 Sodium 141 mmol/L (137-145) 02/08/20 14:00 Potassium 3.8 mmol/L (3.4-5.1) 02/08/20 14:00 Chloride 107 mmol/L (98-107) 02/08/20 14:00 Carbon Dioxide 28 mmol/L (22-32) 02/08/20 14:00 BUN 20 mg/dL (7-17) H 02/08/20 14:00 Creatinine 0.59 mg/dL (0.52-1.04) 02/08/20 14:00 Estimated GFR > 60.0 mL/min (>60) 02/08/20 14:00 BUN/Creatinine Ratio 33.9 (6-22) H 02/08/20 14:00 Glucose 100 mg/dL (80-110) 02/08/20 14:00 Calcium 9.1 mg/dL (8.4-10.2) 02/08/20 14:00 Total Bilirubin 0.3 mg/dL (0.2-1.3) 02/08/20 14:00 AST 19 IU/L (14-36) 02/08/20 14:00 ALT 16 IU/L (<35) 02/08/20 14:00 Alkaline Phosphatase 85 U/L (38-126) 02/08/20 14:00 Total Protein 6.6 g/dL (6.3-8.2) 02/08/20 14:00 Albumin 3.9 g/dL (3.5-5.0) 02/08/20 14:00 Globulin 2.7 g/dL (1.7-4.1) 02/08/20 14:00 Albumin/Globulin Ratio 1.4 (1.0-2.8) 02/08/20 14:00 - Imaging Additional studies: Procedures Local excision of lesion of breast (05/05/12) Assessment and Plan (1) 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, estrogen receptor positive Impression Left mastectomy for a 5.3 cm grade 3 invasive carcinoma with mixed ductal and lobular features, micro-metastases in 2 of 5 sentinel nodes, hormone receptor positive HER2 negative with negative margins. She received 1 cycle of docetaxel/Cytoxan and was not able to tolerate. She developed grade 3 fatigue. Assessment: Patient has already been scheduled for radiation therapy starting tomorrow. I talked with her that the chemotherapy usually should happen before the radiation therapy. However sometimes we do chemotherapy after the radiation therapy. Patient apparently cannot tolerate docetaxel with Cytoxan. I discussed with patient about other chemotherapy regimens including Adriamycin Cytoxan followed by paclitaxel and the regimen of CMF. Given that patient has poor tolerability to docetaxel and Cytoxan, it is likely that she will have a lot of more problems with the other regimens. I discussed with the patient that since patient has a limited number of quinton involvement, I would recommend Oncotype DX study of the tumor samples. Depending on the score, we will decide if patient will need adjuvant chemotherapy. I will see the patient after the radiation therapy is done. Recommendation 1. XRT as scheduled starting tomorrow 2. OncoType Dx study of surgical sample 3. Consider Adjuvant 4. Follow-up appointment with me after XRT
--- NOTE | 2020-02-14 08:56 | ONC.SCHED ---
OncoType DX requisition faxed to [employer] on 02/13/20.
--- NOTE | 2020-02-20 13:07 | ONC.MSW ---
Description: FMLA Forms Activity: Completed Medical Certification forms for pt's HR department in order to extend her FMLA leave. Extended to the end of March, as she has just started 6-weeks of radiation therapy. Also, sent her proof of income to Erin in Patient Accounts in order to complete her [employer] application.
--- NOTE | 2020-02-27 12:51 | ONC.MSW ---
Addendum entered and electronically signed by SHERRON Galeana 02/27/20 14:02: [employer]OM OPERATOR also faxed the disability forms that were needed by [facility] and [facility], through pt's employer, per her request. Original Note: Description: [employer] Application-cont. Activity: [employer] ROOM OPERATOR faxed pt's financial records from [place] in order to complete her [employer] application for [employer]. Will f/u with pt once a determination of approval or denial has been made.
--- NOTE | 2020-04-03 15:04 | ONC.MSW ---
Description: T/C re: loss of insurance, private pay for provider visit/port flush Activity: Called pt back re: her having lost her insurance through her employer, and discussed options for her to private pay for her appt. w/Dr. Rojas at the end of April. She continues to have problems in getting her leave of absence pay, and her employer mishandled her multiple forms that she's needed to submit, and thus now has lost her insurance as of March. Discussed the availability of the In-Person Assistors to help her choose a [place] insurance plan, [employer] left message for the IPA to f/u with pt. Left message on the Estimates line with CPT codes in order to determine the cost of the port flush and provider appt., explained to pt that she still has $760 available in the MRF to assist with paying for this. Will plan to call pt back tomorrow with the estimate.
--- NOTE | 2020-04-09 13:06 | P.PNONC_ITS ---
PN -Subjective Interval history: ID/CC: 59 year old with left breast cancer. Oncology History: 59-year-old female with left sided ER positive (99%, strong), RI positive (>85%, strong), Her2 negative, and clinically node negative breast invasive carcinoma after ultrasound-guided biopsy on 08/10/2019. Pathology is positive for lymphovascular invasion. Patient did not notice any lumps by herself and it was screening mammogram detected. No left axillary lymph node enlargement on physical examination or ultrasound study. On 09/30/2019,she underwent left skin sparing mastectomy and left axillary sentinel node biopsy. The final pathology showed invasive carcinoma with mixed lobular and ductal features, the largest invasive focus measuring 5.6 cm, and 2 of 5 sentinel nodes positive for micrometastatic carcinoma, grade 3, unifocal, without DCIS, with LCIS, all margins negative except posterior lateral margin that was positive for invasive carcinoma, Pathology staging pT3 pN1mi(sn). Interval Events: On 11/30/2019, patient started adjuvant chemotherapy with docetaxel/Cytoxan. Patient received only 1 cycle of the chemotherapy. Patient tolerated poorly. Patient reported severe fatigue. She said she was not able to get out of the bed for a week. Patient said that during this period of time he had no appetite, he was having fever, he was feeling aweful. It took almost 6 weeks before she felt human again. Therefore she decided to move forward with radiation therapy. Meanwhile we sent the surgical sample for Oncotype DX score. The plan is to decide on chemotherapy based on the Oncotype DX score result. The Oncotype DX score came back only at 10, with estimated distant recurrence risk at 9 years of 12% with aromatase inhibitor or tamoxifen alone. No apparent benefit for adjuvant chemotherapy. She received adjuvant radiation therapy from 02/14/2020 to 03/26/2020. She has tolerated the radiation therapy well. Patient currently is recovering from the most recent radiation therapy. She has some tenderness and erythema of the left breast and left axilla. Patient is having problems going to sleep because of the pain. Otherwise patient reports good energy good appetite. No shortness of breath. No abdominal pain no diarrhea and no constipation. - Patient Self-Reported Symptoms SR Constitution: Weight loss/gain SR ears, nose, mouth, throat issues: Congestion, Cough SR respiratory issues: Difficulty breathing SR Skin issues: Blistering or peeling, Hair loss or scalp prob SR Gastrointestinal issues: Heartburn - Additional ROS All systems PM: reviewed and no additional remarkable complaints except as stated Home Medications and Allergies Home Medications Medication Instructions Recorded Confirmed Type albuterol sulfate 90 mcg/actuation 2 puff INHALATION Q4HP PRN #1 inh 04/18/19 02/13/20 Rx aerosol inhaler docusate sodium 100 mg PO BID #20 cap 09/30/19 02/13/20 Rx docusate sodium 100 mg PO BID #60 cap 11/16/19 02/13/20 Rx hydrocodone-acetaminophen 1 tab PO Q4-6H PRN #30 tab 11/16/19 02/13/20 Rx ondansetron HCl 8 mg PO Q8H PRN #30 tab 11/16/19 02/13/20 Rx prochlorperazine maleate 10 mg PO Q6H PRN #30 tab 11/16/19 02/13/20 Rx alprazolam 0.5 mg tablet 0.5 mg PO BID PRN #60 tab 12/01/19 02/13/20 Rx anastrozole 1 mg PO DAILY #90 tab 04/09/20 Rx hydrocodone-acetaminophen 1 tab PO Q8H PRN #60 tab 04/09/20 Rx Allergies Allergy/AdvReac Type Severity Reaction Status Date / Time cefuroxime Allergy Severe throat Verified 11/24/19 10:15 swelling clarithromycin Allergy Severe Swelling Verified 11/24/19 10:15 of Lip/Tongue/Throat clindamycin Allergy Severe SOB/THROAT Verified 11/24/19 10:15 SWELL levofloxacin Allergy Severe Difficulty Verified 11/24/19 10:15 Breathing metronidazole Allergy Severe Swelling Verified 11/24/19 10:15 of Lip/Tongue/Throat moxifloxacin Allergy Severe Difficulty Verified 11/24/19 10:15 Breathing nitrofurantoin Allergy Severe Swelling Verified 11/24/19 10:15 of Lip/Tongue/Throat NSAIDS (Non-Steroidal Allergy Severe SOB/THROAT Verified 11/24/19 10:15 Anti-Inflamma SWELLS Sulfa (Sulfonamide Allergy Severe Swelling Verified 11/24/19 10:15 Antibiotics) of Lip/Tongue/Throat tramadol Allergy Severe Swelling Verified 11/24/19 10:15 of Lip/Tongue/Throat terbinafine Allergy Mild Nausea, Verified 11/24/19 10:15 diarrhea oxycodone Allergy Confusion Verified 11/24/19 10:15 buspirone AdvReac Severe numbness Verified 11/24/19 10:15 to lips, hands, feet, SOB, nausea/ vomiting omeprazole AdvReac Intermediate Diarrhea Verified 11/24/19 10:15 Quinolones AdvReac Intermediate Diarrhea Verified 11/24/19 10:15 sertraline AdvReac Mild DIZZY, Verified 11/24/19 10:15 FLOATING Exam Vital signs: 04/09/20 14:06 Last Vital Signs Temp 97.8 F 04/09/20 13:45 Pulse 97 H 04/09/20 13:45 Resp 16 04/09/20 13:45 BP 111/70 04/09/20 13:45 Pulse Ox 96 04/09/20 13:45 Narrative: ECOG 1 Vitals above reviewed Constitutional: WDWN, well nourished, and well groomed. NAD. Pleasant and cooperative. HEENT: NCAT, EOMI, PERRLA. Anicteric sclera. Neck: Supple and symmetrical, no palpable masses. No palpable thyromegaly. Respiratory: No use of accessory muscles. CTAB, no wheezes. Cardiovascular: RRR, S1 and S2 normal, no M/G/R. No edema of lower extremities. Abdomen: Soft, NTND, no palpable masses. No palpable hepatosplenomegaly. No hernia. Lymphatic: no palpable palpable lymph nodes in the neck, axillae, or groins. Musculoskeletal: normal gait and station Neurological: AOx3, CN II-XII grossly intact. No focal motor or sensory deficit. Psychiatric: Normal memory. Normal mood and affect. Breast Exam: deferred. Results - Labs Laboratory Last Values WBC 7.1 X10^3/uL (4.5-11.0) 02/08/20 14:00 RBC 4.10 X10^6/uL (4.0-5.2) 02/08/20 14:00 Hgb 12.7 g/dL (12.0-16.0) 02/08/20 14:00 Hct 37.6 % (36-46) 02/08/20 14:00 MCV 91.6 fL (80-100) 02/08/20 14:00 MCH 30.9 PG (26-34) 02/08/20 14:00 MCHC 33.8 % (30-36) 02/08/20 14:00 RDW 13.9 % (11.6-14.8) 02/08/20 14:00 Plt Count 240 X10^3/uL (150-400) 02/08/20 14:00 Neut % (Auto) 65.9 % (50-75) 02/08/20 14:00 Lymph % (Auto) 23.6 % (25-40) L 02/08/20 14:00 [place] % (Auto) 5.6 % (3-14) 02/08/20 14:00 Eos % (Auto) 3.9 % (2-4) 02/08/20 14:00 Baso % (Auto) 1.0 % (0-2) 02/08/20 14:00 Neut # (Auto) 4600 /uL (7203-1387) 02/08/20 14:00 Lymph # (Auto) 1700 /uL (8748-7928) 02/08/20 14:00 [place] # (Auto) 400 /uL (0-900) 02/08/20 14:00 Eos # (Auto) 300 /uL (0-450) 02/08/20 14:00 Baso # (Auto) 100 /uL (0-100) 02/08/20 14:00 Total Counted 100 12/08/19 13:42 Seg Neutrophils % 49.0 % (38-70) 12/08/19 13:42 Band Neutrophils % 18.0 % (3-7) H 12/08/19 13:42 Lymphocytes % (Manual) 10.0 % (25-45) L 12/08/19 13:42 Atypical Lymphs % 4.0 % (-0) H 12/08/19 13:42 Monocytes % (Manual) 9.0 % (2-11) 12/08/19 13:42 Eosinophils % (Manual) 2.0 % (2-4) 12/08/19 13:42 Metamyelocytes % 6.0 % (-0) H 12/08/19 13:42 Myelocytes % 2.0 % (-0) H 12/08/19 13:42 Neutrophils # (Manual) 81252 /uL (2725-2551) H 12/08/19 13:42 Toxic Granulation Present H 12/08/19 13:42 Dohle Bodies 2+ H 12/08/19 13:42 RBC Morphology See below 12/08/19 13:42 Sodium 141 mmol/L (137-145) 02/08/20 14:00 Potassium 3.8 mmol/L (3.4-5.1) 02/08/20 14:00 Chloride 107 mmol/L (98-107) 02/08/20 14:00 Carbon Dioxide 28 mmol/L (22-32) 02/08/20 14:00 BUN 20 mg/dL (7-17) H 02/08/20 14:00 Creatinine 0.59 mg/dL (0.52-1.04) 02/08/20 14:00 Estimated GFR > 60.0 mL/min (>60) 02/08/20 14:00 BUN/Creatinine Ratio 33.9 (6-22) H 02/08/20 14:00 Glucose 100 mg/dL (80-110) 02/08/20 14:00 Calcium 9.1 mg/dL (8.4-10.2) 02/08/20 14:00 Total Bilirubin 0.3 mg/dL (0.2-1.3) 02/08/20 14:00 AST 19 IU/L (14-36) 02/08/20 14:00 ALT 16 IU/L (<35) 02/08/20 14:00 Alkaline Phosphatase 85 U/L (38-126) 02/08/20 14:00 Total Protein 6.6 g/dL (6.3-8.2) 02/08/20 14:00 Albumin 3.9 g/dL (3.5-5.0) 02/08/20 14:00 Globulin 2.7 g/dL (1.7-4.1) 02/08/20 14:00 Albumin/Globulin Ratio 1.4 (1.0-2.8) 02/08/20 14:00 - Imaging Additional studies: Procedures Local excision of lesion of breast (05/05/12) Assessment and Plan (1) 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, estrogen receptor positive Impression Left mastectomy for a 5.3 cm grade 3 invasive carcinoma with mixed ductal and lobular features, micro-metastases in 2 of 5 sentinel nodes, hormone receptor positive HER2 negative with negative margins. She received 1 cycle of docetaxel/Cytoxan and was not able to tolerate. She developed grade 3 fatigue. Therefore we decided to send the Oncotype DX score. The score came back 10. Chemotherapy is indicated. Patient then underwent adjuvant radiation therapy from 02/13/2022 03/26/2020. Assessment: First of I explained to the patient that no chemotherapy is indicated given the low Oncotype DX score. Next I talked with the patient that the left axillary and the left breast tenderness and discomfort are clearly related to the most recent radiation therapy. I am referring the patient to physical therapy for possible evaluation and therapy. I focused my discussion mainly on adjuvant endocrine therapy. Patient is postmenopausal. I recommended anastrozole 1 mg once a day for total of 5 years. I talked with the patient that the medication is associated with postmenopausal-like signs and symptoms, for example, hot flashes, night sweats or mood changes and also is associated with bone loss and joint pain. Patient voiced understanding. I encouraged the patient to take calcium and vitamin-D throughout. Recommendation 1. Hydrocodone 5/325 1# q8h prn, 60# for left breast/axilla pain 2. Anastrazole 1 mg daily 3. Calcium and Vitamin D 4. Referral to Physical Therapy 5. Referral back to Dr. Sarah for port removal 6. Follow-up in 3 months, CBC, CMP
[2020-04-09 13:45] VITALS: BP 111/70; PULSE 97; RESP 16; TEMP 36.6; O2SAT 96
--- NOTE | 2020-04-16 12:57 | ONC.SCHED ---
Per Casandra @ [facility], she will call patient to schedule port removal.
--- NOTE | 2020-04-16 13:40 | ONC.SCHED ---
Per Halima in PT: she will call patient to schedule.
--- NOTE | 2020-04-16 15:56 | ONC.MSW ---
Description: Leave of Absence Letter Activity: Per pt request, this HEALTH EDUCATION SPECIALIST completed a letter requesting she extend her Leave of Absence for an additional 3-months, starting 04/17/01 through 07/16/00. Faxed to her HR technical services coordinator as requested.
--- NOTE | 2020-04-26 09:26 | PC.NURSE ---
Addendum entered by Bhavna Colvin R.N. 04/26/20 09:53: Re:side effects Per Dr. Rojas, pt instructed to stop Anastrozole at this time and f/u with him in 2-3 weeks to discuss starting pt on a new medication. Pt aware, verbalizes understanding. F/U order entered and solid surface fabricator aware. Original Note: Anastrozole side effects: Pt called c/o -11/24 joint pain unrelieved with Vicodin. Pt reports that Provider mentioned Cymbalta might help with joint pain at most recent appointment. Will notify provider and update pt with response.
[2020-05-08 10:41] LABS: Add Manual Diff / Slide Review NO; Basophils Absolute Auto 100 /uL (0-100); Basophils Percent Auto 0.9 % (0-2); Eosinophils Absolute Auto 500 /uL (0-450); Eosinophils Percent Auto 7.1 % (2-4); Hematocrit 39.8 % (36-46); Hemoglobin 13.4 g/dL (12.0-16.0); Lymphocytes Absolute Auto 1200 /uL (1100-4500); Lymphocytes Percent Auto 17.7 % (25-40); Mean Corpuscular HGB Conc 33.6 % (30-36); Mean Corpuscular Hemoglobin 30.4 PG (26-34); Mean Corpuscular Volume 90.3 fL (80-100); Monocytes Absolute Auto 700 /uL (0-900); Monocytes Percent Auto 9.8 % (3-14); Neutrophils Absolute Auto 4500 /uL (1500-7000); Neutrophils Percent Auto 64.5 % (50-75); Platelet Count 222 X10^3/uL (150-400); Red Blood Cell Count 4.41 X10^6/uL (4.0-5.2)
[2020-05-08 10:52] LABS: Alanine Aminotransferase 15 IU/L (<35); Albumin 3.9 g/dL (3.5-5.0); Albumin Globulin Ratio 1.3 (1.0-2.8); Alkaline Phosphatase 80 U/L (38-126); Aspartate Aminotransferase 19 IU/L (14-36); BUN Creatinine Ratio 31.7 (6-22); Bilirubin Total 0.3 mg/dL (0.2-1.3); Blood Urea Nitrogen 20 mg/dL (7-17); Calcium 9.1 mg/dL (8.4-10.2); Carbon Dioxide 31 mmol/L (22-32); Chloride 109 mmol/L (98-107); Estimated Glomerular Filt Rate > 60.0 mL/min (>60); Globulin 3.1 g/dL (1.7-4.1); Glucose 109 mg/dL (80-110); HEMOLYSIS < 15 (0-50); Potassium 3.6 mmol/L (3.4-5.1); Sodium 141 mmol/L (137-145)
[2020-05-10 10:23] VITALS: BP 125/88; PULSE 85; RESP 18; TEMP 37; O2SAT 97
--- NOTE | 2020-05-10 10:37 | ONC.PN ---
PN -Subjective Interval history: ID/CC: 59 year old with left breast cancer. Oncology History: 59-year-old female with left sided ER positive (99%, strong), TX positive (>85%, strong), Her2 negative, and clinically node negative breast invasive carcinoma after ultrasound-guided biopsy on 08/10/2019. Pathology is positive for lymphovascular invasion. Patient did not notice any lumps by herself and it was screening mammogram detected. No left axillary lymph node enlargement on physical examination or ultrasound study. On 09/30/2019,she underwent left skin sparing mastectomy and left axillary sentinel node biopsy. The final pathology showed invasive carcinoma with mixed lobular and ductal features, the largest invasive focus measuring 5.6 cm, and 2 of 5 sentinel nodes positive for micrometastatic carcinoma, grade 3, unifocal, without DCIS, with LCIS, all margins negative except posterior lateral margin that was positive for invasive carcinoma, Pathology staging pT3 pN1mi(sn). On 11/30/2019, patient started adjuvant chemotherapy with docetaxel/Cytoxan. Patient received only 1 cycle of the chemotherapy. Patient tolerated poorly. Patient reported severe fatigue. She said she was not able to get out of the bed for a week. Patient said that during this period of time he had no appetite, he was having fever, he was feeling aweful. It took almost 6 weeks before she felt human again. Therefore she decided to move forward with radiation therapy. Meanwhile we sent the surgical sample for Oncotype DX score. The plan is to decide on chemotherapy based on the Oncotype DX score result. The Oncotype DX score came back only at 10, with estimated distant recurrence risk at 9 years of 12% with aromatase inhibitor or tamoxifen alone. No apparent benefit for adjuvant chemotherapy. She received adjuvant radiation therapy from 02/14/2020 to 03/26/2020 Interval Events: Since her previous visit on 04/09/2020, patient tried anastrozole. Patient said that she stopped after taking only 4 pills. Patient reported terrible joint pain. Her left ankle was so pain for that she was hardly able to move. Patient described the experience as bad case of flu. She has tried Tylenol that did not work at all. Otherwise patient after stopping the anastrozole, has been doing very well. The pain has completely resolved. - Patient Self-Reported Symptoms SR Constitution: Night Sweats SR ears, nose, mouth, throat issues: Congestion, Cough SR respiratory issues: Shortness of breath SR Cardiovascular issues: Chest pain, discomfort, tightness SR Skin issues: Nail changes SR Gastrointestinal issues: Nausea, Heartburn - Additional ROS All systems PM: reviewed and no additional remarkable complaints except as stated Home Medications and Allergies Home Medications Medication Instructions Recorded Confirmed Type albuterol sulfate 90 mcg/actuation 2 puff INHALATION Q4HP PRN #1 inh 04/18/19 02/13/20 Rx aerosol inhaler docusate sodium 100 mg PO BID #20 cap 09/30/19 05/10/20 Rx docusate sodium 100 mg PO BID #60 cap 11/16/19 05/10/20 Rx hydrocodone-acetaminophen 1 tab PO Q4-6H PRN #30 tab 11/16/19 05/10/20 Rx alprazolam 0.5 mg tablet 0.5 mg PO BID PRN #60 tab 12/01/19 05/10/20 Rx hydrocodone-acetaminophen 1 tab PO Q8H PRN #60 tab 04/09/20 05/10/20 Rx letrozole 2.5 mg PO DAILY #30 tab 05/10/20 Rx Allergies Allergy/AdvReac Type Severity Reaction Status Date / Time cefuroxime Allergy Severe throat Verified 11/24/19 10:15 swelling clarithromycin Allergy Severe Swelling Verified 11/24/19 10:15 of Lip/Tongue/Throat clindamycin Allergy Severe SOB/THROAT Verified 11/24/19 10:15 SWELL levofloxacin Allergy Severe Difficulty Verified 11/24/19 10:15 Breathing metronidazole Allergy Severe Swelling Verified 11/24/19 10:15 of Lip/Tongue/Throat moxifloxacin Allergy Severe Difficulty Verified 11/24/19 10:15 Breathing nitrofurantoin Allergy Severe Swelling Verified 11/24/19 10:15 of Lip/Tongue/Throat NSAIDS (Non-Steroidal Allergy Severe SOB/THROAT Verified 11/24/19 10:15 Anti-Inflamma SWELLS Sulfa (Sulfonamide Allergy Severe Swelling Verified 11/24/19 10:15 Antibiotics) of Lip/Tongue/Throat tramadol Allergy Severe Swelling Verified 11/24/19 10:15 of Lip/Tongue/Throat terbinafine Allergy Mild Nausea, Verified 11/24/19 10:15 diarrhea oxycodone Allergy Confusion Verified 11/24/19 10:15 buspirone AdvReac Severe numbness Verified 11/24/19 10:15 to lips, hands, feet, SOB, nausea/ vomiting omeprazole AdvReac Intermediate Diarrhea Verified 11/24/19 10:15 Quinolones AdvReac Intermediate Diarrhea Verified 11/24/19 10:15 sertraline AdvReac Mild DIZZY, Verified 11/24/19 10:15 FLOATING Exam Vital signs: Vital Signs Temp Pulse Resp BP Pulse Ox 05/10/20 10:23 98.6 F 85 18 125/88 97 Intake and Output 05/09/20 05/10/20 05/10/20 23:59 07:59 15:59 Other: Weight 68.1 kg Patient Weight 05/10/20 23:59 Weight 68.1 kg Narrative: ECOG 1 Vitals above reviewed Constitutional: WDWN, well nourished, and well groomed. NAD. Pleasant and cooperative. HEENT: NCAT, EOMI, PERRLA. Anicteric sclera. Neck: Supple and symmetrical, no palpable masses. No palpable thyromegaly. Respiratory: No use of accessory muscles. CTAB, no wheezes. Cardiovascular: RRR, S1 and S2 normal, no M/G/R. No edema of lower extremities. Abdomen: Soft, NTND, no palpable masses. No palpable hepatosplenomegaly. No hernia. Lymphatic: no palpable palpable lymph nodes in the neck, axillae, or groins. Musculoskeletal: normal gait and station Neurological: AOx3, CN II-XII grossly intact. No focal motor or sensory deficit. Psychiatric: Normal memory. Normal mood and affect. Breast Exam: deferred. Results - Labs Laboratory Last Values WBC 7.0 X10^3/uL (4.5-11.0) 05/08/20 10:33 RBC 4.41 X10^6/uL (4.0-5.2) 05/08/20 10:33 Hgb 13.4 g/dL (12.0-16.0) 05/08/20 10:33 Hct 39.8 % (36-46) 05/08/20 10:33 MCV 90.3 fL (80-100) 05/08/20 10:33 MCH 30.4 PG (26-34) 05/08/20 10:33 MCHC 33.6 % (30-36) 05/08/20 10:33 RDW 14.0 % (11.6-14.8) 05/08/20 10:33 Plt Count 222 X10^3/uL (150-400) 05/08/20 10:33 Neut % (Auto) 64.5 % (50-75) 05/08/20 10:33 Lymph % (Auto) 17.7 % (25-40) L 05/08/20 10:33 [place] % (Auto) 9.8 % (3-14) 05/08/20 10:33 Eos % (Auto) 7.1 % (2-4) H 05/08/20 10:33 Baso % (Auto) 0.9 % (0-2) 05/08/20 10:33 Neut # (Auto) 4500 /uL (3092-8319) 05/08/20 10:33 Lymph # (Auto) 1200 /uL (1162-7068) 05/08/20 10:33 [place] # (Auto) 700 /uL (0-900) 05/08/20 10:33 Eos # (Auto) 500 /uL (0-450) H 05/08/20 10:33 Baso # (Auto) 100 /uL (0-100) 05/08/20 10:33 Total Counted 100 12/08/19 13:42 Seg Neutrophils % 49.0 % (38-70) 12/08/19 13:42 Band Neutrophils % 18.0 % (3-7) H 12/08/19 13:42 Lymphocytes % (Manual) 10.0 % (25-45) L 12/08/19 13:42 Atypical Lymphs % 4.0 % (-0) H 12/08/19 13:42 Monocytes % (Manual) 9.0 % (2-11) 12/08/19 13:42 Eosinophils % (Manual) 2.0 % (2-4) 12/08/19 13:42 Metamyelocytes % 6.0 % (-0) H 12/08/19 13:42 Myelocytes % 2.0 % (-0) H 12/08/19 13:42 Neutrophils # (Manual) 88621 /uL (3861-1897) H 12/08/19 13:42 Toxic Granulation Present H 12/08/19 13:42 Dohle Bodies 2+ H 12/08/19 13:42 RBC Morphology See below 12/08/19 13:42 Sodium 141 mmol/L (137-145) 05/08/20 10:33 Potassium 3.6 mmol/L (3.4-5.1) 05/08/20 10:33 Chloride 109 mmol/L (98-107) H 05/08/20 10:33 Carbon Dioxide 31 mmol/L (22-32) 05/08/20 10:33 BUN 20 mg/dL (7-17) H 05/08/20 10:33 Creatinine 0.63 mg/dL (0.52-1.04) 05/08/20 10:33 Estimated GFR > 60.0 mL/min (>60) 05/08/20 10:33 BUN/Creatinine Ratio 31.7 (6-22) H 05/08/20 10:33 Glucose 109 mg/dL (80-110) 05/08/20 10:33 Calcium 9.1 mg/dL (8.4-10.2) 05/08/20 10:33 Total Bilirubin 0.3 mg/dL (0.2-1.3) 05/08/20 10:33 AST 19 IU/L (14-36) 05/08/20 10:33 ALT 15 IU/L (<35) 05/08/20 10:33 Alkaline Phosphatase 80 U/L (38-126) 05/08/20 10:33 Total Protein 7.0 g/dL (6.3-8.2) 05/08/20 10:33 Albumin 3.9 g/dL (3.5-5.0) 05/08/20 10:33 Globulin 3.1 g/dL (1.7-4.1) 05/08/20 10:33 Albumin/Globulin Ratio 1.3 (1.0-2.8) 05/08/20 10:33 - Imaging Additional studies: Procedures Local excision of lesion of breast (05/05/12) Assessment and Plan (1) 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, estrogen receptor positive Impression Left mastectomy for a 5.3 cm grade 3 invasive carcinoma with mixed ductal and lobular features, micro-metastases in 2 of 5 sentinel nodes, hormone receptor positive HER2 negative with negative margins. She received 1 cycle of docetaxel/Cytoxan and was not able to tolerate. She developed grade 3 fatigue. Therefore we decided to send the Oncotype DX score. The score came back 10. Chemotherapy is indicated. Patient then underwent adjuvant radiation therapy from 02/13/2022 03/26/2020. Assessment: Patient has terrible experience with anastrozole. She only took 4 doses and stopped. She was complaining whole-body pain and joint pain and was having problems ambulating. I talked with the patient that I would recommend that we stop the anastrozole. Will try the letrozole and see if she is able to tolerate. Overall the plan is to continue to try the aromatase inhibitor. If she is not able to tolerate, we will use tamoxifen. Patient voiced understanding. Recommendation 1. Hydrocodone 5/325 1# q8h prn, 60# for left breast/axilla pain 2. Stop Anastrazole 1 mg daily 3. Start Letrazole 2.5 mg daily 4. Calcium and Vitamin D 5. Follow-up in 4 weeks, CBC, CMP
--- NOTE | 2020-06-18 12:06 | PC.NURSE ---
Pt called today to report she is having trouble sleeping. She is also having issues with her hydrocodone causing itchiness in her scalp. Joint pain is 6/10 and goes down to 3/10 with hydrocodone. She wants to try a different pain medication. This RN counseled her to take melatonin to help with her sleep issue and she will report back. Please advise on pain medication. Making provider aware with this note.
[2020-07-12 15:16] VITALS: BP 129/85; PULSE 82; RESP 18; TEMP 36.8; O2SAT 96
--- NOTE | 2020-07-12 15:24 | ONC.PN ---
PN -Subjective Interval history: ID/CC: 59 year old with left breast cancer. Oncology History: 59-year-old female with left sided ER positive (99%, strong), NM positive (>85%, strong), Her2 negative, and clinically node negative breast invasive carcinoma after ultrasound-guided biopsy on 08/10/2019. Pathology is positive for lymphovascular invasion. Patient did not notice any lumps by herself and it was screening mammogram detected. No left axillary lymph node enlargement on physical examination or ultrasound study. On 09/30/2019,she underwent left skin sparing mastectomy and left axillary sentinel node biopsy. The final pathology showed invasive carcinoma with mixed lobular and ductal features, the largest invasive focus measuring 5.6 cm, and 2 of 5 sentinel nodes positive for micrometastatic carcinoma, grade 3, unifocal, without DCIS, with LCIS, all margins negative except posterior lateral margin that was positive for invasive carcinoma, Pathology staging pT3 pN1mi(sn). On 11/30/2019, patient started adjuvant chemotherapy with docetaxel/Cytoxan. Patient received only 1 cycle of the chemotherapy. Patient tolerated poorly. Patient reported severe fatigue. She said she was not able to get out of the bed for a week. Patient said that during this period of time he had no appetite, he was having fever, he was feeling aweful. It took almost 6 weeks before she felt human again. Therefore she decided to move forward with radiation therapy. Meanwhile we sent the surgical sample for Oncotype DX score. The plan is to decide on chemotherapy based on the Oncotype DX score result. The Oncotype DX score came back only at 10, with estimated distant recurrence risk at 9 years of 12% with aromatase inhibitor or tamoxifen alone. No apparent benefit for adjuvant chemotherapy. She received adjuvant radiation therapy from 02/14/2020 to 03/26/2020 Interval Events: Since her visit on 04/09/2020, patient tried anastrozole. Patient said that she stopped after taking only 4 pills. Patient reported terrible joint pain. Her left ankle was so pain for that she was hardly able to move. Patient described the experience as bad case of flu. She has tried Tylenol that did not work at all. Otherwise patient after stopping the anastrozole, has been doing very well. The pain has completely resolved. After her visit with me on 05/10/2020, She started letrazole and has tolerated Letrazole very well with only mild hot flashes. September 15, 2020, visit with Dr. Domingo Pemberton, plastic surgery is scheduled. - Patient Self-Reported Symptoms SR Constitution: Night Sweats SR ears, nose, mouth, throat issues: Congestion, Cough SR respiratory issues: Shortness of breath SR Cardiovascular issues: Chest pain, discomfort, tightness SR Skin issues: Nail changes SR Gastrointestinal issues: Heartburn - Additional ROS All systems PM: reviewed and no additional remarkable complaints except as stated Home Medications and Allergies Home Medications Medication Instructions Recorded Confirmed Type albuterol sulfate 90 mcg/actuation 2 puff INHALATION Q4-6H PRN #18 g 06/01/20 07/12/20 Rx aerosol inhaler alprazolam 0.5 mg tablet 0.5 mg PO BID PRN #60 tab 06/01/20 07/12/20 Rx acetaminophen-codeine 1 tab PO Q6H PRN #60 tab 06/21/20 07/12/20 Rx trazodone 50 mg tablet 50 mg PO BEDTIME PRN #30 tab 06/25/20 07/12/20 Rx letrozole 2.5 mg PO DAILY #30 tab 07/12/20 Rx Allergies Allergy/AdvReac Type Severity Reaction Status Date / Time cefuroxime Allergy Severe throat Verified 06/01/20 11:58 swelling clarithromycin Allergy Severe Swelling Verified 06/01/20 11:58 of Lip/Tongue/Throat clindamycin Allergy Severe SOB/THROAT Verified 06/01/20 11:58 SWELL levofloxacin Allergy Severe Difficulty Verified 06/01/20 11:58 Breathing metronidazole Allergy Severe Swelling Verified 06/01/20 11:58 of Lip/Tongue/Throat moxifloxacin Allergy Severe Difficulty Verified 06/01/20 11:58 Breathing nitrofurantoin Allergy Severe Swelling Verified 06/01/20 11:58 of Lip/Tongue/Throat NSAIDS (Non-Steroidal Allergy Severe SOB/THROAT Verified 06/01/20 11:58 Anti-Inflamma SWELLS Sulfa (Sulfonamide Allergy Severe Swelling Verified 06/01/20 11:58 Antibiotics) of Lip/Tongue/Throat tramadol Allergy Severe Swelling Verified 06/01/20 11:58 of Lip/Tongue/Throat terbinafine Allergy Mild Nausea, Verified 06/01/20 11:58 diarrhea oxycodone Allergy Confusion Verified 06/01/20 11:58 buspirone AdvReac Severe numbness Verified 06/01/20 11:58 to lips, hands, feet, SOB, nausea/ vomiting omeprazole AdvReac Intermediate Diarrhea Verified 06/01/20 11:58 Quinolones AdvReac Intermediate Diarrhea Verified 06/01/20 11:58 sertraline AdvReac Mild DIZZY, Verified 06/01/20 11:58 FLOATING Exam Vital signs: Vital Signs Temp Pulse Resp BP Pulse Ox 07/12/20 15:16 98.2 F 82 18 129/85 96 Intake and Output 07/11/20 07/12/20 07/12/20 23:59 07:59 15:59 Other: Weight 68.9 kg Patient Weight 07/12/20 23:59 Weight 68.9 kg Narrative: ECOG 1 Vitals above reviewed Constitutional: WDWN, well nourished, and well groomed. NAD. Pleasant and cooperative. HEENT: NCAT, EOMI, PERRLA. Anicteric sclera. Neck: Supple and symmetrical, no palpable masses. No palpable thyromegaly. Respiratory: No use of accessory muscles. CTAB, no wheezes. Cardiovascular: RRR, S1 and S2 normal, no M/G/R. No edema of lower extremities. Abdomen: Soft, NTND, no palpable masses. No palpable hepatosplenomegaly. No hernia. Lymphatic: no palpable palpable lymph nodes in the neck, axillae, or groins. Musculoskeletal: normal gait and station Neurological: AOx3, CN II-XII grossly intact. No focal motor or sensory deficit. Psychiatric: Normal memory. Normal mood and affect. Breast Exam: deferred. Results - Labs Laboratory Last Values WBC 7.0 X10^3/uL (4.5-11.0) 05/08/20 10:33 RBC 4.41 X10^6/uL (4.0-5.2) 05/08/20 10:33 Hgb 13.4 g/dL (12.0-16.0) 05/08/20 10:33 Hct 39.8 % (36-46) 05/08/20 10:33 MCV 90.3 fL (80-100) 05/08/20 10:33 MCH 30.4 PG (26-34) 05/08/20 10:33 MCHC 33.6 % (30-36) 05/08/20 10:33 RDW 14.0 % (11.6-14.8) 05/08/20 10:33 Plt Count 222 X10^3/uL (150-400) 05/08/20 10:33 Neut % (Auto) 64.5 % (50-75) 05/08/20 10:33 Lymph % (Auto) 17.7 % (25-40) L 05/08/20 10:33 [place] % (Auto) 9.8 % (3-14) 05/08/20 10:33 Eos % (Auto) 7.1 % (2-4) H 05/08/20 10:33 Baso % (Auto) 0.9 % (0-2) 05/08/20 10:33 Neut # (Auto) 4500 /uL (3790-2829) 05/08/20 10:33 Lymph # (Auto) 1200 /uL (1169-7214) 05/08/20 10:33 [place] # (Auto) 700 /uL (0-900) 05/08/20 10:33 Eos # (Auto) 500 /uL (0-450) H 05/08/20 10:33 Baso # (Auto) 100 /uL (0-100) 05/08/20 10:33 Total Counted 100 12/08/19 13:42 Seg Neutrophils % 49.0 % (38-70) 12/08/19 13:42 Band Neutrophils % 18.0 % (3-7) H 12/08/19 13:42 Lymphocytes % (Manual) 10.0 % (25-45) L 12/08/19 13:42 Atypical Lymphs % 4.0 % (-0) H 12/08/19 13:42 Monocytes % (Manual) 9.0 % (2-11) 12/08/19 13:42 Eosinophils % (Manual) 2.0 % (2-4) 12/08/19 13:42 Metamyelocytes % 6.0 % (-0) H 12/08/19 13:42 Myelocytes % 2.0 % (-0) H 12/08/19 13:42 Neutrophils # (Manual) 95595 /uL (0457-0565) H 12/08/19 13:42 Toxic Granulation Present H 12/08/19 13:42 Dohle Bodies 2+ H 12/08/19 13:42 RBC Morphology See below 12/08/19 13:42 Sodium 141 mmol/L (137-145) 05/08/20 10:33 Potassium 3.6 mmol/L (3.4-5.1) 05/08/20 10:33 Chloride 109 mmol/L (98-107) H 05/08/20 10:33 Carbon Dioxide 31 mmol/L (22-32) 05/08/20 10:33 BUN 20 mg/dL (7-17) H 05/08/20 10:33 Creatinine 0.63 mg/dL (0.52-1.04) 05/08/20 10:33 Estimated GFR > 60.0 mL/min (>60) 05/08/20 10:33 BUN/Creatinine Ratio 31.7 (6-22) H 05/08/20 10:33 Glucose 109 mg/dL (80-110) 05/08/20 10:33 Calcium 9.1 mg/dL (8.4-10.2) 05/08/20 10:33 Total Bilirubin 0.3 mg/dL (0.2-1.3) 05/08/20 10:33 AST 19 IU/L (14-36) 05/08/20 10:33 ALT 15 IU/L (<35) 05/08/20 10:33 Alkaline Phosphatase 80 U/L (38-126) 05/08/20 10:33 Total Protein 7.0 g/dL (6.3-8.2) 05/08/20 10:33 Albumin 3.9 g/dL (3.5-5.0) 05/08/20 10:33 Globulin 3.1 g/dL (1.7-4.1) 05/08/20 10:33 Albumin/Globulin Ratio 1.3 (1.0-2.8) 05/08/20 10:33 - Imaging Additional studies: Procedures Local excision of lesion of breast (05/05/12) Assessment and Plan (1) 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, estrogen receptor positive Impression Left mastectomy for a 5.3 cm grade 3 invasive carcinoma with mixed ductal and lobular features, micro-metastases in 2 of 5 sentinel nodes, hormone receptor positive HER2 negative with negative margins. She received 1 cycle of docetaxel/Cytoxan and was not able to tolerate. She developed grade 3 fatigue. Therefore we decided to send the Oncotype DX score. The score came back 10. Chemotherapy is not indicated. Patient then underwent adjuvant radiation therapy from 02/13/2022 to 03/26/2020. Assessment: She said she tolerated letrozole very well. The only reaction is hot flashes or night sweats which she has to change the sheets every 4 days. She does not have any joint pain. She does not have any other problems. The labs are also within the normal range including CBC and CMP. I talked with her that I will continue the letrozole. Recommendation 1. Continue Hydrocodone 5/325 1# q8h prn, for left breast/axilla pain 2. Continue Letrazole 2.5 mg daily 3. Calcium and Vitamin D 4. Follow-up in 6 months CBC, CMP
--- NOTE | 2020-07-16 11:43 | ONC.MSW ---
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 She will p/u later today up at the front. No further needs are identified at this time.
[2020-12-13 14:44] LABS: Add Manual Diff / Slide Review NO; Basophils Absolute Auto 0 /uL (0-100); Basophils Percent Auto 0.7 % (0-2); Eosinophils Absolute Auto 300 /uL (0-450); Eosinophils Percent Auto 4.3 % (2-4); Hematocrit 36.9 % (36-46); Hemoglobin 12.2 g/dL (12.0-16.0); Lymphocytes Absolute Auto 1400 /uL (1100-4500); Lymphocytes Percent Auto 21.1 % (25-40); Mean Corpuscular Hemoglobin 29.6 PG (26-34); Mean Corpuscular Volume 89.8 fL (80-100); Monocytes Absolute Auto 400 /uL (0-900); Monocytes Percent Auto 5.6 % (3-14); Neutrophils Absolute Auto 4700 /uL (1500-7000); Neutrophils Percent Auto 68.3 % (50-75); Platelet Count 244 X10^3/uL (150-400); Red Blood Cell Count 4.11 X10^6/uL (4.0-5.2); Red Cell Distribution Width 14.4 % (11.6-14.8); White Blood Cell Count 6.8 X10^3/uL (4.5-11.0)
[2020-12-13 15:03] LABS: Alanine Aminotransferase 18 IU/L (<35); Albumin 3.6 g/dL (3.5-5.0); Albumin Globulin Ratio 1.2 (1.0-2.8); Alkaline Phosphatase 84 U/L (38-126); Aspartate Aminotransferase 27 IU/L (14-36); BUN Creatinine Ratio 27.3 (6-22); Bilirubin Total 0.2 mg/dL (0.2-1.3); Blood Urea Nitrogen 18 mg/dL (7-17); Calcium 9.3 mg/dL (8.4-10.2); Carbon Dioxide 26 mmol/L (22-32); Chloride 109 mmol/L (98-107); Estimated Glomerular Filt Rate > 60.0 mL/min (>60); Globulin 2.9 g/dL (1.7-4.1); Glucose 129 mg/dL (80-110); HEMOLYSIS 21 (0-50); Potassium 3.8 mmol/L (3.4-5.1); Sodium 141 mmol/L (137-145); Total Protein 6.5 g/dL (6.3-8.2)
--- NOTE | 2021-02-04 11:08 | ONC.PN ---
PN -Subjective Interval history: ID/CC: 60 year old with left breast cancer. Oncology History: 60-year-old female with left sided ER positive (99%, strong), [place] positive (>85%, strong), Her2 negative, and clinically node negative breast invasive carcinoma after ultrasound-guided biopsy on 08/10/2019. Pathology is positive for lymphovascular invasion. Patient did not notice any lumps by herself and it was screening mammogram detected. No left axillary lymph node enlargement on physical examination or ultrasound study. On 09/30/2019,she underwent left skin sparing mastectomy and left axillary sentinel node biopsy. The final pathology showed invasive carcinoma with mixed lobular and ductal features, the largest invasive focus measuring 5.6 cm, and 2 of 5 sentinel nodes positive for micrometastatic carcinoma, grade 3, unifocal, without DCIS, with LCIS, all margins negative except posterior lateral margin that was positive for invasive carcinoma, Pathology staging pT3 pN1mi(sn). On 11/30/2019, patient started adjuvant chemotherapy with docetaxel/Cytoxan. Patient received only 1 cycle of the chemotherapy. Patient tolerated poorly. Patient reported severe fatigue. She said she was not able to get out of the bed for a week. Patient said that during this period of time he had no appetite, he was having fever, he was feeling aweful. It took almost 6 weeks before she felt human again. Therefore she decided to move forward with radiation therapy. Meanwhile we sent the surgical sample for Oncotype DX score. The plan is to decide on chemotherapy based on the Oncotype DX score result. The Oncotype DX score came back only at 10, with estimated distant recurrence risk at 9 years of 12% with aromatase inhibitor or tamoxifen alone. No apparent benefit for adjuvant chemotherapy. She received adjuvant radiation therapy from 02/14/2020 to 03/26/2020 Interval Events: Since her visit on 04/09/2020, patient tried anastrozole. Patient said that she stopped after taking only 4 pills. Patient reported terrible joint pain. Her left ankle was so pain for that she was hardly able to move. Patient described the experience as bad case of flu. She has tried Tylenol that did not work at all. Otherwise patient after stopping the anastrozole, has been doing very well. The pain has completely resolved. After her visit with me on 05/10/2020, She started letrazole. Apparently, she has tolerated letrozole much better than anastrozole. Patient has occasional hot flashes and night sweats. Patient has occasionally joint pain which she took hydrocodone occasionally with significant relief. She denies any shortness of breath or chest pain. She denies any abdominal pain, diarrhea or constipation. But she is complaining right shoulder pain especially after the port was removed. Currently patient is being followed by Dr. Domingo Pemberton, plastic surgery and will have another appointment in 3 weeks. - Patient Self-Reported Symptoms SR Constitution: Night Sweats SR ears, nose, mouth, throat issues: Congestion, Cough SR respiratory issues: Shortness of breath SR Cardiovascular issues: Chest pain, discomfort, tightness SR Skin issues: Nail changes SR Gastrointestinal issues: Heartburn - ROS All systems PM: reviewed and no additional remarkable complaints except as stated Home Medications and Allergies Home Medications Medication Instructions Recorded Confirmed Type albuterol sulfate 90 mcg/actuation 2 puff INHALATION Q4-6H PRN #18 g 06/01/20 02/04/21 Rx aerosol inhaler alprazolam 0.5 mg tablet (Xanax) 0.5 mg PO BID PRN #60 tab 06/01/20 02/04/21 Rx acetaminophen 300 mg-codeine 15 mg 1 tab PO Q6H PRN #60 tab 06/21/20 02/04/21 Rx tablet letrozole 2.5 mg tablet 2.5 mg PO DAILY #30 tab 07/12/20 02/04/21 Rx quetiapine 25 mg tablet 25 - 50 mg PO BEDTIME PRN #60 tab 08/16/20 02/04/21 Rx Allergies Allergy/AdvReac Type Severity Reaction Status Date / Time cefuroxime Allergy Severe throat Verified 02/04/21 10:24 swelling clarithromycin Allergy Severe Swelling Verified 02/04/21 10:24 of Lip/Tongue/Throat clindamycin Allergy Severe SOB/THROAT Verified 02/04/21 10:24 SWELL levofloxacin Allergy Severe Difficulty Verified 02/04/21 10:24 Breathing metronidazole Allergy Severe Swelling Verified 02/04/21 10:24 of Lip/Tongue/Throat moxifloxacin Allergy Severe Difficulty Verified 02/04/21 10:24 Breathing nitrofurantoin Allergy Severe Swelling Verified 02/04/21 10:24 of Lip/Tongue/Throat NSAIDS (Non-Steroidal Allergy Severe SOB/THROAT Verified 02/04/21 10:24 Anti-Inflamma SWELLS Sulfa (Sulfonamide Allergy Severe Swelling Verified 02/04/21 10:24 Antibiotics) of Lip/Tongue/Throat tramadol Allergy Severe Swelling Verified 02/04/21 10:24 of Lip/Tongue/Throat terbinafine Allergy Mild Nausea, Verified 02/04/21 10:24 diarrhea oxycodone Allergy Confusion Verified 02/04/21 10:24 buspirone AdvReac Severe numbness Verified 02/04/21 10:24 to lips, hands, feet, SOB, nausea/ vomiting omeprazole AdvReac Intermediate Diarrhea Verified 02/04/21 10:24 Quinolones AdvReac Intermediate Diarrhea Verified 02/04/21 10:24 sertraline AdvReac Mild DIZZY, Verified 02/04/21 10:24 FLOATING Exam Vital signs: 02/04/21 11:42 Last Vital Signs Temp 98.7 F 02/04/21 11:09 Pulse 95 H 02/04/21 11:09 Resp 16 02/04/21 11:09 BP 117/79 02/04/21 11:09 Pulse Ox 96 02/04/21 11:09 Narrative: ECOG 1 Vitals above reviewed Constitutional: WDWN, well nourished, and well groomed. NAD. Pleasant and cooperative. HEENT: NCAT, EOMI, PERRLA. Anicteric sclera. Neck: Supple and symmetrical, no palpable masses. No palpable thyromegaly. Respiratory: No use of accessory muscles. CTAB, no wheezes. Cardiovascular: RRR, S1 and S2 normal, no M/G/R. No edema of lower extremities. Abdomen: Soft, NTND, no palpable masses. No palpable hepatosplenomegaly. No hernia. Lymphatic: no palpable palpable lymph nodes in the neck, axillae, or groins. Musculoskeletal: normal gait and station Neurological: AOx3, CN II-XII grossly intact. No focal motor or sensory deficit. Psychiatric: Normal memory. Normal mood and affect. Breast Exam: Status post bilateral mastectomy and currently is undergoing reconstruction. No erythema. No palpable lymph nodes in the axilla bilaterally. Results - Labs Laboratory Last Values WBC 6.8 X10^3/uL (4.5-11.0) 12/13/20 14:33 RBC 4.11 X10^6/uL (4.0-5.2) 12/13/20 14:33 Hgb 12.2 g/dL (12.0-16.0) 12/13/20 14:33 Hct 36.9 % (36-46) 12/13/20 14:33 MCV 89.8 fL (80-100) 12/13/20 14:33 MCH 29.6 PG (26-34) 12/13/20 14:33 MCHC 33.0 % (30-36) 12/13/20 14:33 RDW 14.4 % (11.6-14.8) 12/13/20 14:33 Plt Count 244 X10^3/uL (150-400) 12/13/20 14:33 Neut % (Auto) 68.3 % (50-75) 12/13/20 14:33 Lymph % (Auto) 21.1 % (25-40) L 12/13/20 14:33 [place] % (Auto) 5.6 % (3-14) 12/13/20 14:33 Eos % (Auto) 4.3 % (2-4) H 12/13/20 14:33 Baso % (Auto) 0.7 % (0-2) 12/13/20 14:33 Neut # (Auto) 4700 /uL (0181-2501) 12/13/20 14:33 Lymph # (Auto) 1400 /uL (1160-1901) 12/13/20 14:33 [place] # (Auto) 400 /uL (0-900) 12/13/20 14:33 Eos # (Auto) 300 /uL (0-450) 12/13/20 14:33 Baso # (Auto) 0 /uL (0-100) 12/13/20 14:33 Total Counted 100 12/08/19 13:42 Seg Neutrophils % 49.0 % (38-70) 12/08/19 13:42 Band Neutrophils % 18.0 % (3-7) H 12/08/19 13:42 Lymphocytes % (Manual) 10.0 % (25-45) L 12/08/19 13:42 Atypical Lymphs % 4.0 % (-0) H 12/08/19 13:42 Monocytes % (Manual) 9.0 % (2-11) 12/08/19 13:42 Eosinophils % (Manual) 2.0 % (2-4) 12/08/19 13:42 Metamyelocytes % 6.0 % (-0) H 12/08/19 13:42 Myelocytes % 2.0 % (-0) H 12/08/19 13:42 Neutrophils # (Manual) 70419 /uL (7706-0259) H 12/08/19 13:42 Toxic Granulation Present H 12/08/19 13:42 Dohle Bodies 2+ H 12/08/19 13:42 RBC Morphology See below 12/08/19 13:42 Sodium 141 mmol/L (137-145) 12/13/20 14:33 Potassium 3.8 mmol/L (3.4-5.1) 12/13/20 14:33 Chloride 109 mmol/L (98-107) H 12/13/20 14:33 Carbon Dioxide 26 mmol/L (22-32) 12/13/20 14:33 BUN 18 mg/dL (7-17) H 12/13/20 14:33 Creatinine 0.66 mg/dL (0.52-1.04) 12/13/20 14:33 Estimated GFR > 60.0 mL/min (>60) 12/13/20 14:33 BUN/Creatinine Ratio 27.3 (6-22) H 12/13/20 14:33 Glucose 129 mg/dL (80-110) H 12/13/20 14:33 Calcium 9.3 mg/dL (8.4-10.2) 12/13/20 14:33 Total Bilirubin 0.2 mg/dL (0.2-1.3) 12/13/20 14:33 AST 27 IU/L (14-36) 12/13/20 14:33 ALT 18 IU/L (<35) 12/13/20 14:33 Alkaline Phosphatase 84 U/L (38-126) 12/13/20 14:33 Total Protein 6.5 g/dL (6.3-8.2) 12/13/20 14:33 Albumin 3.6 g/dL (3.5-5.0) 12/13/20 14:33 Globulin 2.9 g/dL (1.7-4.1) 12/13/20 14:33 Albumin/Globulin Ratio 1.2 (1.0-2.8) 12/13/20 14:33 - Imaging Additional studies: Procedures Local excision of lesion of breast (05/05/12) Assessment and Plan (1) 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, estrogen receptor positive Impression On 09/30/2019, left mastectomy for a 5.3 cm grade 3 invasive carcinoma with mixed ductal and lobular features, micro-metastases in 2 of 5 sentinel nodes, hormone receptor positive HER2 negative with negative margins. She received 1 cycle of docetaxel/Cytoxan and was not able to tolerate. She developed grade 3 fatigue. Therefore we decided to send the Oncotype DX score. The score came back 10. Chemotherapy is not indicated. Patient then underwent adjuvant radiation therapy from 02/13/2022 to 03/26/2020. Assessment: She has tolerated letrozole very well. I emphasized the importance of taking calcium and vitamin because of the increased risk of bone loss with use of letrozole. Patient voiced understanding. Patient will continue follow-up with Dr. Domingo Tenorio as far as the reconstruction is concerned. For her right shoulder pain, I will refer the patient to massage therapist. Plan: 1. Continue Hydrocodone 5/325 1# q8h prn, for left breast/axilla pain 2. Continue Letrazole 2.5 mg daily 3. Calcium and Vitamin D 4. Referral to massage therapist Ivonne Dotson per patient's request 5. Follow-up in 6 months CBC, CMP
[2021-02-04 11:09] VITALS: BP 117/79; PULSE 95; RESP 16; TEMP 37.1; O2SAT 96
--- NOTE | 2021-02-04 16:43 | ONC.SCHED ---
Left msg. for Ivonne Dotson, massage therapist to get fax number for the referral and to make sure she is taking patients. Also, asked if she takes [employer].
--- NOTE | 2021-02-06 08:36 | ONC.SCHED ---
Received a call back from Ivonne Dotson LMT that Dr. Rojas referred her to. She is not in network with the patient's insurance. I called the patient and got VM to let her know. I also mentioned that she may have out of network benefits that could possibly help her to see this particular LMT. I asked that patient call back to let me know what she would like to do.
--- NOTE | 2021-02-11 09:27 | ONC.SCHED ---
Called patient regarding massage referral. She will just wait for now because her insurance does not cover it.
[2021-07-30 17:34] LABS: Add Manual Diff / Slide Review NO; Basophils Absolute Auto 100 /uL (0-100); Basophils Percent Auto 0.9 % (0-2); Eosinophils Absolute Auto 200 /uL (0-450); Eosinophils Percent Auto 3.5 % (2-4); Hematocrit 37.4 % (36-46); Hemoglobin 12.8 g/dL (12.0-16.0); Lymphocytes Absolute Auto 1400 /uL (1100-4500); Lymphocytes Percent Auto 20.3 % (25-40); Mean Corpuscular HGB Conc 34.2 % (30-36); Mean Corpuscular Hemoglobin 30.2 PG (26-34); Mean Corpuscular Volume 88.4 fL (80-100); Monocytes Absolute Auto 500 /uL (0-900); Monocytes Percent Auto 7.4 % (3-14); Neutrophils Absolute Auto 4800 /uL (1500-7000); Neutrophils Percent Auto 67.9 % (50-75); Platelet Count 258 X10^3/uL (150-400); Red Blood Cell Count 4.23 X10^6/uL (4.0-5.2); Red Cell Distribution Width 13.5 % (11.6-14.8)
[2021-07-30 17:58] LABS: Alanine Aminotransferase 16 IU/L (<35); Albumin 3.9 g/dL (3.5-5.0); Albumin Globulin Ratio 1.2 (1.0-2.8); Alkaline Phosphatase 78 U/L (38-126); Aspartate Aminotransferase 22 IU/L (14-36); BUN Creatinine Ratio 23.9 (6-22); Bilirubin Total 0.4 mg/dL (0.2-1.3); Blood Urea Nitrogen 16 mg/dL (7-17); Carbon Dioxide 24 mmol/L (22-32); Chloride 108 mmol/L (98-107); Estimated Glomerular Filt Rate > 60.0 mL/min (>60); Globulin 3.3 g/dL (1.7-4.1); Glucose 116 mg/dL (80-110); HEMOLYSIS 40 (0-50); Potassium 3.6 mmol/L (3.4-5.1); Sodium 141 mmol/L (137-145); Total Protein 7.2 g/dL (6.3-8.2)
--- NOTE | 2021-08-05 13:25 | P.PNONC_ITS ---
PN -Subjective - Date of Visit Date of visit: 08/06/21 Chief Complaint: Bharati is a 60 year old with left breast cancer. Interval history: In 03/2020, patient first tried anastrozole, but stopped 4 days later due to terrible joint pain affecting left ankle as well as bad case of flu. After her visit with me on 05/10/2020, she started letrazole. She overall has tolerated letrazole well. The main complaint has been dry skin. She has been using OTC moisturizer including Cetaphil. Today, she is also complaining of right shoulder pain. Oncology History: 60-year-old female with left sided ER positive (99%, strong), [place] positive (>85%, strong), Her2 negative, and clinically node negative breast invasive carcinoma after ultrasound-guided biopsy on 08/10/2019. Pathology is positive for lymphovascular invasion. Patient did not notice any lumps by herself and it was screening mammogram detected. No left axillary lymph node enlargement on physical examination or ultrasound study. On 09/30/2019,she underwent left skin sparing mastectomy and left axillary sentinel node biopsy. The final pathology showed invasive carcinoma with mixed lobular and ductal features, the largest invasive focus measuring 5.6 cm, and 2 of 5 sentinel nodes positive for micrometastatic carcinoma, grade 3, unifocal, without DCIS, with LCIS, all margins negative except posterior lateral margin that was positive for invasive carcinoma, Pathology staging pT3 pN1mi(sn). On 11/30/2019, patient started adjuvant chemotherapy with docetaxel/Cytoxan. Patient received only 1 cycle of the chemotherapy. Patient tolerated poorly. Patient reported severe fatigue. She said she was not able to get out of the bed for a week. Patient said that during this period of time he had no appetite, he was having fever, he was feeling aweful. It took almost 6 weeks before she felt human again. Therefore she decided to move forward with radiation therapy. Meanwhile we sent the surgical sample for Oncotype DX score. The plan is to decide on chemotherapy based on the Oncotype DX score result. The Oncotype DX score came back only at 10, with estimated distant recurrence risk at 9 years of 12% with aromatase inhibitor or tamoxifen alone. No apparent benefit for adjuvant chemotherapy. She received adjuvant radiation therapy from 02/14/2020 to 03/26/2020 - Patient Self-Reported Symptoms SR Constitution: Night Sweats SR ears, nose, mouth, throat issues: Congestion, Cough SR respiratory issues: Shortness of breath SR Cardiovascular issues: Chest pain, discomfort, tightness SR Skin issues: Dry skin SR Gastrointestinal issues: Heartburn SR Musculoskeletal issues: Back or neck pain - ROS All Systems: reviewed and no additional remarkable complaints except as stated Home Medications and Allergies Home Medications Medication Instructions Recorded Confirmed Type albuterol sulfate 90 mcg/actuation 2 puff INHALATION Q4-6H PRN #18 g 06/01/20 08/05/21 Rx aerosol inhaler acetaminophen 300 mg-codeine 15 mg 1 tab PO Q6H PRN #60 tab 06/21/20 08/05/21 Rx tablet quetiapine 25 mg tablet 25 - 50 mg PO BEDTIME PRN #60 tab 08/16/20 08/05/21 Rx alprazolam 0.5 mg tablet (Xanax) 0.5 mg PO BID PRN #60 tab 02/22/21 08/05/21 Rx letrozole 2.5 mg tablet 2.5 mg PO DAILY #30 tab 08/05/21 Rx Allergies Allergy/AdvReac Type Severity Reaction Status Date / Time cefuroxime Allergy Severe throat Verified 02/04/21 10:24 swelling clarithromycin Allergy Severe Swelling Verified 02/04/21 10:24 of Lip/Tongue/Throat clindamycin Allergy Severe SOB/THROAT Verified 02/04/21 10:24 SWELL levofloxacin Allergy Severe Difficulty Verified 02/04/21 10:24 Breathing metronidazole Allergy Severe Swelling Verified 02/04/21 10:24 of Lip/Tongue/Throat moxifloxacin Allergy Severe Difficulty Verified 02/04/21 10:24 Breathing nitrofurantoin Allergy Severe Swelling Verified 02/04/21 10:24 of Lip/Tongue/Throat NSAIDS (Non-Steroidal Allergy Severe SOB/THROAT Verified 02/04/21 10:24 Anti-Inflamma SWELLS Sulfa (Sulfonamide Allergy Severe Swelling Verified 02/04/21 10:24 Antibiotics) of Lip/Tongue/Throat tramadol Allergy Severe Swelling Verified 02/04/21 10:24 of Lip/Tongue/Throat terbinafine Allergy Mild Nausea, Verified 02/04/21 10:24 diarrhea oxycodone Allergy Confusion Verified 02/04/21 10:24 buspirone AdvReac Severe numbness Verified 02/04/21 10:24 to lips, hands, feet, SOB, nausea/ vomiting omeprazole AdvReac Intermediate Diarrhea Verified 02/04/21 10:24 Quinolones AdvReac Intermediate Diarrhea Verified 02/04/21 10:24 sertraline AdvReac Mild DIZZY, Verified 02/04/21 10:24 FLOATING Exam Vital signs: Last Vital Signs Temp 98.1 F 08/05/21 13:39 Pulse 83 08/05/21 13:39 Resp 16 08/05/21 13:39 BP 132/81 08/05/21 13:39 Pulse Ox 96 08/05/21 13:39 Narrative: ECOG 1 Vitals above reviewed Constitutional: WDWN, well nourished, and well groomed. NAD. Pleasant and cooperative. HEENT: NCAT, EOMI, PERRLA. Anicteric sclera. Neck: Supple and symmetrical, no palpable masses. No palpable thyromegaly. Respiratory: No use of accessory muscles. CTAB, no wheezes. Cardiovascular: RRR, S1 and S2 normal, no M/G/R. No edema of lower extremities. Abdomen: Soft, NTND, no palpable masses. No palpable hepatosplenomegaly. No hernia. Lymphatic: no palpable palpable lymph nodes in the neck, or axillae. Musculoskeletal: normal gait and station Neurological: AOx3, CN II-XII grossly intact. No focal motor or sensory deficit. Psychiatric: Normal memory. Normal mood and affect. Breast Exam: Deferred Results - Labs Laboratory Last Values WBC 7.0 X10^3/uL (4.5-11.0) 07/30/21 17:24 RBC 4.23 X10^6/uL (4.0-5.2) 07/30/21 17:24 Hgb 12.8 g/dL (12.0-16.0) 07/30/21 17:24 Hct 37.4 % (36-46) 07/30/21 17:24 MCV 88.4 fL (80-100) 07/30/21 17:24 MCH 30.2 PG (26-34) 07/30/21 17:24 MCHC 34.2 % (30-36) 07/30/21 17:24 RDW 13.5 % (11.6-14.8) 07/30/21 17:24 Plt Count 258 X10^3/uL (150-400) 07/30/21 17:24 Neut % (Auto) 67.9 % (50-75) 07/30/21 17:24 Lymph % (Auto) 20.3 % (25-40) L 07/30/21 17:24 [place] % (Auto) 7.4 % (3-14) 07/30/21 17:24 Eos % (Auto) 3.5 % (2-4) 07/30/21 17:24 Baso % (Auto) 0.9 % (0-2) 07/30/21 17:24 Neut # (Auto) 4800 /uL (3179-9845) 07/30/21 17:24 Lymph # (Auto) 1400 /uL (9716-3377) 07/30/21 17:24 [place] # (Auto) 500 /uL (0-900) 07/30/21 17:24 Eos # (Auto) 200 /uL (0-450) 07/30/21 17:24 Baso # (Auto) 100 /uL (0-100) 07/30/21 17: Total Counted 100 12/08/19 13:42 Seg Neutrophils % 49.0 % (38-70) 12/08/19 13:42 Band Neutrophils % 18.0 % (3-7) H 12/08/19 13:42 Lymphocytes % (Manual) 10.0 % (25-45) L 12/08/19 13:42 Atypical Lymphs % 4.0 % (-0) H 12/08/19 13:42 Monocytes % (Manual) 9.0 % (2-11) 12/08/19 13:42 Eosinophils % (Manual) 2.0 % (2-4) 12/08/19 13:42 Metamyelocytes % 6.0 % (-0) H 12/08/19 13:42 Myelocytes % 2.0 % (-0) H 12/08/19 13:42 Neutrophils # (Manual) 48019 /uL (0514-9577) H 12/08/19 13:42 Toxic Granulation Present H 12/08/19 13:42 Dohle Bodies 2+ H 12/08/19 13:42 RBC Morphology See below 12/08/19 13:42 Sodium 141 mmol/L (137-145) 07/30/21 17:24 Potassium 3.6 mmol/L (3.4-5.1) 07/30/21 17:24 Chloride 108 mmol/L (98-107) H 07/30/21 17:24 Carbon Dioxide 24 mmol/L (22-32) 07/30/21 17:24 BUN 16 mg/dL (7-17) 07/30/21 17:24 Creatinine 0.67 mg/dL (0.52-1.04) 07/30/21 17:24 Estimated GFR > 60.0 mL/min (>60) 07/30/21 17:24 BUN/Creatinine Ratio 23.9 (6-22) H 07/30/21 17:24 Glucose 116 mg/dL (80-110) H 07/30/21 17:24 Calcium 9.0 mg/dL (8.4-10.2) 07/30/21 17:24 Total Bilirubin 0.4 mg/dL (0.2-1.3) 07/30/21 17:24 AST 22 IU/L (14-36) 07/30/21 17:24 ALT 16 IU/L (<35) 07/30/21 17:24 Alkaline Phosphatase 78 U/L (38-126) 07/30/21 17:24 Total Protein 7.2 g/dL (6.3-8.2) 07/30/21 17:24 Albumin 3.9 g/dL (3.5-5.0) 07/30/21 17:24 Globulin 3.3 g/dL (1.7-4.1) 07/30/21 17:24 Albumin/Globulin Ratio 1.2 (1.0-2.8) 07/30/21 17:24 - Imaging Additional studies: Procedures Local excision of lesion of breast (05/05/12) Assessment and Plan (1) 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, estrogen receptor positive Bharati is a 60 year old female with left breast HR+, HER2- mixed ductal and lobular carcinoma for which she underwent left mastectomy on 09/30/2019. Micro- metastases in 2 of 5 sentinel nodes were noted. Margins were negative. She received 1 cycle of docetaxel/Cytoxan and was not able to tolerate. She developed grade 3 fatigue. Therefore we decided to send the Oncotype DX score. The score came back 10. Chemotherapy was deemed not indicated. Patient then underwent adjuvant radiation therapy from 02/14/2020 to 03/26/2020. On 04/09/2020, patient tried anastrozole but had to stop after taking only 4 pills due to terrible joint pain. From 05/10/2020, she started letrazole. Assessment: She has tolerated letrozole very well. I emphasized the importance of taking calcium and vitamin because of the increased risk of bone loss with use of letrozole. Patient voiced understanding. Patient will continue follow-up with Dr. Domingo Tenorio as far as the reconstruction is concerned. For her right shoulder pain, I will refer the patient to physical therapy Plan: 1. Continue Hydrocodone 5/325 1# q8h prn, for left breast/axilla pain 2. Continue Letrazole 2.5 mg daily 3. Calcium and Vitamin D 4. Referral PT for right shoulder pain 5. Follow-up in 6 months CBC, CMP, DEXA
[2021-08-05 13:39] VITALS: BP 132/81; PULSE 83; RESP 16; TEMP 36.7; O2SAT 96
--- NOTE | 2021-08-06 10:02 | ONC.SCHED ---
Referral: Fax to PT and spoke with Marlen. They will call the patient.
--- NOTE | 2021-08-08 12:58 | ONC.MSW ---
T/C-Visit f/u Activity: Pt had requested a call from this [employer] OPERATOR when she was in clinic earlier this week. Called to clarify what she was needing, she was asking for grocery store gift certificates, which we currently don't have. Offered supportive counseling and coping support as she prepares for her reconstruction breast surgery. No further needs identified at this time.
--- NOTE | 2022-01-21 16:13 | ONC.SCHED ---
DEXA Scans: Patient is scheduled for the DEXA scans on 01/24/22, with a check in time at 1010 and the scan at 1030. Patient was called and expressed agreement in the scheduled time for the scan.
[2022-02-13 11:55] LABS: Add Manual Diff / Slide Review NO; Basophils Absolute Auto 100 /uL (0-100); Basophils Percent Auto 0.9 % (0-2); Eosinophils Absolute Auto 300 /uL (0-450); Eosinophils Percent Auto 5.7 % (2-4); Hematocrit 36.4 % (36-46); Hemoglobin 12.5 g/dL (12.0-16.0); Lymphocytes Absolute Auto 1200 /uL (1100-4500); Lymphocytes Percent Auto 20.7 % (25-40); Mean Corpuscular HGB Conc 34.3 % (30-36); Mean Corpuscular Hemoglobin 30.2 PG (26-34); Mean Corpuscular Volume 88.1 fL (80-100); Monocytes Absolute Auto 500 /uL (0-900); Monocytes Percent Auto 8.1 % (3-14); Neutrophils Absolute Auto 3700 /uL (1500-7000); Neutrophils Percent Auto 64.6 % (50-75); Platelet Count 250 X10^3/uL (150-400); Red Blood Cell Count 4.13 X10^6/uL (4.0-5.2); Red Cell Distribution Width 14.1 % (11.6-14.8); White Blood Cell Count 5.7 X10^3/uL (4.5-11.0)
[2022-02-13 12:04] LABS: Alanine Aminotransferase 15 IU/L (<35); Albumin 3.9 g/dL (3.5-5.0); Albumin Globulin Ratio 1.3 (1.0-2.8); Alkaline Phosphatase 88 U/L (38-126); Aspartate Aminotransferase 19 IU/L (14-36); BUN Creatinine Ratio 30.8 (6-22); Bilirubin Total 0.3 mg/dL (0.2-1.3); Blood Urea Nitrogen 20 mg/dL (7-17); Calcium 8.9 mg/dL (8.4-10.2); Carbon Dioxide 25 mmol/L (22-32); Chloride 106 mmol/L (98-107); Estimated Glomerular Filt Rate > 60 mL/min (>60); Globulin 3.1 g/dL (1.7-4.1); Glucose 106 mg/dL (80-110); HEMOLYSIS < 15 (0-50); Potassium 3.6 mmol/L (3.4-5.1); Sodium 138 mmol/L (137-145)
[2022-02-13 14:06] VITALS: BP 109/71; PULSE 85; RESP 18; TEMP 36.9; O2SAT 98
--- NOTE | 2022-02-13 14:08 | ONC.PN ---
PN -Subjective - Date of Visit Date of visit: 02/13/22 Chief Complaint: Bharati is a 61 year old with left breast cancer. Interval history: Today, patient reported that she still complaining right sided shoulder pain where she had port placement. Patient has tolerated the letrozole quite well. No hot flashes, no night sweats, no joint pain. Since her previous visit, patient has completed bilateral breast reconstruction under the care of Dr. Pemberton. She is complaining a lot of acid reflux. Oncology History: 60-year-old female with left sided ER positive (99%, strong), [place] positive (>85%, strong), Her2 negative, and clinically node negative breast invasive carcinoma after ultrasound-guided biopsy on 08/10/2019. Pathology is positive for lymphovascular invasion. Patient did not notice any lumps by herself and it was screening mammogram detected. No left axillary lymph node enlargement on physical examination or ultrasound study. On 09/30/2019,she underwent left skin sparing mastectomy and left axillary sentinel node biopsy. The final pathology showed invasive carcinoma with mixed lobular and ductal features, the largest invasive focus measuring 5.6 cm, and 2 of 5 sentinel nodes positive for micrometastatic carcinoma, grade 3, unifocal, without DCIS, with LCIS, all margins negative except posterior lateral margin that was positive for invasive carcinoma, Pathology staging pT3 pN1mi(sn). On 11/30/2019, patient started adjuvant chemotherapy with docetaxel/Cytoxan. Patient received only 1 cycle of the chemotherapy. Patient tolerated poorly. Patient reported severe fatigue. She said she was not able to get out of the bed for a week. Patient said that during this period of time he had no appetite, he was having fever, he was feeling aweful. It took almost 6 weeks before she felt human again. Therefore she decided to move forward with radiation therapy. Meanwhile we sent the surgical sample for Oncotype DX score. The plan is to decide on chemotherapy based on the Oncotype DX score result. The Oncotype DX score came back only at 10, with estimated distant recurrence risk at 9 years of 12% with aromatase inhibitor or tamoxifen alone. No apparent benefit for adjuvant chemotherapy. She received adjuvant radiation therapy from 02/14/2020 to 03/26/2020 In 03/2020, patient first tried anastrozole, but stopped 4 days later due to terrible joint pain affecting left ankle as well as bad case of flu. After her visit with me on 05/10/2020, she started letrazole. - Patient Self-Reported Symptoms SR Constitution: Night Sweats SR ears, nose, mouth, throat issues: Congestion, Cough SR respiratory issues: Shortness of breath SR Cardiovascular issues: Chest pain, discomfort, tightness SR Skin issues: Dry skin, Blistering or peeling SR Gastrointestinal issues: Heartburn SR Musculoskeletal issues: Back or neck pain - ROS All Systems: reviewed and no additional remarkable complaints except as stated Home Medications and Allergies Home Medications Medication Instructions Recorded Confirmed Type albuterol sulfate 90 mcg/actuation 2 puff inhalation Q4-6H PRN 06/01/20 02/13/22 Rx aerosol inhaler shortness of breath or wheezing #18 grams alprazolam 0.5 mg tablet (Xanax) 0.5 mg PO BID PRN anxiety #60 tabs 11/07/21 02/13/22 Rx acetaminophen 300 mg-codeine 15 mg 1 tab PO Q6H PRN cancer associated 02/13/22 Rx tablet pain #60 tabs letrozole 2.5 mg tablet 2.5 mg PO DAILY breast cancer #90 02/13/22 Rx tabs Allergies Allergy/AdvReac Type Severity Reaction Status Date / Time cefuroxime Allergy Severe throat Verified 02/04/21 10:24 swelling clarithromycin Allergy Severe Swelling Verified 02/04/21 10:24 of Lip/Tongue/Throat clindamycin Allergy Severe SOB/THROAT Verified 02/04/21 10:24 SWELL levofloxacin Allergy Severe Difficulty Verified 02/04/21 10:24 Breathing metronidazole Allergy Severe Swelling Verified 02/04/21 10:24 of Lip/Tongue/Throat moxifloxacin Allergy Severe Difficulty Verified 02/04/21 10:24 Breathing nitrofurantoin Allergy Severe Swelling Verified 02/04/21 10:24 of Lip/Tongue/Throat NSAIDS (Non-Steroidal Allergy Severe SOB/THROAT Verified 02/04/21 10:24 Anti-Inflamma SWELLS Sulfa (Sulfonamide Allergy Severe Swelling Verified 02/04/21 10:24 Antibiotics) of Lip/Tongue/Throat tramadol Allergy Severe Swelling Verified 02/04/21 10:24 of Lip/Tongue/Throat terbinafine Allergy Mild Nausea, Verified 02/04/21 10:24 diarrhea oxycodone Allergy Confusion Verified 02/04/21 10:24 buspirone AdvReac Severe numbness Verified 02/04/21 10:24 to lips, hands, feet, SOB, nausea/ vomiting omeprazole AdvReac Intermediate Diarrhea Verified 02/04/21 10:24 Quinolones AdvReac Intermediate Diarrhea Verified 02/04/21 10:24 sertraline AdvReac Mild DIZZY, Verified 02/04/21 10:24 FLOATING Exam Vital signs: Last Vital Signs Temp 98.4 F 02/13/22 14:06 Pulse 85 02/13/22 14:06 Resp 18 02/13/22 14:06 BP 109/71 02/13/22 14:06 Pulse Ox 98 02/13/22 14:06 - Constitutional positive no acute distress, positive average body habitus, positive cooperative - Routine HEENT Exam Head: Present: normocephalic, atraumatic Eye: Present: EOMI, PERRL, normal accommodation. Absent: conjunctival icterus - Routine Neck Exam Present: supple. Absent: lymphadenopathy, thyromegaly - Routine Chest/Breast/Axilla Exam Axillae: Absent: lymphadenopathy Comments: Breast exams: Both breasts were absent status post by lateral mastectomy. Reconstruction noted. I did not appreciate any nodules or masses. I did not appreciate any skin changes. I did not palpate any enlarged lymph nodes in the axilla on both sides. All physical examinations were chaperoned. - Routine Respiratory Exam Present: Clear to auscultation bilaterally. Absent: wheezes, crackles - Routine Cardiovascular Exam Present: RRR, S1, S2. Absent: murmur, gallop, rubs - Routine Abdominal Exam Present: soft. Absent: tenderness, distended, organomegaly - Routine Extremities Exam Absent: edema - Routine Neurological Exam Present: alert, oriented X3, CN II-XII intact. Absent: sensory deficit, motor deficit - Routine Psychiatric Exam Present: normal affect Results - Labs Laboratory Last Values WBC 5.7 X10^3/uL (4.5-11.0) 02/13/22 11:26 RBC 4.13 X10^6/uL (4.0-5.2) 02/13/22 11:26 Hgb 12.5 g/dL (12.0-16.0) 02/13/22 11:26 Hct 36.4 % (36-46) 02/13/22 11:26 MCV 88.1 fL (80-100) 02/13/22 11:26 MCH 30.2 PG (26-34) 02/13/22 11: MCHC 34.3 % (30-36) 02/13/22 11: RDW 14.1 % (11.6-14.8) 02/13/22 11:26 Plt Count 250 X10^3/uL (150-400) 02/13/22 11:26 Neut % (Auto) 64.6 % (50-75) 02/13/22 11:26 Lymph % (Auto) 20.7 % (25-40) L 02/13/22 11:26 [place] % (Auto) 8.1 % (3-14) 02/13/22 11:26 Eos % (Auto) 5.7 % (2-4) H 02/13/22 11:26 Baso % (Auto) 0.9 % (0-2) 02/13/22 11:26 Neut # (Auto) 3700 /uL (7495-5938) 02/13/22 11:26 Lymph # (Auto) 1200 /uL (8067-0586) 02/13/22 11:26 [place] # (Auto) 500 /uL (0-900) 02/13/22 11:26 Eos # (Auto) 300 /uL (0-450) 02/13/22 11:26 Baso # (Auto) 100 /uL (0-100) 02/13/22 11:26 Total Counted 100 12/08/19 13:42 Seg Neutrophils % 49.0 % (38-70) 12/08/19 13:42 Band Neutrophils % 18.0 % (3-7) H 12/08/19 13:42 Lymphocytes % (Manual) 10.0 % (25-45) L 12/08/19 13:42 Atypical Lymphs % 4.0 % (-0) H 12/08/19 13:42 Monocytes % (Manual) 9.0 % (2-11) 12/08/19 13:42 Eosinophils % (Manual) 2.0 % (2-4) 12/08/19 13:42 Metamyelocytes % 6.0 % (-0) H 12/08/19 13:42 Myelocytes % 2.0 % (-0) H 12/08/19 13:42 Neutrophils # (Manual) 86427 /uL (6036-6262) H 12/08/19 13:42 Toxic Granulation Present H 12/08/19 13:42 Dohle Bodies 2+ H 12/08/19 13:42 RBC Morphology See below 12/08/19 13:42 Sodium 138 mmol/L (137-145) 02/13/22 11:26 Potassium 3.6 mmol/L (3.4-5.1) 02/13/22 11:26 Chloride 106 mmol/L (98-107) 02/13/22 11:26 Carbon Dioxide 25 mmol/L (22-32) 02/13/22 11:26 BUN 20 mg/dL (7-17) H 02/13/22 11:26 Creatinine 0.65 mg/dL (0.52-1.04) 02/13/22 11:26 Estimated GFR > 60 mL/min (>60) 02/13/22 11:26 BUN/Creatinine Ratio 30.8 (6-22) H 02/13/22 11:26 Glucose 106 mg/dL (80-110) 02/13/22 11:26 Calcium 8.9 mg/dL (8.4-10.2) 02/13/22 11:26 Total Bilirubin 0.3 mg/dL (0.2-1.3) 02/13/22 11:26 AST 19 IU/L (14-36) 02/13/22 11:26 ALT 15 IU/L (<35) 02/13/22 11:26 Alkaline Phosphatase 88 U/L (38-126) 02/13/22 11:26 Total Protein 7.0 g/dL (6.3-8.2) 02/13/22 11:26 Albumin 3.9 g/dL (3.5-5.0) 02/13/22 11:26 Globulin 3.1 g/dL (1.7-4.1) 02/13/22 11:26 Albumin/Globulin Ratio 1.3 (1.0-2.8) 02/13/22 11:26 - Imaging Additional studies: Procedures Local excision of lesion of breast (05/05/12) Assessment and Plan (1) 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, estrogen receptor positive Bharati is a 61 year old female with left breast HR+, HER2- mixed ductal and lobular carcinoma for which she underwent left mastectomy on 09/30/2019. Micro-metastases in 2 of 5 sentinel nodes were noted. Margins were negative. She received 1 cycle of docetaxel/Cytoxan and was not able to tolerate. She developed grade 3 fatigue. Therefore we decided to send the Oncotype Dx score. The score came back 10. Chemotherapy was deemed not indicated. Patient then underwent adjuvant radiation therapy from 02/14/2020 to 03/26/2020. On 04/09/2020, patient tried anastrozole but had to stop after taking only 4 pills due to terrible joint pain. From 05/10/2020, she started letrazole. She tolerated quite well. Patient also underwent bilateral breast reconstruction under the care Dr. Pemberton. Assessment: Overall, patient has tolerated the medications quite well. I talked with the patient that I am recommending that patient continue letrozole 2.5 mg once a day and continue the calcium and vitamin-D. Her DEXA scan from 01/24/2022 showed evidence of osteopenia but not osteoporosis. Plan: 1. Continue Letrazole 2.5 mg daily 2. Calcium and Vitamin D 3. Follow-up in 6 months CBC, CMP
--- NOTE | 2022-08-14 15:28 | P.PNONC_ITS ---
PN -Subjective - Date of Visit Date of visit: 08/14/22 Chief Complaint: Bharati is a 61 year old with left breast cancer. Interval history: She presents here today for scheduled follow-up visit. Currently patient is taking letrozole 2.5 mg once a day and this is her beginning of the third year. Patient has tolerated quite well. No hot flashes no night sweats. No bone pain. Oncology History: 61-year-old female with left sided ER positive (99%, strong), [place] positive (>85%, strong), Her2 negative, and clinically node negative breast invasive carcinoma after ultrasound-guided biopsy on 08/10/2019. Pathology is positive for lymphovascular invasion. Patient did not notice any lumps by herself and it was screening mammogram detected. No left axillary lymph node enlargement on physical examination or ultrasound study. On 09/30/2019,she underwent left skin sparing mastectomy and left axillary sentinel node biopsy. The final pathology showed invasive carcinoma with mixed lobular and ductal features, the largest invasive focus measuring 5.6 cm, and 2 of 5 sentinel nodes positive for micrometastatic carcinoma, grade 3, unifocal, without DCIS, with LCIS, all margins negative except posterior lateral margin that was positive for invasive carcinoma, Pathology staging pT3 pN1mi(sn). On 11/30/2019, patient started adjuvant chemotherapy with docetaxel/Cytoxan. Patient received only 1 cycle of the chemotherapy. Patient tolerated poorly. Patient reported severe fatigue. She said she was not able to get out of the bed for a week. Patient said that during this period of time he had no appetite, he was having fever, he was feeling aweful. It took almost 6 weeks before she felt human again. Therefore she decided to move forward with radiation therapy. Meanwhile we sent the surgical sample for Oncotype DX score. The plan is to decide on chemotherapy based on the Oncotype DX score result. The Oncotype DX score came back only at 10, with estimated distant recurrence risk at 9 years of 12% with aromatase inhibitor or tamoxifen alone. No apparent benefit for adjuvant chemotherapy. She received adjuvant radiation therapy from 02/14/2020 to 03/26/2020 In 03/2020, patient first tried anastrozole, but stopped 4 days later due to terrible joint pain affecting left ankle as well as bad case of flu. After her visit with me on 05/10/2020, she started letrazole. - Patient Self-Reported Symptoms SR Constitution: Night Sweats SR ears, nose, mouth, throat issues: Congestion, Cough SR respiratory issues: Shortness of breath SR Cardiovascular issues: Chest pain, discomfort, tightness SR Skin issues: Dry skin, Blistering or peeling SR Gastrointestinal issues: Heartburn SR Musculoskeletal issues: Back or neck pain - ROS All Systems: reviewed and no additional remarkable complaints except as stated Home Medications and Allergies Home Medications Medication Instructions Recorded Confirmed Type albuterol sulfate 90 mcg/actuation 2 puff inhalation Q4-6H PRN 06/01/20 07/17/22 Rx aerosol inhaler shortness of breath or wheezing #18 grams acetaminophen 300 mg-codeine 15 mg 1 tab PO Q6H PRN cancer associated 02/13/22 07/17/22 Rx tablet pain #60 tabs alprazolam 0.5 mg tablet (Xanax) 0.5 mg PO BID PRN anxiety #60 tabs 06/05/22 07/17/22 Rx letrozole 2.5 mg tablet 2.5 mg PO DAILY breast cancer #90 08/14/22 Rx tabs Allergies Allergy/AdvReac Type Severity Reaction Status Date / Time cefuroxime Allergy Severe throat Verified 07/17/22 14:25 swelling clarithromycin Allergy Severe Swelling Verified 07/17/22 14:25 of Lip/Tongue/Throat clindamycin Allergy Severe SOB/THROAT Verified 07/17/22 14:25 SWELL levofloxacin Allergy Severe Difficulty Verified 07/17/22 14:25 Breathing metronidazole Allergy Severe Swelling Verified 07/17/22 14:25 of Lip/Tongue/Throat moxifloxacin Allergy Severe Difficulty Verified 07/17/22 14:25 Breathing nitrofurantoin Allergy Severe Swelling Verified 07/17/22 14:25 of Lip/Tongue/Throat NSAIDS (Non-Steroidal Allergy Severe SOB/THROAT Verified 07/17/22 14:25 Anti-Inflamma SWELLS Sulfa (Sulfonamide Allergy Severe Swelling Verified 07/17/22 14:25 Antibiotics) of Lip/Tongue/Throat tramadol Allergy Severe Swelling Verified 07/17/22 14:25 of Lip/Tongue/Throat terbinafine Allergy Mild Nausea, Verified 07/17/22 14:25 diarrhea oxycodone Allergy Confusion Verified 07/17/22 14:25 buspirone AdvReac Severe numbness Verified 03/02/23 14:25 to lips, hands, feet, SOB, nausea/ vomiting omeprazole AdvReac Intermediate Diarrhea Verified 07/17/22 14:25 Quinolones AdvReac Intermediate Diarrhea Verified 07/17/22 14:25 sertraline AdvReac Mild DIZZY, Verified 07/17/22 14:25 FLOATING Exam Vital signs: 08/14/22 15:48 Last Vital Signs Temp 97.9 F 08/14/22 15:29 Pulse 81 08/14/22 15:29 Resp 18 08/14/22 15:29 BP 120/70 08/14/22 15:29 Pulse Ox 98 08/14/22 15:29 Narrative: Patient appears comfortable and not in any acute respiratory distress. She is pleasant cooperative. She is here accompanied by her . She has a ECOG performance score of about 1. Results - Labs Laboratory Last Values WBC 5.7 X10^3/uL (4.5-11.0) 02/13/22 11:26 RBC 4.13 X10^6/uL (4.0-5.2) 02/13/22 11:26 Hgb 12.5 g/dL (12.0-16.0) 02/13/22 11:26 Hct 36.4 % (36-46) 02/13/22 11:26 MCV 88.1 fL (80-100) 02/13/22 11:26 MCH 30.2 PG (26-34) 02/13/22 11:26 MCHC 34.3 % (30-36) 02/13/22 11:26 RDW 14.1 % (11.6-14.8) 02/13/22 11:26 Plt Count 250 X10^3/uL (150-400) 02/13/22 11:26 Neut % (Auto) 64.6 % (50-75) 02/13/22 11:26 Lymph % (Auto) 20.7 % (25-40) L 02/13/22 11:26 [place] % (Auto) 8.1 % (3-14) 02/13/22 11:26 Eos % (Auto) 5.7 % (2-4) H 02/13/22 11:26 Baso % (Auto) 0.9 % (0-2) 02/13/22 11:26 Neut # (Auto) 3700 /uL (7753-1453) 02/13/22 11:26 Lymph # (Auto) 1200 /uL (5305-7375) 02/13/22 11:26 [place] # (Auto) 500 /uL (0-900) 02/13/22 11:26 Eos # (Auto) 300 /uL (0-450) 02/13/22 11:26 Baso # (Auto) 100 /uL (0-100) 02/13/22 11:26 Total Counted 100 12/08/19 13:42 Seg Neutrophils % 49.0 % (38-70) 12/08/19 13:42 Band Neutrophils % 18.0 % (3-7) H 12/08/19 13:42 Lymphocytes % (Manual) 10.0 % (25-45) L 12/08/19 13:42 Atypical Lymphs % 4.0 % (-0) H 12/08/19 13:42 Monocytes % (Manual) 9.0 % (2-11) 12/08/19 13:42 Eosinophils % (Manual) 2.0 % (2-4) 12/08/19 13:42 Metamyelocytes % 6.0 % (-0) H 12/08/19 13:42 Myelocytes % 2.0 % (-0) H 12/08/19 13:42 Neutrophils # (Manual) 08505 /uL (5117-4101) H 12/08/19 13:42 Toxic Granulation Present H 12/08/19 13:42 Dohle Bodies 2+ H 12/08/19 13:42 RBC Morphology See below 12/08/19 13:42 Sodium 138 mmol/L (137-145) 02/13/22 11:26 Potassium 3.6 mmol/L (3.4-5.1) 02/13/22 11:26 Chloride 106 mmol/L (98-107) 02/13/22 11:26 Carbon Dioxide 25 mmol/L (22-32) 02/13/22 11:26 BUN 20 mg/dL (7-17) H 02/13/22 11:26 Creatinine 0.65 mg/dL (0.52-1.04) 02/13/22 11:26 Estimated GFR > 60 mL/min (>60) 02/13/22 11:26 BUN/Creatinine Ratio 30.8 (6-22) H 02/13/22 11:26 Glucose 106 mg/dL (80-110) 02/13/22 11:26 Calcium 8.9 mg/dL (8.4-10.2) 02/13/22 11:26 Total Bilirubin 0.3 mg/dL (0.2-1.3) 02/13/22 11:26 AST 19 IU/L (14-36) 02/13/22 11:26 ALT 15 IU/L (<35) 02/13/22 11:26 Alkaline Phosphatase 88 U/L (38-126) 02/13/22 11:26 Total Protein 7.0 g/dL (6.3-8.2) 02/13/22 11:26 Albumin 3.9 g/dL (3.5-5.0) 02/13/22 11:26 Globulin 3.1 g/dL (1.7-4.1) 02/13/22 11:26 Albumin/Globulin Ratio 1.3 (1.0-2.8) 02/13/22 11:26 - Imaging Additional studies: Procedures Local excision of lesion of breast (05/05/12) Assessment and Plan (1) 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, estrogen receptor positive Bharati is a 61 year old female with left breast HR+, HER2- mixed ductal and lobular carcinoma for which she underwent left mastectomy on 09/30/2019. Micro- metastases in 2 of 5 sentinel nodes were noted. Margins were negative. She received 1 cycle of docetaxel/Cytoxan and was not able to tolerate. She developed grade 3 fatigue. Therefore we decided to send the Oncotype Dx score. The score came back 10. Chemotherapy was deemed not indicated. Patient then underwent adjuvant radiation therapy from 02/14/2020 to 03/26/2020. On 04/09/2020, patient tried anastrozole but had to stop after taking only 4 pills due to terrible joint pain. From 05/10/2020, she started letrazole. She tolerated quite well. Patient also underwent bilateral breast reconstruction under the care Dr. Pemberton. Assessment: Overall, patient has tolerated the medications quite well. I talked with the patient that I am recommending that patient continue letrozole 2.5 mg once a day and continue the calcium and vitamin-D. Plan: 1. Continue Letrazole 2.5 mg daily 2. Calcium and Vitamin D 3. Follow-up in Apr 2023, CBC, CMP
[2022-08-14 15:29] VITALS: BP 120/70; PULSE 81; RESP 18; TEMP 36.6; O2SAT 98
--- NOTE | 2023-04-07 11:35 | ONC.SCHED ---
LVM for pt to call back re: JENNY
--- NOTE | 2023-04-07 13:55 | ONC.SCHED ---
spoke with patient - she will have labs drawn and agrees to nurse eval call 04/23/23. She does have a new pt appointment with Dr. Rojas at [facility] scheduled but will discuss the need for this with nursing once lab results are received.
--- NOTE | 2023-04-23 14:52 | PC.NURSE ---
JENNY: per patient request referral entered to [facility]; planner/scheduler informed.
== END ==
PROVIDERS: Internal Medicine; PCP Internal Medicine; Referring Provider Internal Medicine; Visit Provider Internal Medicine Hematology & Oncology
DX: C50.412 Malignant neoplasm of upper-outer quadrant of left female breast (principal); C77.3 Secondary and unspecified malignant neoplasm of axilla and upper limb lymph nodes; Z17.0 Estrogen receptor positive status [ER+]
CPT/HCPCS: 36415; 36591; 80053; 85025; 96361; 96365; 96366; 96372; 96375; 96413; 96415; 96417; 96523; 99204; 99213; 99214; 99215; J1100; J2405; J7050; J9070; J9171; Q5111

== ENCOUNTER → 2023-05-14 13:30 | Outpatient (CLI) | payer OTHER, MEDICAID, SELFPAY ==
[2019-11-02 15:09] VITALS: BMI 21.4
[2023-05-14 14:09] LABS: Add Manual Diff / Slide Review NO; Basophils Absolute Auto 100 /uL (0-100); Basophils Percent Auto 0.8 % (0-2); Eosinophils Absolute Auto 500 /uL (0-450); Eosinophils Percent Auto 6.2 % (2-4); Hematocrit 38.7 % (36-46); Hemoglobin 12.9 g/dL (12.0-16.0); Lymphocytes Absolute Auto 1700 /uL (1100-4500); Lymphocytes Percent Auto 22.5 % (25-40); Mean Corpuscular HGB Conc 33.5 % (30-36); Mean Corpuscular Hemoglobin 29.7 PG (26-34); Mean Corpuscular Volume 88.7 fL (80-100); Monocytes Absolute Auto 600 /uL (0-900); Monocytes Percent Auto 7.6 % (3-14); Neutrophils Absolute Auto 4900 /uL (1500-7000); Neutrophils Percent Auto 62.9 % (50-75); Platelet Count 278 X10^3/uL (150-400); Red Blood Cell Count 4.36 X10^6/uL (4.0-5.2); Red Cell Distribution Width 14.7 % (11.6-14.8); White Blood Cell Count 7.8 X10^3/uL (4.5-11.0)
[2023-05-14 14:27] LABS: Alanine Aminotransferase 17 IU/L (<35); Albumin 3.9 g/dL (3.5-5.0); Albumin Globulin Ratio 1.3 (1.0-2.8); Alkaline Phosphatase 99 U/L (38-126); Aspartate Aminotransferase 21 IU/L (14-36); BUN Creatinine Ratio 33.8 (6-22); Bilirubin Total 0.3 mg/dL (0.2-1.3); Blood Urea Nitrogen 23 mg/dL (7-17); Calcium 9.3 mg/dL (8.4-10.2); Carbon Dioxide 27 mmol/L (22-32); Chloride 106 mmol/L (98-107); Estimated Glomerular Filt Rate > 60 mL/min (>60); Glucose 94 mg/dL (80-110); HEMOLYSIS < 15 (0-50); Sodium 138 mmol/L (137-145); Total Protein 6.9 g/dL (6.3-8.2)
== END ==
PROVIDERS: Family Provider Internal Medicine; PCP Internal Medicine; Referring Provider Internal Medicine Hematology & Oncology; Visit Provider Internal Medicine Hematology & Oncology
DX: C50.412 Malignant neoplasm of upper-outer quadrant of left female breast (principal); Z17.0 Estrogen receptor positive status [ER+]
CPT/HCPCS: 36415; 80053; 85025

== ENCOUNTER → 2023-06-28 16:14 | Outpatient (CLI) | payer OTHER, MEDICAID, SELFPAY ==
[2019-11-02 15:09] VITALS: BMI 21.4
== END ==
PROVIDERS: Family Provider Internal Medicine; PCP Internal Medicine; Visit Provider Physician Assistant Surgical
DX: R30.0 Dysuria (principal)
CPT/HCPCS: 81002; 87077; 87086; 87186

== ENCOUNTER → 2024-07-12 17:23 | Outpatient (CLI) | payer OTHER, SELFPAY ==
[2019-11-02 15:09] VITALS: BMI 21.4
--- NOTE | 2024-07-12 17:25 | DI.RAD.S_ITS ---
PROCEDURE: XR HAND LT MIN 3V INDICATIONS: Left wrist and hand pain TECHNIQUE: 3 views of the hand(s) acquired. COMPARISON: [facility], CR, XR WRIST LT MIN 3V, 07/12/2024, 17:33. FINDINGS: Bones: No fractures or dislocations. Carpal bones are normally aligned. No suspicious bony lesions. Moderate degenerative changes at the 1st CMC joint. Soft tissues: No suspicious soft tissue calcifications. IMPRESSION: No acute bony abnormality. Dictated by: Mariusz Fong M.D. on 07/12/2024 at 18:47 Approved by: Mariusz Fong M.D. on 07/12/2024 at 18:48
--- NOTE | 2024-07-12 17:25 | DI.RAD.S_ITS ---
PROCEDURE: XR WRIST LT MIN 3V INDICATIONS: Left wrist and hand pain TECHNIQUE: 4 views of the wrist were acquired. COMPARISON: [facility], CR, XR HAND LT MIN 3V, 07/12/2024, 17:33. FINDINGS: Bones: No fractures or dislocations. No suspicious bony lesions. [id number] degenerative changes at the 1st CMC joint and tri-scaphoid joint. Soft tissues: No suspicious soft tissue calcifications. IMPRESSION: No acute bony abnormality. Moderate degenerative changes at the 1st CMC and tri-scaphoid joint. Dictated by: Mariusz Fong M.D. on 07/12/2024 at 18:44 Approved by: Mariusz Fong M.D. on 07/12/2024 at 18:47
== END ==
PROVIDERS: Family Provider Internal Medicine; PCP Internal Medicine; Referring Provider Physician Assistant Surgical; Visit Provider Physician Assistant Surgical
DX: M25.532 Pain in left wrist (principal); M79.642 Pain in left hand
CPT/HCPCS: 73110; 73130

== ENCOUNTER → 2024-10-14 15:41 | Outpatient (CLI) | payer OTHER, SELFPAY ==
[2019-11-02 15:09] VITALS: BMI 21.4
--- NOTE | 2024-10-14 15:44 | DI.RAD.S_ITS ---
PROCEDURE: FL JOINT INJECTION LARGE RT INDICATIONS: rt shoulder pain COMPARISON: None. TECHNIQUE: The indications, alternatives, benefits, risks, and complications of the procedure were explained to the patient. Written informed consent was obtained and placed in the chart. The patient was placed in an appropriate position on the fluoroscopy table, and a site was chosen for percutaneous access under fluoroscopic guidance. The site was prepped and draped in a sterile fashion. Local anesthetic was administered using a 1% lidocaine solution. A hypodermic or spinal needle was then used to access the symptomatic joint. Intra-articular location of the needle tip was confirmed by injecting a small amount of contrast, followed by steroid administration. The needle was then withdrawn, and a bandage applied to the puncture site. FINDINGS: Joint injected: Right shoulder Medications injected: 4 mL of 40 mg/mL Kenalog and 0.5% Ropivacaine mixture. Patient's pain before injection: 6 out of 10. Patient's pain after injection: 1.5 out of 10. Complications: None. IMPRESSION: Successful fluoroscopically guided administration of steroid and anaesthetic solution into the right shoulder joint. Dictated by: Cuauhtemoc Michel M.D. on 10/14/2024 at 16:41 Approved by: Cuauhtemoc Michel M.D. on 10/14/2024 at 16:41
[2024-10-14] MEDS: LIDOCAINE 1% 20 ML INJ (16:36)
[2024-10-14] MEDS: TRIAMCINOLONE 40 MG/ML VIAL INTRA-ARTI (16:36)
[2024-10-14] MEDS: ROPIVACAINE 0.5% PF 5 MG/ML 20ML VIAL 3 ML INJ (16:36)
== END ==
PROVIDERS: Family Provider Internal Medicine; PCP Internal Medicine; Referring Provider Orthopaedic Surgery; Visit Provider Orthopaedic Surgery
DX: M25.511 Pain in right shoulder (principal); M19.011 Primary osteoarthritis, right shoulder; R29.898 Other symptoms and signs involving the musculoskeletal system; M75.21 Bicipital tendinitis, right shoulder; M75.41 Impingement syndrome of right shoulder
CPT/HCPCS: 20610; 77002; Q9967

== ENCOUNTER 2025-02-22 10:57 | Emergency (ER) | payer OTHER, SELFPAY ==
[2019-11-02 15:09] VITALS: BMI 21.4
[2025-02-22 11:08] VITALS: BP 137/81; PULSE 104; RESP 18; TEMP 36.7; O2SAT 97; BMI 22.8
[2025-02-22] MEDS: diphenhydrAMINE 25 MG TABLET PO (11:34)
[2025-02-22] MEDS: FAMOTIDINE 20 MG TABLET PO (11:34)
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
[2025-02-22 12:12] VITALS: BP 170/96; PULSE 80; RESP 18; O2SAT 98
== END 2025-02-22 12:13 | disposition home or self-care (01) ==
PROVIDERS: Emergency Provider Physician Assistant; Family Provider Internal Medicine; PCP Internal Medicine
DX: T78.40XA Allergy, unspecified, initial encounter (principal)
CPT/HCPCS: 99283; A9270

== ENCOUNTER → 2025-04-22 13:46 | Outpatient (CLI) | payer OTHER, SELFPAY ==
[2019-11-02 15:09] VITALS: BMI 21.4
== END ==
PROVIDERS: PCP Internal Medicine; Visit Provider Registered Nurse
DX: R30.0 Dysuria (principal)
CPT/HCPCS: 87077; 87086